=== PATIENT | female | born 1965 | race Caucasian/White ===

== ENCOUNTER → 2016-10-11 | Outpatient (CLI) | payer MEDICARE, BC ==
[~2016-10-11] MED LIST: DENOSUMAB 60 MG/ML 1 ML SYRINGE SQ ONE
[2016-10-11 09:15] VITALS: BP 102/67; PULSE 66; RESP 18; TEMP 98.2
== END | disposition home or self-care (01) ==
LOC: PROCWHC3 08:55
PROVIDERS: ATTEND Family Medicine
DX: M81.0 Age-related osteoporosis without current pathological fracture (principal)
CPT/HCPCS: 96372; J0897

== ENCOUNTER → 2016-10-13 | Outpatient (CLI) | payer MEDICARE, BC ==
--- NOTE | 2016-10-13 13:53 | XR ---
ADDENDUM - Added by Tristian Canales M.D. on 10/13/2016 12:46 PM (-08:00) RIGHT SHOULDER, Views INDICATION: Right shoulder pain COMPARISON: None FINDINGS: 3 views of the right shoulder are obtained. Bony structures are intact. Bone mineralization is within normal limits. No dislocation at the glenohumeral joint. Joint spaces are preserved. Soft tissues are within normal limits. IMPRESSION: No acute fracture or dislocation identified. FILM RIGHT SHOULDER: Bony structures are intact. Bone mineralization is within normal limits. No dislocation at the glenohumeral joint. Joint spaces are preserved. Soft tissues are within normal limits.
== END | disposition home or self-care (01) ==
LOC: RADXRMAIN 12:01
PROVIDERS: ATTEND Family Medicine
DX: M25.511 Pain in right shoulder (principal)

== ENCOUNTER → 2016-11-08 | Outpatient (CLI) | payer MEDICARE, BC ==
--- NOTE | 2016-11-08 12:52 | MR ---
MR brain with and without contrast HISTORY: Malignant brain tumor Multiplanar multisequence and postcontrast images through the brain following 10 cc MultiHance IV cor related to prior brain MRI October There is no restricted diffusion. There is no hemorrhage or hydrocephalus. White matter demyelination , craniotomy changes are again noted as on prior exam. No abnormal enhancement suggest tumor recurren ce. Some focal encephalomalacia present at the left parietal lobe at the level of the convexity as on prior exam. Cerebellopontine angles, corpus callosum, pituitary, cervical medullary junction are sta ble. The orbits show symmetric appearance. IMPRESSION: Stable exam, no significant interval change is evident.
== END ==
LOC: RADMRIMAIN 10:14
PROVIDERS: ATTEND Neurological Surgery
DX: C71.9 Malignant neoplasm of brain, unspecified (principal)
CPT/HCPCS: 70553; A9577

== ENCOUNTER → 2016-12-10 | Outpatient (CLI) | payer MEDICARE, BC ==
--- NOTE | 2016-12-10 13:09 | MR ---
EXAMINATION TYPE: MR shoulder RT wo con DATE OF EXAM: 12/10/2016 9:31 AM COMPARISON: Plain film one October 2016 HISTORY: Right shoulder pain TECHNIQUE: Multiplanar, multisequence imaging of the right shoulder is performed without contrast. FINDINGS: Rotator Cuff: There is no casie tear, some fluid signal present in the subacromial subdeltoid bursa, the tendon shows abnormal increased signal and is somewhat attenuated. Acromioclavicular Joint: Intact, hypertrophic change causes some mass effect on the musculotendinous junction of supraspinatus, there is acromial spur distally which may cause some minimal mass effect o n the musculotendinous junction of supraspinatus. Glenohumeral Joint: Intact, no significant arthropathy Labrum: The labrum appears grossly intact given limitation of non-arthrogram study. Biceps Tendon: Biceps tendon shows a normal position, some fluid signal is present along the tendon. Bone marrow signal: No focal abnormal marrow signal is appreciated. Other: No additional significant abnormality is appreciated. IMPRESSION: Suspect tendinosis of the supraspinatus tendon, difficult to exclude a small partial-thickness tear. Correlate for impingement.
== END | disposition home or self-care (01) ==
LOC: RADMRIMAIN 08:45
PROVIDERS: ATTEND Family Medicine
DX: M25.511 Pain in right shoulder (principal)

== ENCOUNTER → 2017-02-21 | Outpatient (CLI) | payer MEDICARE, BC ==
--- NOTE | 2017-02-22 13:00 | MM ---
Reason for exam: screening (asymptomatic). Last mammogram was performed 1 year ago. History: Patient is postmenopausal and has history of other cancer at age 38. Benign excisional biopsy of the right breast, July 31, 1998. Took hormonal contraceptives for 8 years. Took tamoxifen for 1 year beginning at age 37. Physical Findings: A clinical breast exam by your physician is recommended on an annual basis and results should be correlated with mammographic findings. MG 3D Screening Mammo W/Cad Bilateral CC and MLO view(s) were taken. Prior study comparison: February 17, 2016, bilateral MG 3d screening mammo w/cad. The breast tissue is heterogeneously dense. This may lower the sensitivity of mammography. ASSESSMENT: Incomplete: need additional imaging evaluation, BI-RAD 0 RECOMMENDATION: Ultrasound of both breasts. [facility] will attempt to contact patient to return for ultrasound. Palpable abnormality Manage patient on a clinical basis, palpable regions.
--- NOTE | 2017-02-22 17:15 | BD ---
EXAMINATION TYPE: MG DEXA axial skeleton. DATE OF EXAM: 02/21/2017 COMPARISON: NONE CLINICAL HISTORY: Height: 64.5 IN Weight: 117 LBS FRAX RISK QUESTIONS: Alcohol (3 or more units per day): NO Family History (Parent hip fracture): NO Glucocorticoids (More than 3mos): NO (Ex: prednisone, prednisolone, methylprednisolone, dexamethasone, and hydrocortisone). History of Fracture in Adulthood: NO Secondary Osteoporosis: 1. Type 1 Diabetes: NO 2. Hyperthyroidism: NO 3. Menopause before 45: YES AGE 37 4. Malnutrition: YES WHEN HAD BRAIN TUMOR AT AGE 38 5. Chronic liver disease: NO Rheumatoid Arthritis: NO Current Tobacco Use: NO RISK FACTORS HISTORY OF: Active: YES Diet low in dairy products/other sources of calcium: YES Postmenopausal woman: AGE 37 PARTIAL HYST. 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 Bone mineral density as measured about the Lumbar spine is: ----- L1-L4(G/cm2): 1.173 T Score Values are as follows: ----- L2: -0.1 ----- L3: 0.6 ----- L4: -0.4 ----- L1-L4: -0.1 Bone mineral density has: Increased 2.9% since study of: 01/27/2015 Bone mineral density about the R hip (g/cm2): 0.854 Bone mineral density about the L hip (g/cm2): 0.815 T Score values are as follows: -----R Neck: -1.3 -----L Neck: -1.6 -----R Total: -1.8 -----L Total: -1.3 Bone mineral density has: Increased 6.6% since study of: 01/27/2015 IMPRESSION: Osteopenia (T Score between -2.5 and -1 as noted by T score values There is slightly increased risk of fracture and the patient may be considered for treatment. Re-Screen 2-5 years. Bone density has improved 2.9% from the the comparison of 2014 within the lumbar spine. Bone density is improved 6.6% within the bilateral hips from 2015. NOTE: T-SCORE=SD OF THE YOUNG ADULT MEAN.
== END | disposition home or self-care (01) ==
LOC: RADBDWWP 15:34
PROVIDERS: ATTEND Obstetrics & Gynecology
DX: Z12.31 Encounter for screening mammogram for malignant neoplasm of breast (principal); M85.852 Other specified disorders of bone density and structure, left thigh; M85.851 Other specified disorders of bone density and structure, right thigh
CPT/HCPCS: 77080; 77063; G0202

== ENCOUNTER → 2017-02-24 | Outpatient (CLI) | payer MEDICARE, BC ==
--- NOTE | 2017-02-24 11:27 | USB ---
Reason for exam: additional evaluation requested from abnormal screening. History: Patient is postmenopausal and has history of other cancer at age 38. Benign excisional biopsy of the right breast, July 31, 1998. Took hormonal contraceptives for 8 years. Took tamoxifen for 1 year beginning at age 37. Physical Findings: Nurse did not find any significant physical abnormalities on exam. US Breast Workup ANDREA Right breast ultrasound includes all four quadrants, the retroareolar region and axilla. Finding demonstrates no cystic or solid lesion seen. Left breast ultrasound includes all four quadrants, the retroareolar region and axilla. Finding demonstrates no cystic or solid lesion seen. These results were verbally communicated with the patient and result sheet given to the patient on 02/24/17. ASSESSMENT: Probably benign, BI-RAD 3 RECOMMENDATION: Ultrasound of both breasts in 6 months. Manage patient on a clinical basis.
== END | disposition home or self-care (01) ==
LOC: RADUSWWP 10:07
PROVIDERS: ATTEND Obstetrics & Gynecology
DX: R92.8 Other abnormal and inconclusive findings on diagnostic imaging of breast (principal)

== ENCOUNTER → 2017-04-11 | Outpatient (CLI) | payer MEDICARE, BC ==
[2017-04-11 08:55] VITALS: BP 104/69; PULSE 66; RESP 16; TEMP 98.4
== END | disposition home or self-care (01) ==
LOC: PROCWHC3 08:40
PROVIDERS: ATTEND Family Medicine
DX: M81.0 Age-related osteoporosis without current pathological fracture (principal)
CPT/HCPCS: 96372; J0897

== ENCOUNTER → 2017-10-11 | Outpatient (CLI) | payer MEDICARE, BC ==
[2017-10-11 08:51] VITALS: BP 131/62; PULSE 74; RESP 18; TEMP 98.4
== END | disposition home or self-care (01) ==
LOC: PROCWHC3 08:22
PROVIDERS: ATTEND Family Medicine
DX: M81.0 Age-related osteoporosis without current pathological fracture (principal)
CPT/HCPCS: 96372; J0897

== ENCOUNTER → 2017-11-08 | Outpatient (CLI) | payer MEDICARE, BC ==
--- NOTE | 2017-11-08 10:27 | MR ---
EXAMINATION TYPE: MR brain wo/w con DATE OF EXAM: 11/08/2017 COMPARISON: 11/08/2016 HISTORY: Malignant neoplasm of brain, unspecified CONTRAST: Performed utilizing 6 mL intravenous Gadavist gadolinium contrast. TECHNIQUE: Multiplanar, multiecho imaging on a 3.0 Opal magnet is performed through the brain. Stud y is performed within 24 hours of arrival to the hospital. The craniovertebral junction is normal. The pituitary is normal. Diffusion-weighted imaging is performed. No abnormal hyperintensity is present to suggest an acute i ntracranial infarct or acute ischemic change. There is confluent white matter changes left centrum semiovale. Some mild increased signal is present to the right centrum semiovale. This may be more focal in the left parietal-occipital region. These areas were present previously and appears stable. Ventricles and sulci are appropriate for the patient age. No abnormal enhancement is evident. IMPRESSIONS: 1. Stable deep white matter changes. 2. No suspicious recurrent or enhancing masses are evident.
== END ==
LOC: RADMRIMAIN 08:37
PROVIDERS: ATTEND Neurological Surgery
DX: C71.9 Malignant neoplasm of brain, unspecified (principal); R90.89 Other abnormal findings on diagnostic imaging of central nervous system
CPT/HCPCS: 70553; A9581

== ENCOUNTER → 2018-01-11 | Outpatient (CLI) | payer MEDICARE, BC ==
--- NOTE | 2018-01-11 08:54 | US ---
EXAMINATION TYPE: US kidneys/renal and bladder DATE OF EXAM: 01/11/2018 COMPARISON: NONE CLINICAL HISTORY: 52-year-old female R94.4 Abnormal Renal Function. Abnormal labs, no pain TECHNIQUE: Multiple sonographic images of the kidneys are obtained. FINDINGS: EXAM MEASUREMENTS: Right Kidney: 8.8 x 4.1 x 4.6 cm Left Kidney: 8.1 x 3.6 x 4.7 cm Right Kidney: No hydronephrosis. Left Kidney: No hydronephrosis. Bladder: wnl Bilateral Jets seen IMPRESSION: No hydronephrosis. Both ureteral jets are seen.
== END | disposition home or self-care (01) ==
LOC: RADUSWWP 08:04
PROVIDERS: ATTEND Family Medicine
DX: R94.4 Abnormal results of kidney function studies (principal)
CPT/HCPCS: 76770

== ENCOUNTER → 2018-01-23 | Outpatient (CLI) | payer MEDICARE, BC ==
[2018-01-23 10:16] LABS: Anion Gap 8 mmol/L; Blood Urea Nitrogen 14 mg/dL (7-17); Calcium 8.7 mg/dL (8.4-10.2); Carbon Dioxide 28 mmol/L (22-30); Chloride 105 mmol/L (98-107); Glucose 95 mg/dL (74-99); Potassium 4.6 mmol/L (3.5-5.1); Sodium 141 mmol/L (137-145)
[2018-01-23 11:33] LABS: Collection Time,Urine 24 hrs; Total Volume 24 Hour,Urine 1000 mls (800-1800)
[2018-01-23 11:55] LABS: Total Protein 24 Hour,Urine 110 mg/24hr (42.0-225.0)
[2018-01-23 21:16] LABS: Hemoglobin A1C 5.6 % (4.0-6.0)
== END | disposition home or self-care (01) ==
LOC: LABWHC1 09:02
PROVIDERS: ATTEND Family Medicine
DX: R94.4 Abnormal results of kidney function studies (principal); R73.09 Other abnormal glucose
CPT/HCPCS: 36415; 80048; 81050; 82575; 83036; 84156

== ENCOUNTER → 2018-02-28 | Outpatient (CLI) | payer MEDICARE, BC ==
--- NOTE | 2018-02-28 09:38 | MM ---
Reason for exam: additional evaluation requested from prior study. Last mammogram was performed 1 year ago. History: Patient is postmenopausal and has history of other cancer at age 38. Benign excisional biopsy of the right breast, July 31, 1998. Took hormonal contraceptives for 8 years. Took tamoxifen for 1 year beginning at age 37. Physical Findings: Nurse Summary: 1cm nodule in the right breast at 11 o'clock and a 1cm nodule in the left breast at 12 o'clock (nurse dw). MG 3D Diag Mammo W/Cad ANDREA Bilateral CC and MLO view(s) were taken. Prior study comparison: February 21, 2017, bilateral MG 3d screening mammo w/cad. February 17, 2016, bilateral MG 3d screening mammo w/cad. The breast tissue is heterogeneously dense. This may lower the sensitivity of mammography. There is no discrete abnormality. These results were verbally communicated with the patient and result sheet given to the patient on 02/28/18. ASSESSMENT: Incomplete: need additional imaging evaluation, BI-RAD 0 RECOMMENDATION: Ultrasound of both breasts. (palpable by nurse)
--- NOTE | 2018-02-28 09:39 | USB ---
Reason for exam: additional evaluation requested from abnormal screening. History: Patient is postmenopausal and has history of other cancer at age 38. Benign excisional biopsy of the right breast, July 31, 1998. Took hormonal contraceptives for 8 years. Took tamoxifen for 1 year beginning at age 37. US Breast Limited BILAT Right limited breast ultrasound including focal area of concern, retroareolar and axilla is negative. Left limited breast ultrasound including focal area of concern, retroareolar and axilla is negative. These results were verbally communicated with the patient and result sheet given to the patient on 02/28/18. ASSESSMENT: Negative, BI-RAD 1 RECOMMENDATION: Routine screening mammogram of both breasts in 1 year.
== END | disposition home or self-care (01) ==
LOC: RADMAMWWP 08:11
PROVIDERS: ATTEND Obstetrics & Gynecology
DX: R92.8 Other abnormal and inconclusive findings on diagnostic imaging of breast (principal)
CPT/HCPCS: 77066; 76642; G0279; 77062

== ENCOUNTER → 2018-04-11 | Outpatient (CLI) | payer MEDICARE, BC ==
[2018-04-11 09:31] VITALS: BP 108/74; PULSE 70; RESP 15; TEMP 98.3
== END | disposition home or self-care (01) ==
LOC: PROCWHC3 09:18
PROVIDERS: ATTEND Physician Assistant
DX: M81.0 Age-related osteoporosis without current pathological fracture (principal)
CPT/HCPCS: 96372; J0897

== ENCOUNTER → 2018-06-28 | Day surgery (SDC) | payer MEDICARE, BC ==
[2018-06-27 09:12] VITALS: BMI 19.1
[~2018-06-28] MED LIST changes: -DENOSUMAB 60 MG/ML 1 ML SYRINGE SQ ONE; +LACTATED RINGERS 1,000 ML IV SCH; +LIDOCAINE 1% 20 ML VIAL (10MG/ML) FOR IV START INTRADERMA PRN; +LIDOCAINE 1% INJ 10MG/ML (20 ML MDV) ONE; +PROPOFOL 10 MG/ML 20 ML VIAL IV ONE
[2018-06-28 09:37] VITALS: RESP 16; TEMP 98.3
--- NOTE | 2018-06-28 10:52 | P.PCN ---
Date of Procedure: 06/28/18 Procedure(s) Performed: Brief history: Patient is a pleasant 53-year-old white female, scheduled for an elective upper endoscopy as well as colonoscopy as a part of evaluation of GERD and screening for colorectal neoplasia. Procedure performed: Esophagogastroduodenoscopy with biopsy Colonoscopy Preoperative diagnosis: GERD Screening for colon cancer Anesthesia: MAC Procedure: After informed consent was obtained from the patient was brought into the endoscopy unit and IV sedation was administered by anesthesia under continuous monitoring. Initially upper endoscopy was done. The Olympus GF 160 video endoscope was inserted inserted into the mouth and esophagus intubated without any difficulty and was gradually advanced into the stomach and duodenum and carefully examined. The bulb and second part of the duodenum appeared normal. The scope was then withdrawn into the stomach adequately insufflated with air and upon careful examination the antrum had mild gastritis and biopsies were done from this area. The body, cardia and fundus appeared normal. The scope was then withdrawn into the esophagus. The GE junction was located at 40 cm to the incisors. It appeared regular with no erythema erosions or ulcerations. Rest of the esophagus appeared normal. Patient tolerated the procedure well. At this time the patient continued to remain sedation. Initial digital rectal examination was normal. Olympus CF 160 video colonoscope was then inserted into the rectum and gradually advanced to the cecum without any difficulty. Careful examination was performed as the scope was gradually being withdrawn. The prep was poor in several days of the colon despite irrigation.. The visualized mucosa of the cecum, ascending colon, transverse colon, descending colon, sigmoid colon and rectum appeared normal. Retroflexion was performed in the rectum and no lesions were noted. Patient tolerated the procedure well. Impression: 1. Upper endoscopy revealed mild antral gastritis. 2. Colonoscopy revealed poor prep in several areas of the colon but no evidence of colorectal neoplasia Recommendations: Findings of this examination were discussed with the patient as well as[ her family. She was advised to follow with the biopsy results. She was advised to have a repeat scanning colonoscopy in 5 days from now because of the poor prep.
[2018-06-28 11:53] VITALS: BP 121/78; PULSE 61
== END ==
LOC: ORWHC2ENDO 08:57
PROVIDERS: ATTEND Internal Medicine Gastroenterology
DX: Z12.11 Encounter for screening for malignant neoplasm of colon (principal); K29.50 Unspecified chronic gastritis without bleeding; Z79.899 Other long term (current) drug therapy; Z88.8 Allergy status to other drugs, medicaments and biological substances; Z79.890 Hormone replacement therapy; Z79.891 Long term (current) use of opiate analgesic
CPT/HCPCS: 88305; 43239; J2001; J2704; G0121; 45378

== ENCOUNTER → 2018-10-25 | Outpatient (CLI) | payer MEDICARE, BC ==
[~2018-10-25] MED LIST changes: +DENOSUMAB 60 MG/ML 1 ML SYRINGE SQ ONE; -LACTATED RINGERS 1,000 ML IV SCH; -LIDOCAINE 1% 20 ML VIAL (10MG/ML) FOR IV START INTRADERMA PRN; -LIDOCAINE 1% INJ 10MG/ML (20 ML MDV) ONE; -PROPOFOL 10 MG/ML 20 ML VIAL IV ONE
== END | disposition home or self-care (01) ==
LOC: PROCWHC3 09:24
PROVIDERS: ATTEND Physician Assistant
DX: M81.0 Age-related osteoporosis without current pathological fracture (principal)
CPT/HCPCS: 96372; J0897

== ENCOUNTER 2018-11-16 10:57 | Emergency (ER) | payer MEDICARE, BC ==
[2018-11-16 11:03] VITALS: RESP 18
[2018-11-16] MEDS ORDERED: SODIUM CHLORIDE 0.9% 1,000 ML IV STA (11:38)
[2018-11-16 11:54] LABS: Basophils % (A) 1 %; Eosinophils # (A) 0.2 k/uL (0-0.7); Eosinophils % (A) 6 %; HCT 38.2 % (34.0-46.0); HGB 12.5 gm/dL (11.4-16.0); Lymphocytes # (A) 0.6 k/uL (1.0-4.8); Lymphocytes % (A) 16 %; MCH 30.4 pg (25.0-35.0); MCHC 32.6 g/dL (31.0-37.0); MCV 93.1 fL (80.0-100.0); Mean Platelet Volume 7.2; Monocytes # (A) 0.3 k/uL (0-1.0); Monocytes % (A) 8 %; Neutrophils # (A) 2.2 k/uL (1.3-7.7); Neutrophils % (A) 66 %; Platelet Count 178 k/uL (150-450); RDW 13.1 % (11.5-15.5); WBC 3.4 k/uL (3.8-10.6)
[2018-11-16 12:01] LABS: Albumin 4.2 g/dL (3.5-5.0); Magnesium 2.2 mg/dL (1.6-2.3); Potassium 4.3 mmol/L (3.5-5.1); Total Bilirubin 0.5 mg/dL (0.2-1.3); Total Protein 6.8 g/dL (6.3-8.2)
[2018-11-16 12:04] LABS: INR 0.9 (<1.2); Partial Thromboplastin Time 23.6 sec (22.0-30.0); Prothrombin Time 9.8 sec (9.0-12.0)
--- NOTE | 2018-11-16 12:10 | ED ---
General Adult HPI - General Chief complaint: Syncope Stated complaint: syncope Time Seen by Provider: 11/16/18 11:00 Source: patient, RN notes reviewed Mode of arrival: ambulatory Limitations: no limitations - History of Present Illness Initial comments: This is a 53-year-old female presents emergency Department complaining of having passed out. Patient has a past medical history significant for glioblastoma 16 years ago. Patient has had surgery for that 16 years ago. Patient states today she got up felt very weak and lightheaded and the next thing she remembers is waking up on the floor. Patient states when she initially woke up she had some pain to the right side of her head her arm was a little bit sore as was her leg all of that has resolved. Patient currently denies any headache. Patient denies any shortness of breath. Patient denies any palpitations. Patient states she does have a history of seizures but she hasn't had one in quite a while. Patient states she is unsure she had a seizure today she was not incontinent of urine or stool. Patient did eventually make it to a phone and call her and at that time was able to at least tell her what was going on. states she was very slow but accurate. No one was with the patient when she passed out. Patient states lately she has been fighting an upper respiratory infection and has had a cough and sore throat. - Related Data Home Medications Medication Instructions Recorded Confirmed Citalopram Hydrobromide [CeleXA] 40 mg PO HS 06/12/14 11/16/18 Baclofen [Lioresal] 20 mg PO HS 10/11/16 11/16/18 Denosumab [Prolia] 60 mg SQ ONCE 10/11/16 11/16/18 Zonisamide [Zonegran] 300 mg PO DAILY 10/11/16 11/16/18 clonazePAM [KlonoPIN] 0.5 mg PO HS 10/11/16 11/16/18 Amitriptyline HCl [Elavil] 10 mg PO HS 11/16/18 11/16/18 Amitriptyline HCl [Elavil] 25 mg PO HS 11/16/18 11/16/18 Azithromycin [Zithromax Z-pack] See Taper PO DAILY 11/16/18 11/16/18 Levothyroxine Sodium [Synthroid] 50 mcg PO DAILY 11/16/18 11/16/18 Loratadine [Claritin] 10 mg PO DAILY 11/16/18 11/16/18 Allergies Allergy/AdvReac Type Severity Reaction Status Date / Time lamotrigine [From Lamictal] Allergy Rash/Hives Verified 11/16/18 11:18 phenytoin sodium Allergy Anaphylaxis Verified 11/16/18 11:18 [From Dilantin] phenytoin sodium extended Allergy Anaphylaxis Verified 11/16/18 11:18 [From Dilantin] Review of Systems ROS Statement: Those systems with pertinent positive or pertinent negative responses have been documented in the HPI. ROS Other: All systems not noted in ROS Statement are negative. Past Medical History Past Medical History: Cancer, Seizure Disorder Additional Past Medical History / Comment(s): Brain Tumor - 2002. Chemotherapy and Radiation for brain tumor. Osteoporosis History of Any Multi-Drug Resistant Organisms: None Reported Past Surgical History: Cholecystectomy, Hysterectomy Additional Past Surgical History / Comment(s): Brain surgery for Cancer; Colonoscopy Past Anesthesia/Blood Transfusion Reactions: No Reported Reaction Past Psychological History: Anxiety, Depression Smoking Status: Never smoker Past Alcohol Use History: None Reported Past Drug Use History: None Reported - Past Family History Father Family Medical History: Cancer Additional Family Medical History / Comment(s): Brain tumor General Exam - General Exam Comments Initial Comments: GENERAL: Patient is well-developed and well-nourished. Patient is nontoxic and well- hydrated and is in no acute distress. ENT: Neck is soft and supple. No significant lymphadenopathy is noted. Oropharynx is clear. Moist mucous membranes. Neck has full range of motion without eliciting any pain. EYES: The sclera were anicteric and conjunctiva were pink and moist. Extraocular movements were intact and pupils were equal round and reactive to light. Eyelids were unremarkable. PULMONARY: Unlabored respirations. Good breath sounds bilaterally. No audible rales rhonchi or wheezing was noted. CARDIOVASCULAR: Patient is a regular rate and rhythm. ABDOMINAL: Patient's abdomen is soft nontender. SKIN: Skin is clear with no lesions or rashes and otherwise unremarkable. NEUROLOGIC: Patient is alert and oriented x3. Cranial nerves II through XII are grossly intact. Motor and sensory are also intact. Normal speech, volume and content. Symmetrical smile. MUSCULOSKELETAL: Normal extremities with adequate strength and full range of motion. No lower extremity swelling or edema. No calf tenderness. LYMPHATICS: No significant lymphadenopathy is noted PSYCHIATRIC: Normal psychiatric evaluation. Limitations: no limitations Course Vital Signs 11/16/18 11/16/18 11/16/18 10:58 11:25 11:30 Temperature 97.7 F Pulse Rate 72 71 Respiratory 18 23 18 Rate Blood Pressure 114/73 99/70 O2 Sat by Pulse 100 96 Oximetry 11/16/18 11/16/18 12:30 13:00 Temperature Pulse Rate 72 71 Respiratory 18 18 Rate Blood Pressure 102/73 O2 Sat by Pulse 97 96 Oximetry Medical Decision Making - Medical Decision Making EKG shows normal sinus rhythm at 60 bpm [place] interval 142 QRS is 88 QT interval 434 QTC is 461. Patient's EKG shows no ST segment elevation or depression or T wave abnormalities are noted. CT shows no acute abnormalities. Chest x-ray shows no acute abnormality. It was are unsure if the patient had a seizure or not so we will be transferring the patient [facility]. I spoke with Dr. Rosales at [facility] she accepted the transfer. - Lab Data Result diagrams: 11/16/18 11:35 11/16/18 11:35 Lab Results 11/16/18 11/16/18 11/16/18 Range/Units 11:35 11:35 11:35 WBC 3.4 L (3.8-10.6) k/uL RBC 4.10 (3.80-5.40) m/uL Hgb 12.5 (11.4-16.0) gm/dL Hct 38.2 (34.0-46.0) % MCV 93.1 (80.0-100.0) fL MCH 30.4 (25.0-35.0) pg MCHC 32.6 (31.0-37.0) g/dL RDW 13.1 (11.5-15.5) % Plt Count 178 (150-450) k/uL Neutrophils % 66 % Lymphocytes % 16 % Monocytes % 8 % Eosinophils % 6 % Basophils % 1 % Neutrophils # 2.2 (1.3-7.7) k/uL Lymphocytes # 0.6 L (1.0-4.8) k/uL Monocytes # 0.3 (0-1.0) k/uL Eosinophils # 0.2 (0-0.7) k/uL Basophils # 0.0 (0-0.2) k/uL PT 9.8 (9.0-12.0) sec INR 0.9 (<1.2) APTT 23.6 (22.0-30.0) sec Sodium 138 (137-145) mmol/L Potassium 4.3 (3.5-5.1) mmol/L Chloride 105 (98-107) mmol/L Carbon Dioxide 27 (22-30) mmol/L Anion Gap 6 mmol/L BUN 16 (7-17) mg/dL Creatinine 0.95 (0.52-1.04) mg/dL Est GFR (CKD-EPI)AfAm 78 (>60 ml/min/1.73 sqM) Est GFR (CKD-EPI)NonAf 68 (>60 ml/min/1.73 sqM) Glucose 92 (74-99) mg/dL Calcium 9.0 (8.4-10.2) mg/dL Magnesium 2.2 (1.6-2.3) mg/dL Total Bilirubin 0.5 (0.2-1.3) mg/dL AST 24 (14-36) U/L ALT 35 (9-52) U/L Alkaline Phosphatase 65 (38-126) U/L Troponin I (0.000-0.034) ng/mL Total Protein 6.8 (6.3-8.2) g/dL Albumin 4.2 (3.5-5.0) g/dL Group A Strep Rapid (Negative) 11/16/18 11/16/18 Range/Units 11:35 12:20 WBC (3.8-10.6) k/uL RBC (3.80-5.40) m/uL Hgb (11.4-16.0) gm/dL Hct (34.0-46.0) % MCV (80.0-100.0) fL MCH (25.0-35.0) pg MCHC (31.0-37.0) g/dL RDW (11.5-15.5) % Plt Count (150-450) k/uL Neutrophils % % Lymphocytes % % Monocytes % % Eosinophils % % Basophils % % Neutrophils # (1.3-7.7) k/uL Lymphocytes # (1.0-4.8) k/uL Monocytes # (0-1.0) k/uL Eosinophils # (0-0.7) k/uL Basophils # (0-0.2) k/uL PT (9.0-12.0) sec INR (<1.2) APTT (22.0-30.0) sec Sodium (137-145) mmol/L Potassium (3.5-5.1) mmol/L Chloride (98-107) mmol/L Carbon Dioxide (22-30) mmol/L Anion Gap mmol/L BUN (7-17) mg/dL Creatinine (0.52-1.04) mg/dL Est GFR (CKD-EPI)AfAm (>60 ml/min/1.73 sqM) Est GFR (CKD-EPI)NonAf (>60 ml/min/1.73 sqM) Glucose (74-99) mg/dL Calcium (8.4-10.2) mg/dL Magnesium (1.6-2.3) mg/dL Total Bilirubin (0.2-1.3) mg/dL AST (14-36) U/L ALT (9-52) U/L Alkaline Phosphatase (38-126) U/L Troponin I <0.012 (0.000-0.034) ng/mL Total Protein (6.3-8.2) g/dL Albumin (3.5-5.0) g/dL Group A Strep Rapid Negative (Negative) Disposition Clinical Impression: Syncope and collapse Disposition: OTHER INSTITUTION NOT DEFINED Referrals: Angel Bains MD [Primary Care Provider] - 1-2 days Time of Disposition: 13:28 - Out of Hospital Transfer - Req. Specs Out of Hospital Transfer - Requested Specifics: Other Emergency Center ([facility]
--- NOTE | 2018-11-16 12:17 | CT ---
EXAMINATION TYPE: CT brain wo con DATE OF EXAM: 11/16/2018 COMPARISON: 03/11/2015 HISTORY: 53-year-old female syncopal episode. Pain. History of brain ca with surgery TECHNIQUE: Examination was done in axial plane without intravenous contrast. Coronal and sagittal r econstructions performed. CT DLP: 1079.4 mGycm Automated exposure control for dose reduction was used. FINDINGS: There is no evidence of acute intracranial hemorrhage, acute ischemic changes, mass, mass-effect, or extra-axial fluid collection. There is no effacement of cerebral sulci or basal subarachnoid cister ns. There is no hydrocephalus. There is no midline shift. Evans-white matter distinction is preserv ed. Trace mucosal thickening sphenoid sinuses and ethmoid air cells. Mastoid air cells well pneumatized. The globes appear intact. Stable white matter hypodensities throughout the left cerebral hemisphere with prior left frontal nut cracker niotomy flap. IMPRESSION: Exam is stable from 03/11/2015 with left frontal craniotomy flap and underlying white matter hypodensi ties throughout the left cerebral hemisphere. Possible posttreatment change. Follow-up MRI as clinica lly indicated for surveillance purposes. No acute intracranial abnormality seen.
--- NOTE | 2018-11-16 12:19 | XR ---
EXAMINATION TYPE: XR chest 2V DATE OF EXAM: 11/16/2018 COMPARISON: 08/17/2010 HISTORY: 53-year-old female with chest pain TECHNIQUE: AP and lateral views FINDINGS: The cardiomediastinal silhouette, aorta, and pulmonary vasculature are within normal limits. Lungs an d pleural spaces are clear. IMPRESSION: No acute cardiopulmonary process.
[2018-11-16 14:08] VITALS: BP 110/74; PULSE 73; TEMP 98
== END 2018-11-16 14:27 | disposition short-term general hospital (02) ==
LOC: EC 10:57
DX: R55 Syncope and collapse (principal); R53.1 Weakness; J06.9 Acute upper respiratory infection, unspecified; G40.909 Epilepsy, unspecified, not intractable, without status epilepticus; M81.0 Age-related osteoporosis without current pathological fracture; F32.9 Major depressive disorder, single episode, unspecified; F41.9 Anxiety disorder, unspecified; Z88.8 Allergy status to other drugs, medicaments and biological substances; Z79.890 Hormone replacement therapy; Z79.899 Other long term (current) drug therapy; Z92.21 Personal history of antineoplastic chemotherapy; Z92.3 Personal history of irradiation; Z85.841 Personal history of malignant neoplasm of brain; Z98.890 Other specified postprocedural states; Z80.8 Family history of malignant neoplasm of other organs or systems
CPT/HCPCS: 36415; 70450; 71046; 80053; 83735; 84484; 85025; 85610; 85730; 87081; 87430; 93005; 96360; 99285

== ENCOUNTER → 2018-12-04 | Outpatient (CLI) | payer MEDICARE, BC ==
--- NOTE | 2018-12-04 11:48 | MR ---
PRE AND POSTCONTRAST ENHANCED MRI OF THE BRAIN: CLINICAL HISTORY: Follow-up glioma COMPARISON: 11/08/2017 CONTRAST: 5 mL Gadavist Multiplanar and multispin-echo imaging of the brain was performed both before and after the administr ation of contrast. Left frontal craniotomy changes redemonstrated. There is evidence of postoperative gliosis with incre ased signal involving the centrum semioval bilaterally on the left. No evidence for recurrent or resi dual mass. Mild increased signal within the deep white matter of the right centrum semioval bilateral ly is stable as well. There is no evidence for midline shift or mass effect. Acute intracranial hemorrhage or extra-axial collection is not evident. Following contrast administration, there is no evidence for pathologic enhancement or enhancing mass. The paranasal sinuses and mastoid air cells are well-aerated. IMPRESSION: Stable postoperative change and postoperative gliosis of the left centrum semioval bilate rally. No evidence for recurrent or residual lesion at this time.
== END | disposition home or self-care (01) ==
LOC: RADMRIMAIN 09:47
PROVIDERS: ATTEND Neurological Surgery
DX: Z08 Encounter for follow-up examination after completed treatment for malignant neoplasm (principal); G93.89 Other specified disorders of brain; Z85.841 Personal history of malignant neoplasm of brain; Z98.890 Other specified postprocedural states
CPT/HCPCS: 70553; A9585

== ENCOUNTER → 2019-03-08 | Outpatient (CLI) | payer MEDICARE, BC ==
--- NOTE | 2019-03-12 09:17 | MM ---
Reason for exam: screening (asymptomatic). Last mammogram was performed 1 year ago. History: Patient is postmenopausal and has history of other cancer at age 38. Benign excisional biopsy of the right breast, July 31, 1998. Took hormonal contraceptives for 8 years. Took tamoxifen for 1 year beginning at age 37. Physical Findings: A clinical breast exam by your physician is recommended on an annual basis and results should be correlated with mammographic findings. MG 3D Screening Mammo W/Cad Bilateral CC and MLO view(s) were taken. Prior study comparison: February 28, 2018, bilateral MG 3d diag mammo w/cad ANDREA. February 21, 2017, bilateral MG 3d screening mammo w/cad. The breast tissue is heterogeneously dense. This may lower the sensitivity of mammography. No significant changes when compared with prior studies. ASSESSMENT: Negative, BI-RAD 1 RECOMMENDATION: Routine screening mammogram of both breasts in 1 year.
== END | disposition home or self-care (01) ==
LOC: RADMAMWWP 09:18
PROVIDERS: ATTEND Obstetrics & Gynecology
DX: Z12.31 Encounter for screening mammogram for malignant neoplasm of breast (principal)
CPT/HCPCS: 77063; 77067

== ENCOUNTER → 2019-03-29 | Outpatient (CLI) | payer MEDICARE, BC ==
[2019-03-29 13:15] LABS: HGB 12.6 gm/dL (11.4-16.0); MCH 30.5 pg (25.0-35.0); MCHC 33.1 g/dL (31.0-37.0); MCV 92.1 fL (80.0-100.0); Mean Platelet Volume 6.8; Platelet Count 249 k/uL (150-450); RBC 4.13 m/uL (3.80-5.40); RDW 14.2 % (11.5-15.5); WBC 3.8 k/uL (3.8-10.6)
[2019-03-29 18:56] LABS: African American GFR (CKD) 72.9 (60.0-200.0); Albumin 4.7 g/dL (3.80-4.90); Albumin/Globulin Ratio 2.35 (1.60-3.17); Anion Gap 4.9 mmol/L (4.00-12.00); Calcium 9.8 mg/dL (8.7-10.3); Carbon Dioxide 27.1 mmol/L (21.6-31.8); Potassium 5.8 mmol/L (3.5-5.5); Total Bilirubin 0.5 mg/dL (0.3-1.2); Total Protein 6.7 g/dL (6.2-8.2)
== END | disposition home or self-care (01) ==
LOC: LABWHC1 12:14
PROVIDERS: ATTEND Psychiatry & Neurology Neurology
DX: T50.995A Adverse effect of other drugs, medicaments and biological substances, initial encounter (principal); R42 Dizziness and giddiness
CPT/HCPCS: 36415; 80053; 85027

== ENCOUNTER → 2019-04-05 | Outpatient (CLI) | payer MEDICARE, BC ==
[2019-04-06 00:33] LABS: African American GFR (CKD) 58.5 (60.0-200.0); Anion Gap 6.3 mmol/L (4.00-12.00); BUN/Creat Ratio 17.5 Ratio (12.00-20.00); Calcium 9.2 mg/dL (8.7-10.3); Carbon Dioxide 28.7 mmol/L (21.6-31.8); Potassium 4.2 mmol/L (3.5-5.5)
== END | disposition home or self-care (01) ==
LOC: LABWHC1 15:51
PROVIDERS: ATTEND Psychiatry & Neurology Neurology
DX: E78.5 Hyperlipidemia, unspecified (principal)
CPT/HCPCS: 36415; 80048

== ENCOUNTER → 2019-04-10 | Outpatient (CLI) | payer MEDICARE, BC ==
--- NOTE | 2019-04-10 10:06 | MR ---
EXAMINATION TYPE: MR cervical spine wo con DATE OF EXAM: 04/10/2019 COMPARISON: 07/10/2015 HISTORY: Cervicalgia / Myelopathy TECHNIQUE: Multiplanar, multisequence images of the cervical spine were acquired. C2-C3: No evidence for degenerative disc disease. No disc bulge/herniation or protrusion. No Canal stenosis. Foramina are patent bilaterally. C3-C4: There is disc desiccation and uncovertebral joint hypertrophy. No foraminal encroachment or ca nal stenosis. Minimal central disc bulging. Findings stable. C4-C5: There is no significant central stenosis or evident disc herniation. Mild right-sided foramina l encroachment due to lateral extension of endplate disc complex. Broad-based disc bulging and disc o steophyte complex has a stable appearance. Degenerative disc disease noted. Mild effacement of thecal sac is stable. C5-C6: Minimal retrolisthesis is noted, lateral extension of endplate disc complex bilaterally, bilat eral foraminal encroachment right greater than left is noted. Broad-based disc bulging abuts the ante rior margin of the spinal cord. There is moderate degenerative disc disease. C6-C7: Broad-based central disc bulging with no canal stenosis. Uncovertebral joint hypertrophy great er on the right results in mild right-sided foraminal encroachment. C7-T1: No evidence for degenerative disc disease. No disc bulge/herniation or protrusion. No Canal stenosis. Foramina are patent bilaterally. Cervical segments are intact. There is normal alignment. Cervical spinal cord is of normal signal. Craniovertebral junction relationships are within normal limits. IMPRESSION: 1. Stable degenerative disc disease and foraminal encroachment C4-5, C5-6 and C6-C7. 2. Multilevel disc bulging centrally with disc osteophyte complex most pronounced at C5-C6 with findi ngs suggestive of mild canal stenosis. Findings appear similar to the prior exam.
== END | disposition home or self-care (01) ==
LOC: RADMRIMAIN 09:19
PROVIDERS: ATTEND Psychiatry & Neurology Neurology
DX: M50.021 Cervical disc disorder at C4-C5 level with myelopathy (principal); M25.78 Osteophyte, vertebrae
CPT/HCPCS: 72141

== ENCOUNTER → 2019-04-12 | Outpatient (CLI) | payer MEDICARE, BC | END | disposition home or self-care (01) | LOC: LABWHC1 10:08 | PROVIDERS: ATTEND Psychiatry & Neurology Neurology | DX: G40.909 Epilepsy, unspecified, not intractable, without status epilepticus (principal) | CPT/HCPCS: 36415; 80203 ==

== ENCOUNTER → 2019-04-20 | Outpatient (CLI) | payer MEDICARE, BC ==
[2019-04-20 17:12] LABS: African American GFR (CKD) 72.9 (60.0-200.0); Anion Gap 7.4 mmol/L (4.00-12.00); Calcium 9.1 mg/dL (8.7-10.3); Carbon Dioxide 24.6 mmol/L (21.6-31.8); Potassium 4.8 mmol/L (3.5-5.5)
== END | disposition home or self-care (01) ==
LOC: LABWHC1 10:20
PROVIDERS: ATTEND Psychiatry & Neurology Neurology
DX: E87.5 Hyperkalemia (principal); R26.89 Other abnormalities of gait and mobility; G62.9 Polyneuropathy, unspecified; N28.9 Disorder of kidney and ureter, unspecified; T42.6X5A Adverse effect of other antiepileptic and sedative-hypnotic drugs, initial encounter
CPT/HCPCS: 36415; 80048; 82607; 84207

== ENCOUNTER → 2019-04-30 | Outpatient (CLI) | payer MEDICARE, BC ==
[~2019-04-30] MED LIST changes: +DENOSUMAB 60 MG/ML 1 ML SYRINGE SQ NR; -DENOSUMAB 60 MG/ML 1 ML SYRINGE SQ ONE
[2019-04-30 13:06] VITALS: BP 118/61; PULSE 75; RESP 16; TEMP 97.9
== END ==
LOC: PROCWHC3 12:56
PROVIDERS: ATTEND Family Medicine
DX: M81.0 Age-related osteoporosis without current pathological fracture (principal)

== ENCOUNTER → 2019-06-06 | Outpatient (CLI) | payer MEDICARE, BC | END | disposition home or self-care (01) | LOC: NEUROMAIN 08:25 | PROVIDERS: ATTEND Psychiatry & Neurology Neurology | DX: H81.49 Vertigo of central origin, unspecified ear (principal) | CPT/HCPCS: 92537; 92540 ==

== ENCOUNTER 2019-07-02 16:50 | Emergency (ER) | payer MEDICARE, BC ==
[2019-07-02 17:36] VITALS: RESP 18; TEMP 98.5
[2019-07-02] MEDS ORDERED: IBUPROFEN 600 MG TAB PO STA (17:53)
--- NOTE | 2019-07-02 18:41 | ED ---
Fall HPI - General Chief Complaint: Fall Stated Complaint: Trauma fall rt ft injury 13 stairs h/o Brain Tumor Time Seen by Provider: 07/02/19 17:43 Source: patient, family Mode of arrival: ambulatory - History of Present Illness Initial Comments: This 54-year-old white female presents with a complaint of a fall. She apparently was at the top of 13 steps when she lost her balance and fell down the steps. She is primarily complaining of some pain to her right foot. She also apparently hit her head and states that she is unsure if she lost consciousness. She denies any other neurologic complaints. There is no nausea or vomiting. She also complains of some pain and bruising to her left forearm. She relates a history of previous brain cancer diagnosed in 2002 she's been following at [facility]. This is apparently in remission but she does have some subsequent balance and memory problems. History is obtained per patient and also from who is present. - Related Data Home Medications Medication Instructions Recorded Confirmed Citalopram Hydrobromide [CeleXA] 40 mg PO HS 06/12/14 07/02/19 Baclofen [Lioresal] 20 mg PO HS 10/11/16 07/02/19 Denosumab [Prolia] 60 mg SQ Q168D 10/11/16 07/02/19 clonazePAM [KlonoPIN] 0.5 mg PO HS 10/11/16 07/02/19 Levothyroxine Sodium [Synthroid] 50 mcg PO DAILY 11/16/18 07/02/19 Amoxicillin 500 mg PO Q8H 07/02/19 07/02/19 Cyclobenzaprine [Flexeril] 10 mg PO HS 07/02/19 07/02/19 Temazepam [Restoril] 15 mg PO HS PRN 07/02/19 07/02/19 cycloSPORINE 0.05% OPHTH SOLN 1 applicator BOTH EYES BID 07/02/19 07/02/19 [Restasis] Allergies Allergy/AdvReac Type Severity Reaction Status Date / Time lamotrigine [From Lamictal] Allergy Rash/Hives Verified 07/02/19 18:27 phenytoin sodium Allergy Anaphylaxis Verified 07/02/19 18:27 [From Dilantin] phenytoin sodium extended Allergy Anaphylaxis Verified 07/02/19 18:27 [From Dilantin] Review of Systems ROS Statement: Those systems with pertinent positive or pertinent negative responses have been documented in the HPI. ROS Other: All systems not noted in ROS Statement are negative. Past Medical History Past Medical History: Cancer, Seizure Disorder Additional Past Medical History / Comment(s): Brain Tumor - 2002. Chemotherapy and Radiation for brain tumor. Osteoporosis History of Any Multi-Drug Resistant Organisms: None Reported Past Surgical History: Cholecystectomy, Hysterectomy Additional Past Surgical History / Comment(s): Brain surgery for Cancer; Colonoscopy Past Anesthesia/Blood Transfusion Reactions: No Reported Reaction Past Psychological History: Anxiety, Depression Smoking Status: Never smoker - Past Family History Father Family Medical History: Cancer Additional Family Medical History / Comment(s): Brain tumor General Exam - General Exam Comments Initial Comments: GENERAL: The patient is well nourished and well hydrated. VITAL SIGNS: Heart rate, blood pressure, respiratory rate reviewed as recorded in nurse's notes. EYES: Pupils are round and reactive. Extraocular movements are intact. No conjunctival / lid redness or swelling. ENT: No external evidence of injury, swelling, or ecchymosis. Airway is patent. Throat is clear. NECK: Nontender. No swelling or evidence of injury. No subcutaneous emphysema. Trachea is midline. No thyroid mass. HEART: Regular rate and rhythm. Good peripheral pulses. LUNGS/CHEST: Breath sounds clear and equal bilaterally. No rales, rhonchi, or wheezes. No ecchymosis, subcutaneous emphysema, or tenderness. ABDOMEN: Abdomen soft without tenderness. No palpable masses or organomegaly. No peritoneal signs. No abdominal wall swelling or ecchymosis. EXTREMITIES: There is some tenderness swelling and ecchymosis noted to the anterior aspect of the right foot. There is mild tenderness noted into the left forearm with occasional bruising but excellent range of motion of the wrist and elbow. Normal muscle tone and function. No thoracolumbar tenderness. NEUROLOGIC: Sensation is grossly intact. Cranial nerve exam reveals face is symmetrical, tongue is midline, speech is clear. SKIN: No abrasions or ecchymosis is noted. No induration or masses noted. PSYCHIATRIC: Alert and oriented. Appropriate behavior and judgment. Limitations: no limitations Course Vital Signs 07/02/19 07/02/19 17:32 19:31 Temperature 98.5 F Pulse Rate 71 88 Respiratory 18 18 Rate Blood Pressure 109/72 118/73 O2 Sat by Pulse 100 97 Oximetry Medical Decision Making - Medical Decision Making The patient was seen and examined. All diagnostics are reviewed. The computed tomography scan of the brain does not show any acute processes. She only requests Motrin 600 for pain and this is given. This is what she normally takes at home. She states that she cannot take any narcotics as they do not agree with her. An x-ray is taken of the left forearm and does not show any evidence of fracture. An x-ray was taken of the right foot. This shows some soft tissue swelling but no evidence of fracture. The computed tomography scan of the brain does show some old changes likely related to her old brain tumor but no acute rheumatic processes identified. She is placed in Mario wrap in remission. Return parameters are discussed. Safety precautions at home are discussed. Disposition Clinical Impression: Fall, Head injury, Contusion of forearm, left, Right foot sprain, Contusion of right foot Disposition: HOME SELF-CARE Condition: Good Instructions (If sedation given, give patient instructions): Fall Prevention (ED), Head Injury (ED), Foot Sprain (ED) Additional Instructions: Please use her Motrin if needed for pain. Is patient prescribed a controlled substance at d/c from ED?: No Referrals: Angel Bains MD [Primary Care Provider] - 1-2 days Time of Disposition: 19:45
--- NOTE | 2019-07-02 19:16 | CT ---
EXAMINATION TYPE: CT brain wo con DATE OF EXAM: 07/02/2019 COMPARISON: 11/16/2018 INDICATION: Fall, head injury. History of brain tumor. DLP: 1190.4 mGycm, Automated exposure control for dose reduction was used. CONTRAST: None CT of the brain is performed utilizing 3 mm thick sections through the posterior fossa and 3 mm thick sections through the remaining calvarium. Study is performed within 24 hours of arrival to the hosp ital. No abnormal hyperdensity is present to suggest an acute intracranial hemorrhage. No mass lesion is evident. No acute infarcts are evident. Periventricular white matter hypodensity is present to a mild degree. A subcortical infarct may be present within the left centrum semiovale. Other etiologies including me tastases are not excluded. This area appears unchanged from 11/16/2018 Ventricles and sulci are appropriate for the patient age. Paranasal sinuses and mastoid air cells within the [id number] are clear. IMPRESSIONS: 1. There may be a subcortical infarct within the left centrum semiovale. Other etiologies including metastatic lesion should be considered. There is a history of prior tumor and vasogenic edema should be considered. Recommend follow-up MRI with contrast for reevaluation of this region.
--- NOTE | 2019-07-02 19:20 | XR ---
EXAMINATION TYPE: XR foot complete RT DATE OF EXAM: 07/02/2019 COMPARISON: None HISTORY: Trauma right foot pain and bruising dorsal side of foot TECHNIQUE: Three-view right foot FINDINGS: No acute fractures are evident. Soft tissue swelling is present over the dorsum of the foot . Cuneiform metatarsal alignment appears normal. Small Achilles tendon calcaneal heel spur is present . IMPRESSION: 1. Soft tissue swelling distal dorsal foot.
--- NOTE | 2019-07-02 19:21 | XR ---
EXAMINATION TYPE: XR forearm LT DATE OF EXAM: 07/02/2019 COMPARISON: None HISTORY: Left arm pain, fall TECHNIQUE: 2 view left forearm FINDINGS: Radius aligns normally with the humerus. No acute fractures are evident. Soft tissues are n ormal. IMPRESSION: 1. Normal 2 view left forearm. 2. Follow-up exam can be performed 7-10 days from acute trauma for continued pain.
[2019-07-02 19:32] VITALS: BP 118/73; PULSE 88
== END 2019-07-02 19:53 | disposition home or self-care (01) ==
LOC: EC 16:50
DX: S93.601A Unspecified sprain of right foot, initial encounter (principal); S50.12XA Contusion of left forearm, initial encounter; S09.90XA Unspecified injury of head, initial encounter; F41.9 Anxiety disorder, unspecified; F32.9 Major depressive disorder, single episode, unspecified; G40.909 Epilepsy, unspecified, not intractable, without status epilepticus; M81.0 Age-related osteoporosis without current pathological fracture; Z79.890 Hormone replacement therapy; Z79.899 Other long term (current) drug therapy; Z88.8 Allergy status to other drugs, medicaments and biological substances; Z92.3 Personal history of irradiation; Z92.21 Personal history of antineoplastic chemotherapy; Z98.890 Other specified postprocedural states; Z85.841 Personal history of malignant neoplasm of brain; W10.9XXA Fall (on) (from) unspecified stairs and steps, initial encounter; Y93.89 Activity, other specified; Y92.009 Unspecified place in unspecified non-institutional (private) residence as the place of occurrence of the external cause
CPT/HCPCS: 70450; 99284

== ENCOUNTER → 2019-07-18 | Outpatient (CLI) | payer MEDICARE, BC ==
--- NOTE | 2019-07-18 10:47 | MR ---
EXAMINATION TYPE: MR brain wo/w con DATE OF EXAM: 07/18/2019 COMPARISON: Prior MR brain 12/04/2018 HISTORY: Secondary malignant neoplasm brain TECHNIQUE: Multiplanar, multisequence images of the brain and brainstem is performed without and with IV contras t, utilizing 5.5 mL intravenous Gadavist . FINDINGS: Diffusion weighted images demonstrate no evidence of a recent infarct or other diffusion ab normality. There is no extra-axial fluid collection or significant white matter signal abnormality. The ventricular system and cisternal spaces are normal in size and appearance. The brain volume is age appropriate, brain signal shows a stable appearance. Scoliosis is present towards the convexity, left centrum semiovale ovale as on prior exam, periventricular hyperintensity and inversion recovery T2-weighted sequences is again noted, hyperintensity at the level of the periventricular white matter the level of the posterior horn of the left lateral ventricle has improved in the interval. Cranioto my defect again noted. There is some artifact noted at the level of the external auditory canal on th e left. Midline structures demonstrate normal morphology. The craniocervical junction appears within normal limits. Post contrast images demonstrate no abnormal enhancement. The dural venous sinuses appear pa tent. The visualized sinuses are clear and the globes are intact. IMPRESSION: No evident recurrence. Postop changes. There is some improvement in gliosis as described.
== END | disposition home or self-care (01) ==
LOC: RADMRIMAIN 09:15
PROVIDERS: ATTEND Physician Assistant
DX: G93.89 Other specified disorders of brain (principal); C79.31 Secondary malignant neoplasm of brain; Z98.890 Other specified postprocedural states
CPT/HCPCS: 70553; A9585

== ENCOUNTER → 2019-08-16 | Outpatient (CLI) | payer MEDICARE, BC ==
--- NOTE | 2019-08-16 10:18 | FL ---
EXAMINATION TYPE: FL UGI w esophagus DATE OF EXAM: 08/16/2019 COMPARISON: NONE HISTORY: Acute on chronic gastritis. Worsening in severity for one month. TECHNIQUE: A double contrast UGI study is performed. 2.26 minutes of fluoroscopy time was utilized w ith 16 images saved. FINDINGS: Speech Language Pathologist Prn image of the abdomen shows no gross abnormality. The esophagus shows normal motility and emptying into the stomach. No evidence of hiatal hernia or s tricture noted. The stomach shows a filling defect appearing as edema in the posterior gastric antrum this is seen on image 47, 48, and 49 eventually filling are becoming obscured with contrast.. In gastric rugal folds are seen throughout the most prominent in the gastric antrum such as on image 56. No significant gastroesophageal reflux was seen during real time performance of this study. The duodenal bulb, sweep, and proximal small bowel loops are unremarkable. IMPRESSION: 1. Gastric antrum filling defect likely representing an ulcer although small mass is possible. Direct visualization with endoscopy is recommended. 2. Gastric rugal fold thickening, most commonly related to gastritis, is most pronounced in the gastr ic antrum.
== END | disposition home or self-care (01) ==
LOC: RADUSWWP 08-03 10:59
PROVIDERS: ATTEND Family Medicine
DX: K92.89 Other specified diseases of the digestive system (principal)
CPT/HCPCS: 74240

== ENCOUNTER 2019-10-20 23:15 | Observation (INO) | payer MEDICARE, BC ==
--- NOTE | 2019-10-21 00:32 | ED ---
General Adult HPI - General Chief complaint: Dizziness Stated complaint: Anxiety Time Seen by Provider: 10/20/19 23:18 Source: patient, EMS Mode of arrival: EMS Limitations: no limitations - History of Present Illness Initial comments: Dictation was produced using [employer] dictation software. please excuse any grammatical, word or spelling errors. Chief Complaint: 54-year-old female with history of glioblastoma multiformity, seizure disorder presents with episode of acute dyspnea, History of Present Illness: She is 54-year-old female she was getting ready for bed with her when she all of a sudden felt to the ground. She was having episode of spasm that she states occurred in her abdomen. Episode was witnessed by . states that he saw her she looked like she was having tonic-clonic activity. She that lasted for about 5 minutes when she all of a sudden stopped. She was confused for approximately 5-10 minutes after. His history of glioblastoma multiforme diagnosed in 2002. She apparently sees specialist at [facility]. She has not had any issues with brain tumor since then. Patient reports that she has not had a seizure in over a year. Patient reports that she does have some mild cramping in her upper abdominal area. She otherwise feels well. The ROS documented in this emergency department record has been reviewed and confirmed by me. Those systems with pertinent positive or negative responses have been documented in the HPI. All other systems are other negative and/or noncontributory. PHYSICAL EXAM: General Impression: Alert and oriented x3, not in acute distress HEENT: Normocephalic atraumatic, extra-ocular movements intact, pupils equal and reactive to light bilaterally, mucous membranes moist. Cardiovascular: Heart regular rate and rhythm, S1&S2 audible, no murmurs, rubs or gallops Chest: Lungs clear to auscultation bilaterally, no rhonchi, no wheeze, no rales Abdomen: Bowel sounds present, abdomen soft, non-tender, non-distended, no organomegaly Musculoskeletal: Pulses present and equal in all extremities, no peripheral edema Motor: no focal deficits noted Neurological: CN II-XII grossly intact, no focal motor or sensory deficits noted Skin: Intact with no visualized rashes Psych: Normal affect and mood ED course: 54-year-old female presents with EMS for episode of spasms and tonic- clonic activity. Vital signs upon arrival are within acceptable limits. Given that there was witnessed post ictal state is concerned that patient suffered from a seizure. Patient is generally well-appearing. Physical examination is benign. Patient does not appear to be in any significant distress. She does still complain of some mild cramping to her epigastric area however is tender to palpation. Laboratory evaluation obtained. Leukopenia 3.2. Coag panel unremarkable. Metabolic panel shows potassium 2.9, rest of metabolic panel is unremarkable. Chest x-ray and computed tomography scan of the head and C-spine was reviewed by myself showing no significant acute processes. Pending radiology read. Disposition options were discussed with patient and patient's . This point is unclear exactly what happened. At the time of differential there is concern that perhaps patient suffered a seizure. Patient's hypokalemic. She is ordered for IV and by mouth potassium replacement. We will have patient admitted observation for neurology consultation for syncope versus seizure and potassium replacement. EKG interpretation: Ventricular rate 72, normal sinus rhythm,. Interval 160, QS 92, QTC 479. No NM prolongation, no QTC prolongation, no ST or T-wave changes noted. Overall, this EKG is unremarkable - Related Data Home Medications Medication Instructions Recorded Confirmed Citalopram Hydrobromide [CeleXA] 40 mg PO HS 06/12/14 07/02/19 Baclofen [Lioresal] 20 mg PO HS 10/11/16 07/02/19 Denosumab [Prolia] 60 mg SQ Q168D 10/11/16 07/02/19 clonazePAM [KlonoPIN] 0.5 mg PO HS 10/11/16 07/02/19 Levothyroxine Sodium [Synthroid] 50 mcg PO DAILY 11/16/18 07/02/19 Amoxicillin 500 mg PO Q8H 07/02/19 07/02/19 Cyclobenzaprine [Flexeril] 10 mg PO HS 07/02/19 07/02/19 Temazepam [Restoril] 15 mg PO HS PRN 07/02/19 07/02/19 cycloSPORINE 0.05% OPHTH SOLN 1 applicator BOTH EYES BID 07/02/19 07/02/19 [Restasis] Allergies Allergy/AdvReac Type Severity Reaction Status Date / Time lamotrigine [From Lamictal] Allergy Rash/Hives Verified 02/08/20 23:43 phenytoin sodium Allergy Anaphylaxis Verified 10/20/19 23:43 [From Dilantin] phenytoin sodium extended Allergy Anaphylaxis Verified 10/20/19 23:43 [From Dilantin] Review of Systems ROS Statement: Those systems with pertinent positive or pertinent negative responses have been documented in the HPI. ROS Other: All systems not noted in ROS Statement are negative. Past Medical History Past Medical History: Cancer, Seizure Disorder Additional Past Medical History / Comment(s): Brain Tumor - 2002. Chemotherapy and Radiation for brain tumor. Osteoporosis History of Any Multi-Drug Resistant Organisms: None Reported Past Surgical History: Cholecystectomy, Hysterectomy Additional Past Surgical History / Comment(s): Brain surgery for Cancer; Colonoscopy Past Anesthesia/Blood Transfusion Reactions: No Reported Reaction Past Psychological History: Anxiety, Depression Smoking Status: Never smoker Past Alcohol Use History: None Reported Past Drug Use History: None Reported - Past Family History Father Family Medical History: Cancer Additional Family Medical History / Comment(s): Brain tumor General Exam Limitations: no limitations Course Vital Signs 10/20/19 23:40 Temperature 98.1 F Pulse Rate 74 Respiratory 18 Rate Blood Pressure 101/72 O2 Sat by Pulse 100 Oximetry Medical Decision Making - Lab Data Result diagrams: 10/21/19 00:25 10/21/19 00:25 Lab Results 10/21/19 10/21/19 10/21/19 Range/Units 00:25 00:25 00:25 WBC 3.2 L (3.8-10.6) k/uL RBC 3.73 L (3.80-5.40) m/uL Hgb 11.1 L (11.4-16.0) gm/dL Hct 34.4 (34.0-46.0) % MCV 92.2 (80.0-100.0) fL MCH 29.9 (25.0-35.0) pg MCHC 32.4 (31.0-37.0) g/dL RDW 12.9 (11.5-15.5) % Plt Count 195 (150-450) k/uL Neutrophils % 62 % Lymphocytes % 20 % Monocytes % 9 % Eosinophils % 6 % Basophils % 1 % Neutrophils # 2.0 (1.3-7.7) k/uL Lymphocytes # 0.6 L (1.0-4.8) k/uL Monocytes # 0.3 (0-1.0) k/uL Eosinophils # 0.2 (0-0.7) k/uL Basophils # 0.0 (0-0.2) k/uL PT (9.0-12.0) sec INR (<1.2) APTT (22.0-30.0) sec Sodium 137 (137-145) mmol/L Potassium 2.9 L (3.5-5.1) mmol/L Chloride 105 (98-107) mmol/L Carbon Dioxide 25 (22-30) mmol/L Anion Gap 7 mmol/L BUN 22 H (7-17) mg/dL Creatinine 0.90 (0.52-1.04) mg/dL Est GFR (CKD-EPI)AfAm 83 (>60 ml/min/1.73 sqM) Est GFR (CKD-EPI)NonAf 72 (>60 ml/min/1.73 sqM) Glucose 125 H (74-99) mg/dL Plasma Lactic Acid Bogdan 1.6 (0.7-2.0) mmol/L Calcium 8.3 L (8.4-10.2) mg/dL Magnesium 2.2 (1.6-2.3) mg/dL 10/21/19 Range/Units 00:25 WBC (3.8-10.6) k/uL RBC (3.80-5.40) m/uL Hgb (11.4-16.0) gm/dL Hct (34.0-46.0) % MCV (80.0-100.0) fL MCH (25.0-35.0) pg MCHC (31.0-37.0) g/dL RDW (11.5-15.5) % Plt Count (150-450) k/uL Neutrophils % % Lymphocytes % % Monocytes % % Eosinophils % % Basophils % % Neutrophils # (1.3-7.7) k/uL Lymphocytes # (1.0-4.8) k/uL Monocytes # (0-1.0) k/uL Eosinophils # (0-0.7) k/uL Basophils # (0-0.2) k/uL PT 9.8 (9.0-12.0) sec INR 0.9 (<1.2) APTT 19.7 L (22.0-30.0) sec Sodium (137-145) mmol/L Potassium (3.5-5.1) mmol/L Chloride (98-107) mmol/L Carbon Dioxide (22-30) mmol/L Anion Gap mmol/L BUN (7-17) mg/dL Creatinine (0.52-1.04) mg/dL Est GFR (CKD-EPI)AfAm (>60 ml/min/1.73 sqM) Est GFR (CKD-EPI)NonAf (>60 ml/min/1.73 sqM) Glucose (74-99) mg/dL Plasma Lactic Acid Bogdan (0.7-2.0) mmol/L Calcium (8.4-10.2) mg/dL Magnesium (1.6-2.3) mg/dL Disposition Clinical Impression: Hypokalemia, Syncope Disposition: ADMITTED IP TO THIS HOSP Condition: Fair Referrals: Angel Bains MD [Primary Care Provider] - 1-2 days Decision Time: 01:37
[2019-10-21 00:41] LABS: Basophils % (A) 1 %; Eosinophils # (A) 0.2 k/uL (0-0.7); Eosinophils % (A) 6 %; HCT 34.4 % (34.0-46.0); HGB 11.1 gm/dL (11.4-16.0); Lymphocytes # (A) 0.6 k/uL (1.0-4.8); Lymphocytes % (A) 20 %; MCH 29.9 pg (25.0-35.0); MCHC 32.4 g/dL (31.0-37.0); MCV 92.2 fL (80.0-100.0); Mean Platelet Volume 6.8; Monocytes # (A) 0.3 k/uL (0-1.0); Monocytes % (A) 9 %; Neutrophils % (A) 62 %; Platelet Count 195 k/uL (150-450); RBC 3.73 m/uL (3.80-5.40); RDW 12.9 % (11.5-15.5); WBC 3.2 k/uL (3.8-10.6)
[2019-10-21 00:54] LABS: INR 0.9 (<1.2); Prothrombin Time 9.8 sec (9.0-12.0)
[2019-10-21 00:55] LABS: Calcium 8.3 mg/dL (8.4-10.2); Magnesium 2.2 mg/dL (1.6-2.3); Potassium 2.9 mmol/L (3.5-5.1)
[2019-10-21] MEDS ORDERED: POTASSIUM CHLORIDE ER 20 MEQ TAB.ER PO STA (01:07)
[2019-10-21 01:11] LABS: Partial Thromboplastin Time 19.7 sec (22.0-30.0)
[2019-10-21] MEDS ORDERED: ONDANSETRON 4 MG/2 ML VIAL IVP PRN (01:38)
[2019-10-21] MEDS ORDERED: NALOXONE 0.4 MG/ML 1 ML VIAL IV PRN (01:38)
[2019-10-21] MEDS ORDERED: LORazepam 2 MG/ML INJ IV PRN (01:38)
--- NOTE | 2019-10-21 01:50 | CT ---
EXAMINATION TYPE: CT brain allieine wo con DATE OF EXAM: 10/21/2019 COMPARISON: CT brain 07/02/2019 HISTORY: Patient presents with syncope. H/x of brain tumor 17 years ago. Patient refused to remove ea ring. CT DLP: 1240.3 mGycm Automated exposure control for dose reduction was used. Multiple axial sections were obtained of the brain without contrast. Multiple axial sections were obt ained from the skull base to T1 vertebra without contrast. FINDINGS: Cervical vertebra show some straightening. There is mild disc space narrowing at C5-6 and C6-7. There is spurring of the endplates. Posterior elements are intact. Facet joints are intact. There is mild hypertrophic facet arthropathy. The skull base is intact. Ventricles have normal size. There is no mass effect nor midline shift. There is no sign of intracran ial hemorrhage. There is old left frontal craniotomy defect. There is some encephalomalacia in the le ft parietal lobe murphy and white matter. IMPRESSION: There is some encephalomalacia left parietal lobe consistent with surgery. This is unchanged compared to old exam. No acute intracranial abnormality. Minor degenerative disc changes in the lower cervical spine. No fracture.
--- NOTE | 2019-10-21 01:51 | XR ---
EXAMINATION TYPE: XR chest 2V DATE OF EXAM: 10/21/2019 COMPARISON: 11/16/2018 HISTORY: Short of breath TECHNIQUE: FINDINGS: Heart and mediastinum are normal. Lungs are clear. Diaphragm is normal. There are chest eva ds. Bony thorax appears normal. IMPRESSION: Normal chest. No change.
[2019-10-21] MEDS: POTASSIUM CHLORIDE 10 MEQ in WATER FOR INJECTION 1 100ML.BAG IVPB SCH ×4 (02:45→10:09)
[2019-10-21] MEDS: SODIUM CHLORIDE 0.9% 1,000 ML IV SCH ×2 (02:45→20:58)
[2019-10-21 11:39] LABS: Calcium 8.7 mg/dL (8.4-10.2); Potassium 4.6 mmol/L (3.5-5.1)
--- NOTE | 2019-10-21 14:02 | P.HPIM ---
History of Present Illness H&P Date: 10/21/19 Chief Complaint: Syncope versus seizure 54-year-old female she was getting ready for bed with her when she all of a sudden felt to the ground. She was having episode of spasm that she states occurred in her abdomen. Episode was witnessed by . states that he saw her she looked like she was having tonic-clonic activity. She that lasted for about 5 minutes when she all of a sudden stopped. She was confused for approximately 5-10 minutes after. His history of glioblastoma multiforme diagnosed in 2002. She apparently sees specialist at [facility]. She has not had any issues with brain tumor since then. Patient reports that she has not had a seizure in over a year. Patient reports that she does have some mild cramping in her upper abdominal area. She otherwise feels well. Workup in ED with blood work shows leukopenia with WBC of 3.2, potassium of 2.9, patient had chest x-ray and CT of head and cervical spine done in ED which did not show any acute process; patient is admitted to the hospital for further neurological evaluation for syncope versus seizures Review of Systems REVIEW OF SYSTEMS: CONSTITUTIONAL: No fever, no malaise, no fatigue. HEENT: No recent visual problems or hearing problems. Denied any sore throat. CARDIOVASCULAR: No chest pain, orthopnea, PND, no palpitations, no syncope. PULMONARY: No shortness of breath, no cough, no hemoptysis. GASTROINTESTINAL: No diarrhea, no nausea, no vomiting, no abdominal pain. NEUROLOGICAL: No headaches, no weakness, no numbness. HEMATOLOGICAL: Denies any bleeding or petechiae. GENITOURINARY: Denies any burning micturition, frequency, or urgency. MUSCULOSKELETAL/RHEUMATOLOGICAL: Denies any joint pain, swelling, or any muscle pain. ENDOCRINE: Denies any polyuria or polydipsia. The rest of the 14-point review of systems is negative. Past Medical History Past Medical History: Cancer, Seizure Disorder Additional Past Medical History / Comment(s): Brain Tumor - 2002. Chemotherapy and Radiation for brain tumor. Osteoporosis History of Any Multi-Drug Resistant Organisms: None Reported Past Surgical History: Cholecystectomy, Hysterectomy Additional Past Surgical History / Comment(s): Brain surgery for Cancer; Colonoscopy Past Anesthesia/Blood Transfusion Reactions: No Reported Reaction Past Psychological History: No Psychological Hx Reported Smoking Status: Never smoker Past Alcohol Use History: None Reported Past Drug Use History: None Reported - Past Family History Father Family Medical History: Cancer Additional Family Medical History / Comment(s): Brain tumor Medications and Allergies Home Medications Medication Instructions Recorded Confirmed Type Citalopram Hydrobromide [CeleXA] 40 mg PO HS 06/12/14 10/21/19 History clonazePAM [KlonoPIN] 0.5 mg PO HS 10/11/16 10/21/19 History Levothyroxine Sodium [Synthroid] 50 mcg PO DAILY 11/16/18 10/21/19 History Cyclobenzaprine [Flexeril] 10 mg PO HS 07/02/19 10/21/19 History cycloSPORINE 0.05% OPHTH SOLN 1 applicator BOTH EYES BID 07/02/19 10/21/19 History [Restasis] Amitriptyline HCl 30 mg PO HS 10/21/19 10/21/19 History Amoxicillin 875 mg PO Q12HR 10/21/19 10/21/19 History Lidocaine Viscous 2% [Xylocaine 10 ml MUCOUS MEM Q4H PRN 10/21/19 10/21/19 History Viscous] Pantoprazole [Protonix] 40 mg PO BID 10/21/19 10/21/19 History Allergies Allergy/AdvReac Type Severity Reaction Status Date / Time lamotrigine [From Lamictal] Allergy Rash/Hives Verified 10/21/19 07:50 phenytoin sodium Allergy Anaphylaxis Verified 10/21/19 07:50 [From Dilantin] phenytoin sodium extended Allergy Anaphylaxis Verified 10/21/19 07:50 [From Dilantin] Physical Exam Vitals: Vital Signs Temp Pulse Pulse Resp BP BP Pulse Ox 10/21/19 08:00 68 14 10/21/19 07:45 97.6 F 68 14 121/77 98 10/21/19 06:00 66 18 93/73 96 10/21/19 05:00 69 16 104/72 96 10/21/19 02:00 71 15 101/73 96 10/21/19 01:30 77 18 98/64 96 10/21/19 00:30 70 16 103/65 97 10/20/19 23:40 98.1 F 74 18 101/72 100 Intake and Output 10/20/19 10/21/19 10/21/19 22:59 06:59 14:59 Other: Voiding Method Toilet Weight 54.431 kg 54.431 kg - Constitutional General appearance: Present: average body habitus, cooperative, no acute distress - EENT Eyes: Present: anicteric sclerae, EOMI, PERRLA, normal appearance ENT: Present: hearing grossly normal, normal oropharynx Ears: bilateral: normal - Neck Neck: Present: normal ROM. Absent: lymphadenopathy, rigidity, thyromegaly Carotids: negative: bruit present Thyroid: bilateral: normal size, negative: enlarged, nodule - Respiratory Respiratory: bilateral: CTA, negative: rales, rhonchi, wheezing - Cardiovascular Rhythm: regular Heart sounds: normal: S1, S2 Abnormal Heart Sounds: Absent: systolic murmur, diastolic murmur - Gastrointestinal General gastrointestinal: Present: normal bowel sounds, soft. Absent: distended, organomegaly, tenderness - Genitourinary Genitourinary Comment(s): deferred - Integumentary Integumentary: Present: normal turgor. Absent: jaundiced, rash, ulcer - Neurologic Neurologic: Present: CNII-XII intact. Absent: focal deficits - Musculoskeletal Musculoskeletal: Present: gait normal, strength equal bilaterally - Psychiatric Psychiatric: Present: A&O x's 3, appropriate affect, intact judgment & insight Results CBC & Chem 7: 10/21/19 00:25 10/21/19 11:09 Labs: Abnormal Lab Results - Last 24 Hours (Table) 10/21/19 10/21/19 10/21/19 Range/Units 00:25 00:25 00:25 WBC 3.2 L (3.8-10.6) k/uL RBC 3.73 L (3.80-5.40) m/uL Hgb 11.1 L (11.4-16.0) gm/dL Lymphocytes # 0.6 L (1.0-4.8) k/uL APTT 19.7 L (22.0-30.0) sec Potassium 2.9 L (3.5-5.1) mmol/L BUN 22 H (7-17) mg/dL Glucose 125 H (74-99) mg/dL Calcium 8.3 L (8.4-10.2) mg/dL Thrombosis Risk Factor Assmnt - Choose All That Apply Any of the Below Risk Factors Present?: Yes Each Factor Represents 1 point: Age 41-60 years Other Risk Factors: No Other congenital or acquired thrombophilia - If yes, enter type in comment: No Thrombosis Risk Factor Assessment Total Risk Factor Score: 1 Thrombosis Risk Factor Assessment Level: Low Risk Assessment and Plan Assessment: 1. Acute syncope; possible seizures - Patient does have history of seizure disorder but does not seem to be on any antiseizure medications at this time; we will admit to telemetry; seizure precautions; consult neurology for further recommendations 2. Marked hypokalemia; potassium levels were supplemented in ED; repeat potassium level is at 4.6; we'll continue to monitor electrolytes 3. Hypothyroidism; continue with levothyroxine 50 MCG daily 4. Anxiety/depression; patient takes Celexa, clonazepam and amitriptyline 5. DVT prophylaxis; SCDs CODE STATUS; full code
[2019-10-21] MEDS ORDERED: BENZOCAINE/MENTHOL LOZENG 1 EACH LOZENGE MUCOUS MEM PRN (14:08)
--- NOTE | 2019-10-21 14:29 | P.CNNES ---
History of Present Illness Consult date: 10/21/19 Reason for Consult: seizure versus syncope History of Present Illness: The patient is a 54-year-old female who was seen in neurologic c onsultation on October 21, 2019, via teleneurology. The patient reports that she and her were on their way to bed yesterday evening. She got up to take her pills and the 2 of them were joking around. She had sudden onset of feeling hot and sweaty and lightheaded. She began to fall to the floor however her caught her. She says she had sudden onset of pain. It was not pain in her chest but in her upper abdomen. She said she was unable to breathe. She was repositioning herself and rolling on the floor on attempting to breathe. She said she had her arms flexed at the elbows and her fists clenched. According to her , the patient was very diaphoretic and pale. At one point he says that she was laying on her back with her eyes open however was not responding. The patient describes the pain as a severe pressure sensation. The patient has a history of seizures however, per the patient and her , his episode was not like her seizures. Patient reports that this episode lasted for approximately 10-15 minutes. EMS was called. Patient reports that the fire department arrived first and felt that perhaps the patient was having a panic attack. When the paramedics arrived, they were able to get the patient to slow her breathing down. She continued to have severe upper abdominal pain. Today, the patient reports continued lower chest and upper abdominal pain. She says it hurts to take a deep breath. She also feels very tired. In addition, patient reports headache. She denies paresthesias. She feels as if she has slightly less strength in her extremities. She denies visual changes. The patient has a history of glioblastoma multiform, diagnosed approximately 17 years ago. Patient underwent surgery, radiation and chemotherapy. She was also involved in a clinical trial in which she took tamoxifen 180 mg daily for one year. She follows with a doctor out of [facility] for her tumor. Her disease reportedly stable. In regards to her seizures, the patient follows with a local neurologist. Review of Systems See history of chief complaint Past Medical History Past Medical History: Cancer, Seizure Disorder Additional Past Medical History / Comment(s): Brain Tumor - 2002. Chemotherapy and Radiation for brain tumor. Osteoporosis History of Any Multi-Drug Resistant Organisms: None Reported Past Surgical History: Cholecystectomy, Hysterectomy Additional Past Surgical History / Comment(s): Brain surgery for Cancer; Colonoscopy Past Anesthesia/Blood Transfusion Reactions: No Reported Reaction Past Psychological History: No Psychological Hx Reported Smoking Status: Never smoker Past Alcohol Use History: None Reported Past Drug Use History: None Reported - Past Family History Father Family Medical History: Cancer Additional Family Medical History / Comment(s): Brain tumor Medications and Allergies Home Medications Medication Instructions Recorded Confirmed Type Citalopram Hydrobromide [CeleXA] 40 mg PO HS 06/12/14 10/21/19 History clonazePAM [KlonoPIN] 0.5 mg PO HS 10/11/16 10/21/19 History Levothyroxine Sodium [Synthroid] 50 mcg PO DAILY 11/16/18 10/21/19 History Cyclobenzaprine [Flexeril] 10 mg PO HS 07/02/19 10/21/19 History cycloSPORINE 0.05% OPHTH SOLN 1 applicator BOTH EYES BID 07/02/19 10/21/19 History [Restasis] Amitriptyline HCl 30 mg PO HS 10/21/19 10/21/19 History Amoxicillin 875 mg PO Q12HR 10/21/19 10/21/19 History Lidocaine Viscous 2% [Xylocaine 10 ml MUCOUS MEM Q4H PRN 10/21/19 10/21/19 History Viscous] Pantoprazole [Protonix] 40 mg PO BID 10/21/19 10/21/19 History Allergies Allergy/AdvReac Type Severity Reaction Status Date / Time lamotrigine [From Lamictal] Allergy Rash/Hives Verified 10/21/19 07:50 phenytoin sodium Allergy Anaphylaxis Verified 10/21/19 07:50 [From Dilantin] phenytoin sodium extended Allergy Anaphylaxis Verified 10/21/19 07:50 [From Dilantin] Physical Examination - Vital Signs Vital Signs: Vital Signs Temp Pulse Pulse Resp BP BP Pulse Ox 10/21/19 12:00 76 14 10/21/19 11:46 97.7 F 76 14 100/62 98 10/21/19 08:00 68 14 10/21/19 07:45 97.6 F 68 14 121/77 98 10/21/19 06:00 66 18 93/73 96 10/21/19 05:00 69 16 104/72 96 10/21/19 02:00 71 15 101/73 96 10/21/19 01:30 77 18 98/64 96 10/21/19 00:30 70 16 103/65 97 10/20/19 23:40 98.1 F 74 18 101/72 100 Intake and Output 10/20/19 10/21/19 10/21/19 22:59 06:59 14:59 Other: Voiding Method Toilet # Voids 2 Weight 54.431 kg 54.431 kg Gen.: Patient is well-nourished, well-developed and in no acute distress. She does complain of a dry mouth. HEENT: Head is atraumatic, normocephalic. Fundus not visualized. There is no scleral icterus. Mucous membranes are slightly dry. Heart: Regular rate and rhythm Lungs: Clear to auscultation Extremities: Without edema Neurological examination Mental status: Patient is awake, alert and oriented 3. She has mild occasional word finding difficulties. Cranial nerves: Pupils are equal, round and reactive to light. Visual aldridge are full to confrontation. Extraocular muscles are intact. Facial sensations intact. There is no facial asymmetry. Hearing is grossly intact. Uvula and palate are midline. Shoulder shrug is symmetric. Tongue protrudes midline. There is no laceration. Motor: Strength is 5/5 throughout Sensation: Grossly intact to light touch Coordination: Finger to nose testing is intact. There is no tremor or ataxia Deep tendon reflexes: 2+/4+ in the upper extremities. 3+/4+ at the knees. Gait: Not assessed Results - Laboratory Findings CBC and BMP: 10/21/19 00:25 10/21/19 11:09 Abnormal Lab Findings: Abnormal Labs 10/21/19 10/21/19 10/21/19 00:25 00:25 00:25 WBC 3.2 L RBC 3.73 L Hgb 11.1 L Lymphocytes # 0.6 L APTT 19.7 L Sodium Potassium 2.9 L BUN 22 H Glucose 125 H Calcium 8.3 L 10/21/19 11:09 WBC RBC Hgb Lymphocytes # APTT Sodium 136 L Potassium BUN 18 H Glucose 63 L Calcium Assessment and Plan Assessment: Impressions: 1. Reported lower chest pressure, diaphoresis, dizziness, paleness, shortness of breath and loss of consciousness-must consider cardiac origin. Doubt seizure 2. Hypokalemia 3. History of seizure disorder 4. 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 Will check cardiac enzymes 2. Continue current medications 3. No need for EEG at this point 4. Advise the patient and her that she should make a follow-up appointment with Dr. Liu, her neurologist. Time with Patient: Greater than 30 (spent 45 minutes with patient)
[2019-10-21 15:09] LABS: Creatine Kinase MB 0.7 ng/mL (0.0-2.4); Troponin I <0.012 ng/mL (0.000-0.034)
[2019-10-21] MEDS: PANTOPRAZOLE 40 MG TABLET PO SCH (16:12)
[2019-10-21] MEDS: cycloSPORINE 0.05% OPHTH 0.4 ML DROPERETTE BOTH EYES SCH (20:56)
[2019-10-21] MEDS ORDERED: clonazePAM 0.5 MG TAB PO SCH (21:00)
[2019-10-21] MEDS ORDERED: AMITRIPTYLINE HCL 10 MG TAB PO SCH (21:00)
[2019-10-21] MEDS ORDERED: CITALOPRAM HYDROBROMIDE 20 MG TAB PO SCH (21:00)
[2019-10-21] MEDS ORDERED: CYCLOBENZAPRINE 10 MG TAB PO SCH (21:00)
[2019-10-22 04:23] VITALS: RESP 18
[2019-10-22] MEDS ORDERED: LEVOTHYROXINE 50 MCG TAB PO SCH (06:30)
[2019-10-22 07:51] LABS: Calcium 9.1 mg/dL (8.4-10.2); Potassium 4.9 mmol/L (3.5-5.1)
[2019-10-22 08:20] LABS: Basophils # (A) 0.1 k/uL (0-0.2); Basophils % (A) 2 %; Eosinophils # (A) 0.3 k/uL (0-0.7); Eosinophils % (A) 7 %; HCT 37.2 % (34.0-46.0); HGB 11.6 gm/dL (11.4-16.0); Lymphocytes # (A) 1.3 k/uL (1.0-4.8); Lymphocytes % (A) 35 %; MCHC 31.1 g/dL (31.0-37.0); MCV 93.3 fL (80.0-100.0); Mean Platelet Volume 7.3; Monocytes # (A) 0.3 k/uL (0-1.0); Monocytes % (A) 8 %; Neutrophils # (A) 1.6 k/uL (1.3-7.7); Neutrophils % (A) 44 %; Platelet Count 214 k/uL (150-450); RBC 3.98 m/uL (3.80-5.40); RDW 12.8 % (11.5-15.5); WBC 3.7 k/uL (3.8-10.6)
[2019-10-22] MEDS: PANTOPRAZOLE 40 MG TABLET PO SCH ×2 (08:23→17:54)
[2019-10-22] MEDS: cycloSPORINE 0.05% OPHTH 0.4 ML DROPERETTE BOTH EYES SCH (08:23)
--- NOTE | 2019-10-22 11:54 | P.PN ---
Subjective Patient resting in bed without complaint denies headache or chest pain at this time. Patient had teleconference with neurology they had of low suspicion for seizure. Patient on Zonegran 100 mg daily. Awaiting consultation with cardiology echo done but not reported. 2 week event monitor ordered Objective - Vital Signs Vital signs: Vital Signs Temp 98.1 F 10/22/19 11:32 Pulse 75 10/22/19 11:32 Resp 18 10/22/19 11:32 BP 107/66 10/22/19 11:32 Pulse Ox 98 10/22/19 11:32 Intake & Output 10/21/19 10/22/19 10/22/19 18:59 06:59 18:59 Intake Total 480 Balance 480 Weight 54.431 kg Intake: Oral 480 Other: Voiding Method Toilet Toilet Toilet # Voids 2 1 - Constitutional General appearance: Present: mild distress - EENT Eyes: Present: PERRLA Ears: bilateral: normal - Neck Neck: Present: normal ROM - Respiratory Respiratory: bilateral: CTA - Cardiovascular Rhythm: regular - Gastrointestinal General gastrointestinal: Present: soft - Neurologic Neurologic: Present: CNII-XII intact - Psychiatric Psychiatric: Present: A&O x's 3, appropriate affect, intact judgment & insight - Labs CBC & Chem 7: 10/22/19 07:08 10/22/19 07:08 Labs: Abnormal Lab Results - Last 24 Hours (Table) 10/22/19 Range/Units 07:08 WBC 3.7 L (3.8-10.6) k/uL - Imaging and Cardiology Chest x-ray: report reviewed CT Scan - head: report reviewed Assessment and Plan Plan: Assessment Syncope with chest pain The history of seizure disorder on Zonegran 100 mg Hypokalemia corrected Hypothyroidism Anxiety/depression History of a glioblastoma treated at [facility] Plan Cleared by neurology awaiting consultation with cardiology Hopeful discharge
[2019-10-22 16:32] VITALS: BP 133/72; PULSE 70; TEMP 98.2
--- NOTE | 2019-10-22 16:52 | P.DS ---
Providers Date of admission: 10/21/19 01:39 Expected date of discharge: 10/22/19 Attending physician: Angel Bains Consults: 10/21/19 01:38 Consult Physician Routine Consulting Provider: Kristin Irvin Consult Reason/Comments: syncope vs. seizure Do you want consulting provider notified?: Yes 10/21/19 14:26 Consult Physician Routine Consulting Provider: Mike Loera Consult Reason/Comments: Syncope/chest pressure Do you want consulting provider notified?: Yes Primary care physician: Angel Bains Hospital Course: 54-year-old patient is brought to the emergency room after a syncopal episode. Patient is a history of seizures. Patient stated it wasn't your typical seizure. Patient had a cyber evaluation with neurology and cleared. Patient does have a history of the glioblastoma treated at [facility]. Patient was evaluated by cardiology and cleared for discharge. Patient is to have a 14 day event monitor. Assessment syncope seizure history history of the glioblastoma treated at [facility] hypokalemia corrected hypothyroidism anxiety/depression Plan continue home meds including Zonegran hundred milligrams follow up with Dr. Liu follow up with cardiology and family physician Angel Bains Patient Condition at Discharge: Fair Plan - Discharge Summary Discharge Rx Participant: No New Discharge Prescriptions: New Benzocaine/Menthol Lozeng [Cepacol lozenge] 1 each MUCOUS MEM Q4HR PRN lozenge PRN Reason: Sore Throat Continue Citalopram Hydrobromide [CeleXA] 40 mg PO HS clonazePAM [KlonoPIN] 0.5 mg PO HS Levothyroxine Sodium [Synthroid] 50 mcg PO DAILY cycloSPORINE 0.05% OPHTH SOLN [Restasis] 1 applicator BOTH EYES BID Cyclobenzaprine [Flexeril] 10 mg PO HS Pantoprazole [Protonix] 40 mg PO BID Amoxicillin 875 mg PO Q12HR Amitriptyline HCl 30 mg PO HS Lidocaine Viscous 2% [Xylocaine Viscous] 10 ml MUCOUS MEM Q4H PRN PRN Reason: Pain Discharge Medication List Citalopram Hydrobromide [CeleXA] 40 mg PO HS 06/12/14 [History] clonazePAM [KlonoPIN] 0.5 mg PO HS 10/11/16 [History] Levothyroxine Sodium [Synthroid] 50 mcg PO DAILY 11/16/18 [History] Cyclobenzaprine [Flexeril] 10 mg PO HS 07/02/19 [History] cycloSPORINE 0.05% OPHTH SOLN [Restasis] 1 applicator BOTH EYES BID 07/02/19 [History] Amitriptyline HCl 30 mg PO HS 10/21/19 [History] Amoxicillin 875 mg PO Q12HR 10/21/19 [History] Lidocaine Viscous 2% [Xylocaine Viscous] 10 ml MUCOUS MEM Q4H PRN 10/21/19 [History] Pantoprazole [Protonix] 40 mg PO BID 10/21/19 [History] Benzocaine/Menthol Lozeng [Cepacol lozenge] 1 each MUCOUS MEM Q4HR PRN lozenge 10/22/19 [Rx] Follow up Appointment(s)/Referral(s): Angel Bains MD [Primary Care Provider] - 1-2 days Alli Liu DO [STAFF PHYSICIAN] - 1 Week Mike Loera MD [STAFF PHYSICIAN] - 11/01/19 9:45 am
--- NOTE | 2019-10-22 18:52 | ECHOF ---
Referral Reason:syncope MEASUREMENTS -------- HEIGHT: 165.1 cm WEIGHT: 54.4 kg BP: 138/76 RVIDd: 2.5 cm (< 3.3) IVSd: 1.1 cm (0.6 - 1.1) LVIDd: 3.2 cm (3.9 - 5.3) LVPWd: 1.1 cm (0.6 - 1.1) IVSs: 1.5 cm LVIDs: 2.4 cm LVPWs: 1.4 cm LA Diam: 2.6 cm (2.7 - 3.8) LAESV Index (A-L): 15.35 ml/m Ao Diam: 3.0 cm (2.0 - 3.7) AV Cusp: 2.1 cm (1.5 - 2.6) MV EXCURSION: 17.658 mm (> 18.000) MV EF SLOPE: 113 mm/s (70 - 150) EPSS: 1.1 cm MV E Juan: 0.82 m/s MV DecT: 294 ms MV A Juan: 0.63 m/s MV E/A Ratio: 1.31 RAP: 5.00 mmHg RVSP: 19.92 mmHg FINDINGS -------- Sinus rhythm. This was a technically adequate study. The left ventricular size is normal. Left ventricular wall thickness is normal. Overall left vent ricular systolic function is normal with, an EF between 60 - 65 %. The right ventricle is normal in size. Normal LA size by volume 22+/-6 ml/m2. The right atrium is normal in size. Interatrial and interventricular septum intact. The aortic valve is trileaflet and appears structurally normal. The mitral valve is normal. There is trace mitral regurgitation. Mild tricuspid regurgitation present. Right ventricular systolic pressure is normal at < 35 mmHg. The pulmonic valve was not well visualized. The aortic root size is normal. Normal inferior vena cava with normal inspiratory collapse consistent with estimated right atrial pre ssure of 5 mmHg. Echo free space may represent effusion or a pericardial fat pad. CONCLUSIONS -------- 1. Sinus rhythm. 2. This was a technically adequate study. 3. The left ventricular size is normal. 4. Left ventricular wall thickness is normal. 5. Overall left ventricular systolic function is normal with, an EF between 60 - 65 %. 6. The right ventricle is normal in size. 7. Normal LA size by volume 22+/-6 ml/m2. 8. The right atrium is normal in size. 9. Interatrial and interventricular septum intact. 10. The aortic valve is trileaflet and appears structurally normal. 11. The mitral valve is normal. 12. There is trace mitral regurgitation. 13. Mild tricuspid regurgitation present. 14. Right ventricular systolic pressure is normal at < 35 mmHg. 15. The pulmonic valve was not well visualized. 16. The aortic root size is normal. 17. Normal inferior vena cava with normal inspiratory collapse consistent with estimated right atrial pressure of 5 mmHg. 18. Echo free space may represent effusion or a pericardial fat pad. ELIGIBILITY AND OCCUPANCY INTERVIEWER: SHEMAR Kurtz
--- NOTE | 2019-10-22 23:13 | CONS ---
CONSULTATION This is a 54-year-old lady with a known history of intracranial tumor, for which she had surgery, chemotherapy and radiation. This lady has been under the care of Dr. Liu and is known to have seizure disorder, seizure episodes, but these have been fairly stable. She came into the hospital on Tuesday night when she had a situation which seemed to be more or less like an atypical seizure. She has history of glioblastoma multiforme and seizure disorder. When she came to the hospital, the circumstances were such that as she was getting ready for bed, she suddenly had a feeling of an uncomfortable sensation in the upper abdomen area; it felt like a cramp; and she felt very warm, woozy, lightheaded, and she apparently was going to pass out when her caught her. Her stated, according to the note, that she had some tonic-clonic activity that lasted a few minutes and then stopped, and she was confused for about 5 to 10 minutes after that. She also lost control of her bladder but not bowel. Since she came here, she was seen by Neurology and they felt seizure was less likely and wanted to rule out syncope, and I was involved. On reviewing the chart, it appears that she was hypokalemic when she came. This has been corrected and I reviewed the entire rhythm strips. There is no evidence of any tachy or bradyarrhythmias. The patient was monitored closely. She has not had any recurrence. She feels well, has a decent recollection of what happened, but not completely. She is asymptomatic at the time of my evaluation. PAST MEDICAL HISTORY: 1. History of glioblastoma multiforme. 2. Seizure disorder. 3. Status post surgery, chemo and radiation therapy at [facility]. She has no history of hypertension, diabetes or hyperlipidemia. She has some anxiety and depression. Patient is not a smoker. ALLERGIES: She is ALLERGIC to DILANTIN AND LAMICTAL. MEDICATIONS: Medications at home include Celexa 40 mg daily, baclofen 20 mg daily, Synthroid 50 mcg daily, amoxicillin, temazepam and Flexeril. PHYSICAL EXAMINATION: Blood pressure is 118/70. Pulse rate is 70. HEENT unremarkable. Fundus was not examined by me. Neck is supple. There is no JVD. I do not hear a carotid bruit. Heart exam reveals S1, S2 heard normally. There are no significant murmurs. Lungs are clear. Abdomen is soft, nontender. Lower extremities reveal normal pulses. No edema. Central nervous system grossly no focal deficit. EKG revealed sinus mechanism, nondiagnostic inferior Q-waves. LAB DATA: Lab data revealed hypokalemia that has resolved. Troponin was normal. Electrolytes this morning are unremarkable. IMPRESSION: 1. Episode of what seems to be a transient loss of consciousness with tonic- clonic activity. Cannot exclude syncope, but given the fact patient has previous intracranial tumor, a seizure remains on the top of the diagnosis. 2. Cannot exclude vasovagal syncope; seems less likely. 3. History of intracranial glioblastoma multiforme, status post surgery, chemo and radiation therapy. RECOMMENDATIONS: I am recommending that she should stay well hydrated. I am also suggesting that she should have a full neurology evaluation as an outpatient, including EEG as well in light of what happened today. I tend to believe this is more likely to be a seizure and less likely to be cardiogenic syncope. However, so far we have not seen any arrhythmia. I will obtain echocardiogram today and also place a 2-week event monitor and then see her in the office following that. I discussed my thoughts in detail with the patient, spoke to her son, who is a physician and hospitalist in the [place] area. Thank you very much for the consult. MIGUELITOL / IJN: [id number] / RAYMOND
== END 2019-10-22 17:46 | disposition home or self-care (01) ==
LOC: EC 23:15 → 1SOBS 10-21 01:39
PROVIDERS: ADMIT Family Medicine; ATTEND Family Medicine
DX: R55 Syncope and collapse (principal); R07.9 Chest pain, unspecified; R10.9 Unspecified abdominal pain; R06.02 Shortness of breath; E87.6 Hypokalemia; G40.909 Epilepsy, unspecified, not intractable, without status epilepticus; Z85.841 Personal history of malignant neoplasm of brain; Z92.3 Personal history of irradiation; Z92.21 Personal history of antineoplastic chemotherapy; E03.9 Hypothyroidism, unspecified; M81.0 Age-related osteoporosis without current pathological fracture; F41.9 Anxiety disorder, unspecified; F32.9 Major depressive disorder, single episode, unspecified; Z88.8 Allergy status to other drugs, medicaments and biological substances; Z79.890 Hormone replacement therapy; Z79.899 Other long term (current) drug therapy; Z90.49 Acquired absence of other specified parts of digestive tract; Z90.710 Acquired absence of both cervix and uterus; Z80.9 Family history of malignant neoplasm, unspecified; W19.XXXA Unspecified fall, initial encounter; Y92.009 Unspecified place in unspecified non-institutional (private) residence as the place of occurrence of the external cause
CPT/HCPCS: 96365; 96366; 96375; 99285; 36415; 93005; 93306; 93270; 80048 ×2; 82553; 83605; 83735; 84484; 85025 ×2; 85610; 85730; 71046; 72125; 70450; G0378 ×2; J2060; J3480

== ENCOUNTER → 2019-10-27 | Outpatient (CLI) | payer MEDICARE, BC ==
[2019-10-27 11:50] LABS: African American GFR (CKD) 66 (>60 ml/min/1.73 sqM); Anion Gap 8 mmol/L; Blood Urea Nitrogen 15 mg/dL (7-17); Calcium 9.4 mg/dL (8.4-10.2); Carbon Dioxide 28 mmol/L (22-30); Chloride 102 mmol/L (98-107); Glucose 99 mg/dL (74-99); Non-African American GFR(CKD) 58 (>60 ml/min/1.73 sqM); Potassium 4.6 mmol/L (3.5-5.1); Sodium 138 mmol/L (137-145)
== END | disposition home or self-care (01) ==
LOC: LABWHC1 11:04
PROVIDERS: ATTEND Family Medicine
DX: E87.6 Hypokalemia (principal)
CPT/HCPCS: 36415; 80048

== ENCOUNTER → 2020-02-29 | Outpatient (CLI) | payer MEDICARE, BC ==
--- NOTE | 2020-02-29 13:05 | MR ---
EXAMINATION TYPE: MR brain wo/w con DATE OF EXAM: 02/29/2020 COMPARISON: Prior MR brain 07/18/2019 HISTORY: Malignant neoplasm of parietal lobe TECHNIQUE: Multiplanar, multisequence images of the brain and brainstem is performed without and with IV contras t, utilizing 5.5 mL intravenous Gadavist . FINDINGS: Diffusion weighted images demonstrate no evidence of a recent infarct or other diffusion ab normality. There is no extra-axial fluid collection. Some progression in white matter signal change in the periventricular regions, frontal lobes on inversion recovery T2-weighted sequences as compared to prior. Craniotomy change is again noted, focal area of low signal at the convexity on the left, encephalomalacia shows a similar appearance. No abnormal enhancement. The ventricular system and cist ernal spaces are normal in size and appearance. The brain volume is age appropriate. Midline structures demonstrate normal morphology. The craniocervical junction appears within normal limits. Post contrast images demonstrate no abnormal enhancement. The dural venous sinuses appear pa tent. The visualized sinuses are clear and the globes are intact. IMPRESSION: There may be a combination of mild increase in nonlocalized white matter signal possibly related to treatment and increased conspicuity of abnormal white matter signal. There is no abnormal enhancement to suggest tumor recurrence. Postop changes.
== END | disposition home or self-care (01) ==
LOC: RADMRIMAIN 08:11
PROVIDERS: ATTEND Neurological Surgery
DX: R90.82 White matter disease, unspecified (principal); C71.3 Malignant neoplasm of parietal lobe; Z79.899 Other long term (current) drug therapy
CPT/HCPCS: 70553; A9585

== ENCOUNTER → 2020-03-24 | Outpatient (CLI) | payer MEDICARE, BC ==
--- NOTE | 2020-03-26 10:29 | MM ---
Reason for exam: screening (asymptomatic). Last mammogram was performed 1 year and 1 month ago. History: Patient is postmenopausal and has history of other cancer at age 38. Benign excisional biopsy of the right breast, July 31, 1998. Took hormonal contraceptives for 8 years. Took tamoxifen for 1 year beginning at age 37. Physical Findings: A clinical breast exam by your physician is recommended on an annual basis and results should be correlated with mammographic findings. MG 3D Screening Mammo W/Cad Bilateral CC and MLO view(s) were taken. Prior study comparison: March 08, 2019, bilateral MG 3d screening mammo w/cad. February 28, 2018, bilateral MG 3d diag mammo w/cad ANDREA. The breast tissue is heterogeneously dense. This may lower the sensitivity of mammography. No significant changes when compared with prior studies. ASSESSMENT: Benign, BI-RAD 2 RECOMMENDATION: Routine screening mammogram of both breasts in 1 year.
== END | disposition home or self-care (01) ==
LOC: RADMAMWWP 10:29
PROVIDERS: ATTEND Obstetrics & Gynecology
DX: Z12.31 Encounter for screening mammogram for malignant neoplasm of breast (principal)
CPT/HCPCS: 77063; 77067

== ENCOUNTER 2020-04-09 15:32 | Emergency (ER) | payer BC, MEDICARE ==
[2020-04-09 15:42] VITALS: BP 106/69; PULSE 83; RESP 18; TEMP 99.2
--- NOTE | 2020-04-09 15:48 | ED ---
General Adult HPI - General Chief complaint: Wound/Laceration Stated complaint: Cut left index finger and fell in our parking lot Time Seen by Provider: 04/09/20 15:44 Source: patient Mode of arrival: wheelchair Limitations: no limitations - History of Present Illness Initial comments: Patient presents the ED stating that she sustained a left index finger laceration while quilting just prior to arrival to the ED today. Patient states that she accidentally cut her finger with a (nonelectrical) rotary blade. Patient has applied Band-Aids to her laceration. Patient states that she accidentally tripped over the curb on her way into the ED today, causing her to fall down. Patient has sustained superficial abrasions over her bilateral knees and right elbow from her fall. Patient denies sustaining any other injuries from her fall today, and she denies having any significant pain at this time. Patient denies head injury, headache, focal numbness/weakness/neuro deficit, neck/back/elbow/lower extremity pain, chest pain, dyspnea, dizziness, abdominal pain, nausea/vomiting, or any other symptoms or complaints. Patient states that she is unsure of her last tetanus shot. Patient denies anticoagulant medication use. - Related Data Home Medications Medication Instructions Recorded Confirmed Citalopram Hydrobromide [CeleXA] 40 mg PO HS 06/12/14 10/21/19 clonazePAM [KlonoPIN] 0.5 mg PO HS 10/11/16 10/21/19 Levothyroxine Sodium [Synthroid] 50 mcg PO DAILY 11/16/18 10/21/19 Cyclobenzaprine [Flexeril] 10 mg PO HS 07/02/19 10/21/19 cycloSPORINE 0.05% OPHTH SOLN 1 applicator BOTH EYES BID 07/02/19 10/21/19 [Restasis] Amitriptyline HCl 30 mg PO HS 10/21/19 10/21/19 Amoxicillin 875 mg PO Q12HR 10/21/19 10/21/19 Lidocaine Viscous 2% [Xylocaine 10 ml MUCOUS MEM Q4H PRN 10/21/19 10/21/19 Viscous] Pantoprazole [Protonix] 40 mg PO BID 10/21/19 10/21/19 Previous Rx's Medication Instructions Recorded Benzocaine/Menthol Lozeng [Cepacol 1 each MUCOUS MEM Q4HR PRN lozenge 10/22/19 lozenge] Allergies Allergy/AdvReac Type Severity Reaction Status Date / Time lamotrigine [From Lamictal] Allergy Rash/Hives Verified 04/09/20 16:43 phenytoin sodium Allergy Anaphylaxis Verified 04/09/20 16:43 [From Dilantin] phenytoin sodium extended Allergy Anaphylaxis Verified 04/09/20 16:43 [From Dilantin] Review of Systems ROS Statement: Those systems with pertinent positive or pertinent negative responses have been documented in the HPI. ROS Other: All systems not noted in ROS Statement are negative. Past Medical History Past Medical History: Cancer, Seizure Disorder Additional Past Medical History / Comment(s): Brain Tumor - 2002. Chemotherapy and Radiation for brain tumor. Osteoporosis History of Any Multi-Drug Resistant Organisms: None Reported Past Surgical History: Cholecystectomy, Hysterectomy Additional Past Surgical History / Comment(s): Brain surgery for Cancer; Colonoscopy Past Anesthesia/Blood Transfusion Reactions: No Reported Reaction Past Psychological History: No Psychological Hx Reported Smoking Status: Never smoker Past Alcohol Use History: None Reported Past Drug Use History: None Reported - Past Family History Father Family Medical History: Cancer Additional Family Medical History / Comment(s): Brain tumor General Exam Limitations: no limitations General appearance: alert, in no apparent distress Head exam: Present: atraumatic, normocephalic Eye exam: Present: normal appearance, EOMI ENT exam: Present: mucous membranes moist Neck exam: Present: other (Trachea is in midline). Absent: tenderness Respiratory exam: Present: normal lung sounds bilaterally. Absent: respiratory distress, wheezes, rales, rhonchi Cardiovascular Exam: Present: regular rate, normal rhythm, normal heart sounds, other (Normal radial pulses bilaterally) GI/Abdominal exam: Present: soft. Absent: distended, tenderness, guarding Extremities exam: Present: full ROM, other (Superficial abrasions are noted over bilateral knees and right elbow without any swelling or tenderness noted to these joints; patient has full range of motion at these joints; pelvis is stable and nontender; a curvilinear, 1 cm, subcutaneous laceration is noted to the patient's dorsal lateral left index finger distal to her DIP joint) Back exam: Present: normal inspection. Absent: tenderness Neurological exam: Present: alert, oriented X3. Absent: motor sensory deficit Psychiatric exam: Present: normal affect, normal mood Skin exam: Present: warm, dry, normal color Course Vital Signs 04/09/20 15:39 Temperature 99.2 F Pulse Rate 83 Respiratory 18 Rate Blood Pressure 106/69 O2 Sat by Pulse 98 Oximetry Procedures - Laceration Laceration #1 Consent Obtained: verbal consent Indication: laceration Site: hand Size (cm): 1 (Left index finger) Description: flap, clean Depth: simple, single layer Sedation/Analgesia: none Pre-repair: irrigated extensively, deep structures intact Type of Sutures: other (Tissue adhesive) Complications: other (None) Patient Tolerated Procedure: well, no complications Medical Decision Making - Medical Decision Making Patient's wound was cleaned and repaired myself with tissue adhesive. Patient's tetanus was updated. Patient was counseled about laceration/abrasion/wound care. She was clearly explained return and follow-up instructions, and she feels comfortable going home at this time. She feels comfortable with this plan. Disposition Clinical Impression: Laceration of finger of left hand, Fall, Abrasions of multiple sites Disposition: HOME SELF-CARE Condition: Stable Instructions (If sedation given, give patient instructions): Laceration (ED), Fall Prevention (ED) Additional Instructions: Return to the ER immediately should you develop new or worsening pain, significant bleeding, redness around your wound, drainage of pus from your wound, shortness of breath, feeling dizzy or faint, or new or worsening symptoms. Follow up closely with your primary care provider. Is patient prescribed a controlled substance at d/c from ED?: No Referrals: Angel Bains MD [Primary Care Provider] - 1-2 days Time of Disposition: 16:59
[2020-04-09] MEDS ORDERED: DIPH,PERTUS(ACELL)TETVAC-LF 0.5 ML VIAL IM ONE (15:58)
[2020-04-09] MEDS ORDERED: GELATIN SPONGE,ABSORB (SMALL) 1 EACH SPONGE TOPICAL STA (16:13)
[2020-04-09] MEDS ORDERED: TOPICAL SKIN ADHESIVE 1 EACH AMP TOPICAL ONE (16:13)
== END 2020-04-09 17:46 | disposition home or self-care (01) ==
LOC: EC 15:32
DX: S61.211A Laceration without foreign body of left index finger without damage to nail, initial encounter (principal); S80.212A Abrasion, left knee, initial encounter; S80.211A Abrasion, right knee, initial encounter; S50.311A Abrasion of right elbow, initial encounter; W01.0XXA Fall on same level from slipping, tripping and stumbling without subsequent striking against object, initial encounter; Y92.481 Parking lot as the place of occurrence of the external cause; W26.8XXA Contact with other sharp object(s), not elsewhere classified, initial encounter; Y93.89 Activity, other specified; Z85.841 Personal history of malignant neoplasm of brain; Z23 Encounter for immunization; Z88.8 Allergy status to other drugs, medicaments and biological substances
CPT/HCPCS: 12001; 90471; 90715; 99282

== ENCOUNTER → 2020-05-21 | Outpatient (CLI) | payer MEDICARE, BC ==
--- NOTE | 2020-05-21 17:18 | MR ---
MRI CERVICAL SPINE: CLINICAL HISTORY: History of glioblastoma with spinal stenosis, myelopathy, worsening ataxia, and ear ly cord compression PER order. TECHNIQUE: Multiplanar, multisequence imaging of the cervical spine is performed without IV contrast. Demyelinating disease protocol. COMPARISON: MRI cervical spine April 10, 2019. CT cervical spine October 21, 2019.. FINDINGS: Coronal images redemonstrate extra convex scoliosis centered in the visualized thoracic spi ne. Sagittal images of the cervical spine show the craniocervical junction to remain within normal li mits. The cervical and upper thoracic spinal cord remains normal in course, caliber, and signal. Ve rtebral alignment is stable with subtle grade 1 retrolisthesis C5 on C6. The vertebral body heights remain normal. Persistent moderate disc space narrowing C5-C6 level. The bone marrow signal intensit y is within normal limits. Axial images show the C2-C3 level to remain within normal limits. Axial images at the C3-C4 level redemonstrate some uncovertebral facet degenerative changes bilateral ly with tiny central disc protrusion minimally effacing anterior thecal sac, bilateral neural foramin a remain patent. No significant change from prior. Axial images at C4-C5 level shows broad-based central disc protrusion effacing the anterior thecal sa c with some right-sided marginal osteophytes causing asymmetric mild to moderate right-sided neural f oraminal narrowing. No significant change from prior MRI. Axial images at the C5-C6 level show spondylolisthesis with broad-based posterior disc protrusion eff acing the anterior thecal sac and posterior spurring. There is mild right greater than left bilateral neural foraminal narrowing. No significant change from prior. Axial images at C6-C7 level shows broad-based left paracentral disc protrusion effacing anterior thec al sac, bilateral neural foramina are patent. No significant change from prior. Axial images at C7-T1 level remain within normal limits. IMPRESSION: Multilevel degenerative changes in the cervical spine greatest at C5-C6 level. No signifi cant change or progression from prior MRI 2019.
== END | disposition home or self-care (01) ==
LOC: RADMRIMAIN 08:53
PROVIDERS: ATTEND Psychiatry & Neurology Neurology
DX: M47.892 Other spondylosis, cervical region (principal); M48.02 Spinal stenosis, cervical region; G95.9 Disease of spinal cord, unspecified
CPT/HCPCS: 72141

== ENCOUNTER → 2021-02-24 | Outpatient (CLI) | payer MEDICARE, BC ==
--- NOTE | 2021-02-24 09:43 | MR ---
EXAMINATION TYPE: MR brain wo/w con DATE OF EXAM: 02/24/2021 COMPARISON: 02/29/2020 HISTORY: Follow up, malignant neoplasm of parietal lobe with brain surgery 2002. History of left and right side weakness. TECHNIQUE: Multiplanar, multisequence images of the brain and brainstem is performed without and with IV contras t, utilizing 5.5 mL intravenous Gadavist . FINDINGS: Diffusion weighted images demonstrate no evidence of a recent infarct or other diffusion ab normality. There is confluent focal areas of abnormal signal involving the white matter similar to th e prior exam most typical remote ischemic white matter change. Focal area of low signal involving the left parietal lobe encephalomalacia stable. No enhancing lesion. Ventricular system is compatible with patient's age. No midline shift or mass effect. Midline structures demonstrate normal morphology. The craniocervical junction appears within normal limits. Post contrast images demonstrate no abnormal enhancement. The dural venous sinuses appear pa tent. The visualized sinuses are clear and the globes are intact. IMPRESSION: 1. Stable postoperative changes. Nonspecific white matter changes are stable. There is no enhancing m ass or mass effect.
== END | disposition home or self-care (01) ==
LOC: RADMRIMAIN 08:43
PROVIDERS: ATTEND Physician Assistant
DX: C71.3 Malignant neoplasm of parietal lobe (principal)
CPT/HCPCS: 70553; A9585

== ENCOUNTER → 2021-03-17 | Outpatient (CLI) | payer MEDICARE, BC | END | disposition home or self-care (01) ==

== ENCOUNTER → 2021-05-08 | Outpatient (CLI) | payer MEDICARE, BC ==
--- NOTE | 2021-05-11 09:52 | MM ---
Reason for exam: screening (asymptomatic). Last mammogram was performed 1 year and 1 month ago. History: Patient is postmenopausal and has history of other cancer at age 38. Benign excisional biopsy of the right breast, July 31, 1998. Took hormonal contraceptives for 8 years. Took tamoxifen for 1 year beginning at age 37. Physical Findings: A clinical breast exam by your physician is recommended on an annual basis and results should be correlated with mammographic findings. MG 3D Screening Mammo W/Cad Bilateral CC and MLO view(s) were taken. XCCL view(s) were taken of the right breast. Prior study comparison: March 24, 2020, bilateral MG 3d screening mammo w/cad. March 08, 2019, bilateral MG 3d screening mammo w/cad. February 28, 2018, bilateral MG 3d diag mammo w/cad ANDREA. The breast tissue is heterogeneously dense. This may lower the sensitivity of mammography. There is no discrete abnormality. ASSESSMENT: Negative, BI-RAD 1 RECOMMENDATION: Routine screening mammogram of both breasts in 1 year.
== END | disposition home or self-care (01) ==
LOC: RADMAMWWP 08:56
PROVIDERS: ATTEND Obstetrics & Gynecology
DX: Z12.31 Encounter for screening mammogram for malignant neoplasm of breast (principal); Z80.8 Family history of malignant neoplasm of other organs or systems
CPT/HCPCS: 77063; 77067

== ENCOUNTER 2021-07-22 14:53 | Observation (INO) | payer MEDICARE, BC ==
--- NOTE | 2021-07-22 15:38 | ED ---
Fall HPI - General Chief Complaint: Fall Stated Complaint: fall Time Seen by Provider: 07/22/21 14:55 Source: patient, RN notes reviewed Mode of arrival: wheelchair Limitations: no limitations - History of Present Illness Initial Comments: This a 56-year-old female presents emergency Department chief complaint of fall. Patient fell on Tuesday in her basement striking her head on the concrete. Patient noted have some bruising. I did receive a phone call prior to the patient arriving from Neal Rooney stating that she has had some balance issues were worse, family states that she's been having some expressive aphasia issues. Patient states she does have some moderate pain, bruising to her face, does not that she's unbalanced when walking. No chest pain no palpitations no shortness of breath. She had no repeat reported nausea vomiting. - Related Data Home Medications Medication Instructions Recorded Confirmed Citalopram Hydrobromide [CeleXA] 40 mg PO HS 06/12/14 04/09/20 clonazePAM [KlonoPIN] 0.5 mg PO HS 10/11/16 04/09/20 Levothyroxine Sodium [Synthroid] 50 mcg PO DAILY 11/16/18 04/09/20 Cyclobenzaprine [Flexeril] 10 mg PO HS 07/02/19 04/09/20 cycloSPORINE 0.05% OPHTH SOLN 1 drop BOTH EYES BID 07/02/19 04/09/20 [Restasis] Amitriptyline HCl 20 mg PO HS 10/21/19 04/09/20 Pantoprazole [Protonix] 40 mg PO DAILY 10/21/19 04/09/20 Ascorbic Acid [Vitamin C] 500 mg PO HS 04/09/20 04/09/20 Calcium Carbonate [Calcium] 600 mg PO HS 04/09/20 04/09/20 Vitamin D3(Unknown Dose) 1 tab PO HS 04/09/20 04/09/20 Vitamin E 400 unit PO HS 04/09/20 04/09/20 Zonisamide [Zonegran] 200 mg PO HS 04/09/20 04/09/20 Allergies Allergy/AdvReac Type Severity Reaction Status Date / Time lamotrigine [From Lamictal] Allergy Rash/Hives Verified 07/22/21 15:00 phenytoin sodium Allergy Anaphylaxis Verified 07/22/21 15:00 [From Dilantin] phenytoin sodium extended Allergy Anaphylaxis Verified 07/22/21 15:00 [From Dilantin] Review of Systems ROS Statement: Those systems with pertinent positive or pertinent negative responses have been documented in the HPI. ROS Other: All systems not noted in ROS Statement are negative. Past Medical History Past Medical History: Cancer, Seizure Disorder Additional Past Medical History / Comment(s): Brain Tumor - 2002. Chemotherapy and Radiation for brain tumor. Osteoporosis History of Any Multi-Drug Resistant Organisms: None Reported Past Surgical History: Cholecystectomy, Hysterectomy Additional Past Surgical History / Comment(s): Brain surgery for Cancer; Colonoscopy Past Anesthesia/Blood Transfusion Reactions: No Reported Reaction Past Psychological History: No Psychological Hx Reported Smoking Status: Never smoker Past Alcohol Use History: Occasional Past Drug Use History: None Reported - Past Family History Father Family Medical History: Cancer Additional Family Medical History / Comment(s): Brain tumor General Exam Limitations: no limitations General appearance: alert, in no apparent distress Head exam: Present: atraumatic, normocephalic, normal inspection Eye exam: Present: normal appearance, PERRL, EOMI, periorbital swelling (Bilateral), periorbital tenderness, other (Ecchymosis bilaterally). Absent: scleral icterus, conjunctival injection ENT exam: Present: normal exam, normal oropharynx, mucous membranes moist Neck exam: Present: normal inspection, full ROM. Absent: tenderness, meningismu s, lymphadenopathy Respiratory exam: Present: normal lung sounds bilaterally. Absent: respiratory distress, wheezes, rales, rhonchi, stridor Cardiovascular Exam: Present: regular rate, normal rhythm, normal heart sounds. Absent: systolic murmur, diastolic murmur, rubs, gallop, clicks Extremities exam: Present: normal inspection, full ROM, normal capillary refill. Absent: tenderness, pedal edema, joint swelling, calf tenderness Neurological exam: Present: alert, oriented X3, CN II-XII intact. Absent: motor sensory deficit Skin exam: Present: warm, dry, intact, normal color. Absent: rash Course Vital Signs 07/22/21 15:00 Temperature 98.5 F Pulse Rate 72 Respiratory 20 Rate Blood Pressure 113/66 O2 Sat by Pulse 100 Oximetry Medical Decision Making - Medical Decision Making 56-year-old presented for fall on Tuesday. Patient's had some unsteady gait, some expressive aphasias patient does have a history of a glioblastoma in which she's had some issues after. Symptoms seemed to worsen CT is negative, labs unremarkable. Patient be kept for neuro evaluation. - Lab Data Result diagrams: 07/22/21 15:29 07/22/21 15:29 Lab Results 07/22/21 07/22/21 07/22/21 Range/Units 15:29 15:29 15:29 WBC 4.3 (3.8-10.6) k/uL RBC 4.04 (3.80-5.40) m/uL Hgb 12.3 (11.4-16.0) gm/dL Hct 37.2 (34.0-46.0) % MCV 92.1 (80.0-100.0) fL MCH 30.4 (25.0-35.0) pg MCHC 33.1 (31.0-37.0) g/dL RDW 12.9 (11.5-15.5) % Plt Count 203 (150-450) k/uL MPV 6.7 Neutrophils % 50 % Lymphocytes % 35 % Monocytes % 6 % Eosinophils % 5 % Basophils % 1 % Neutrophils # 2.1 (1.3-7.7) k/uL Lymphocytes # 1.5 (1.0-4.8) k/uL Monocytes # 0.2 (0-1.0) k/uL Eosinophils # 0.2 (0-0.7) k/uL Basophils # 0.0 (0-0.2) k/uL PT 9.9 (9.0-12.0) sec INR 0.9 (<1.2) APTT 23.9 (22.0-30.0) sec Sodium 138 (137-145) mmol/L Potassium 4.3 (3.5-5.1) mmol/L Chloride 106 (98-107) mmol/L Carbon Dioxide 27 (22-30) mmol/L Anion Gap 5 mmol/L BUN 15 (7-17) mg/dL Creatinine 1.02 (0.52-1.04) mg/dL Est GFR (CKD-EPI)AfAm 70 (>60 ml/min/1.73 sqM) Est GFR (CKD-EPI)NonAf 61 (>60 ml/min/1.73 sqM) Glucose 86 (74-99) mg/dL Calcium 9.3 (8.4-10.2) mg/dL Total Bilirubin 0.3 (0.2-1.3) mg/dL AST 34 (14-36) U/L ALT 23 (4-34) U/L Alkaline Phosphatase 78 (38-126) U/L Troponin I (0.000-0.034) ng/mL Total Protein 6.8 (6.3-8.2) g/dL Albumin 4.1 (3.5-5.0) g/dL 07/22/21 Range/Units 15:29 WBC (3.8-10.6) k/uL RBC (3.80-5.40) m/uL Hgb (11.4-16.0) gm/dL Hct (34.0-46.0) % MCV (80.0-100.0) fL MCH (25.0-35.0) pg MCHC (31.0-37.0) g/dL RDW (11.5-15.5) % Plt Count (150-450) k/uL MPV Neutrophils % % Lymphocytes % % Monocytes % % Eosinophils % % Basophils % % Neutrophils # (1.3-7.7) k/uL Lymphocytes # (1.0-4.8) k/uL Monocytes # (0-1.0) k/uL Eosinophils # (0-0.7) k/uL Basophils # (0-0.2) k/uL PT (9.0-12.0) sec INR (<1.2) APTT (22.0-30.0) sec Sodium (137-145) mmol/L Potassium (3.5-5.1) mmol/L Chloride (98-107) mmol/L Carbon Dioxide (22-30) mmol/L Anion Gap mmol/L BUN (7-17) mg/dL Creatinine (0.52-1.04) mg/dL Est GFR (CKD-EPI)AfAm (>60 ml/min/1.73 sqM) Est GFR (CKD-EPI)NonAf (>60 ml/min/1.73 sqM) Glucose (74-99) mg/dL Calcium (8.4-10.2) mg/dL Total Bilirubin (0.2-1.3) mg/dL AST (14-36) U/L ALT (4-34) U/L Alkaline Phosphatase (38-126) U/L Troponin I <0.012 (0.000-0.034) ng/mL Total Protein (6.3-8.2) g/dL Albumin (3.5-5.0) g/dL Disposition Clinical Impression: Fall, Unsteady gait, Aphasia Disposition: ADMITTED IP TO THIS [facility] Condition: Stable Referrals: Angel Bains MD [Primary Care Provider] - 1-2 days
--- NOTE | 2021-07-22 15:41 | CT ---
EXAMINATION TYPE: CT brain wo con, CT facial bones wo con DATE OF EXAM: 07/22/2021 COMPARISON: CT brain 10/21/2019, MR brain 02/24/2021 HISTORY: fall, trauma, pain, ecchymosis CT DLP: combined DLP 763.1 mGycm Automated exposure control for dose reduction was used. Helical imaging through the facial bones and brain FINDINGS: CT brain: There may be some progression in patient's white matter low-attenuation in the periventricu lar location of the frontoparietal lobes on the left compared to prior CT, mild asymmetry in the late ral ventricles is likely stable, there is no hemorrhage or hydrocephalus. Left frontal craniotomy vivian nge is again noted. Facial bone CT: There is no evident fracture. Paranasal sinuses are well aerated. Orbits are intact. Ostiomeatal units are patent. Suspect some frontal scalp swelling. IMPRESSION: THERE MAY BE SOME PROGRESSION IN ABNORMAL WHITE MATTER DENSITY ALTHOUGH THERE ARE DIFFERENCES IN TECH NIQUE, MRI MAY BE OF BENEFIT. NO FACIAL BONE FRACTURE IS SEEN.
--- NOTE | 2021-07-22 15:44 | XR ---
EXAMINATION TYPE: XR chest 2V DATE OF EXAM: 07/22/2021 COMPARISON: Chest x-ray 10/21/2019 HISTORY: Altered mental status, fall TECHNIQUE: Frontal and lateral views of the chest are obtained. FINDINGS: There is no focal air space opacity, pleural effusion, or pneumothorax seen. The cardiac silhouette size is within normal limits. Surgical clips are present in the right upper quadrant. The osseous structures are intact. IMPRESSION: No acute cardiopulmonary process.
[2021-07-22 16:49] LABS: Basophils % (A) 1 %; Eosinophils # (A) 0.2 k/uL (0-0.7); Eosinophils % (A) 5 %; HCT 37.2 % (34.0-46.0); HGB 12.3 gm/dL (11.4-16.0); Lymphocytes # (A) 1.5 k/uL (1.0-4.8); Lymphocytes % (A) 35 %; MCH 30.4 pg (25.0-35.0); MCHC 33.1 g/dL (31.0-37.0); MCV 92.1 fL (80.0-100.0); Mean Platelet Volume 6.7; Monocytes # (A) 0.2 k/uL (0-1.0); Monocytes % (A) 6 %; Neutrophils # (A) 2.1 k/uL (1.3-7.7); Neutrophils % (A) 50 %; Platelet Count 203 k/uL (150-450); RBC 4.04 m/uL (3.80-5.40); RDW 12.9 % (11.5-15.5); WBC 4.3 k/uL (3.8-10.6)
[2021-07-22 17:00] LABS: INR 0.9 (<1.2); Partial Thromboplastin Time 23.9 sec (22.0-30.0); Prothrombin Time 9.9 sec (9.0-12.0)
[2021-07-22 17:02] LABS: Albumin 4.1 g/dL (3.5-5.0); Calcium 9.3 mg/dL (8.4-10.2); Potassium 4.3 mmol/L (3.5-5.1); Total Bilirubin 0.3 mg/dL (0.2-1.3); Total Protein 6.8 g/dL (6.3-8.2)
[2021-07-22] MEDS ORDERED: ACETAMINOPHEN TAB 325 MG TAB PO PRN (17:38)
[2021-07-22] MEDS ORDERED: clonazePAM 0.5 MG TAB PO SCH (21:00)
[2021-07-22] MEDS ORDERED: AMITRIPTYLINE HCL 10 MG TAB PO SCH (21:00)
[2021-07-22] MEDS ORDERED: ZONISAMIDE 100 MG CAP PO SCH (21:00)
[2021-07-22] MEDS ORDERED: CYCLOBENZAPRINE 10 MG TAB PO SCH (21:00)
[2021-07-22] MEDS ORDERED: CITALOPRAM HYDROBROMIDE 20 MG TAB PO SCH (21:00)
[2021-07-22] MEDS: FAMOTIDINE 20 MG TAB PO SCH (21:22)
[2021-07-22 21:33] LABS: T4, Free (Free Thyroxine) 0.95 ng/dL (0.78-2.19)
[2021-07-23] MEDS ORDERED: LEVOTHYROXINE 75 MCG TAB PO SCH (06:30)
[2021-07-23 07:33] LABS: Folate, Serum >20.00 ng/mL (4.40-31.00)
[2021-07-23] MEDS ORDERED: CALCIUM CARB-VIT D 500 MG-5 MCG TAB PO SCH (09:00)
[2021-07-23] MEDS: FAMOTIDINE 20 MG TAB PO SCH (09:33)
--- NOTE | 2021-07-23 09:54 | P.CNNES ---
History of Present Illness Consult date: 07/23/21 Requesting physician: Obed Jorge Reason for Consult: unsteady gait and expressive aphasia History of Present Illness: This is a 56-year-old woman with history of glioblatoma multiform over left side (diagnosed 2002) status post surgery, radiation and chemotherapy, seizure who presented to the emergency department on 07/22/2021 for a fall. Patient stated that she fell on Tuesday in her basement and she was doing laundry. She said she has unsteady gait and has falls. This current fall she fell hit her head on con crete. She has bruising to her face predominately left side. She denies loss of consciousness. She denies any focal weakness, numbness, jerking of any extremities during the episode. She denies any urinary or bowel incontinence associated with it. She said she is getting physical therapy for her unsteady gait as outpatient. She uses a cane. As stated earlier she denies any focal weakness. It was reported by the ED team she is having expressive aphasia that was reported by family members. Per nurse he speech has been normal to her. Patient denies of headaches or visual disturbance. Of note patient was involved in clinical trial when she took tamoxifen in past and continues to follow-up with a neuro-oncologist over [facility] for her Glioblastoma Multiforme, and follows-up with them every 8 weeks. She follows-up with her local neurologist (Dr. Liu) and states has an appointment next week. She had had multiple MRI's of the Brains in our facility and the last one was on 02/24/2021 and it's reported as stable postoperative changes. Nonspecific white matter changes are stable. There is no enhancing mass or mass effect. Patient states her brain cancer is in remission that she was told. Regarding her seizures in the past she had jerking of the right upper extremity but denies loss of consciousness associated with it and has not had a seizure in a while. She is on home medication of Klonopin 0.5 mg daily at bedtime (to help with sleep), Zonegran 200 mg daily at bedtime (regarding her seizure medication). Her other home medication is amitriptyline 30 mg daily at bedtime, Celexa, Flexeril 10 mg daily at bedtime, Pepcid, Synthroid. Some of the work-up in the hospital consisted of: Initial vital signs was blood pressure of 113/66, heart rate of 72, respiratory of 20, temperature of 98.5 Fahrenheit oral and pulse ox of 100% at room air. CBC with differential is unremarkable Sodium is 138, creatinine is 1.02, serum glucose is 86, calcium is 9.3, AST of 34, ALTs 23. TSH is 2.64, free T4 is 0.95. Vitamin B12 is 701. Husain virus PCR was not detected. CT of the head and CT face is reported as there may be some mild progression and abnormal white matter density although there are differences in technique, MRI may be been at benefit. No facial bone fracture is seen. Personally reviewed the CT of the head and there is no acute or subacute ischemia. There is no intracranial hemorrhage. Patient does have encephalomalacia over the left frontal parietal lobe. Patient has left frontal craniotomy Review of Systems Review of system: The 12 point system was reviewed and apparent positive and negative per HPI. Past Medical History Past Medical History: Cancer, Seizure Disorder Additional Past Medical History / Comment(s): Brain Tumor - 2002. Chemotherapy and Radiation for brain tumor. Osteoporosis History of Any Multi-Drug Resistant Organisms: None Reported Past Surgical History: Cholecystectomy, Hysterectomy Additional Past Surgical History / Comment(s): Brain surgery for Cancer; Colonoscopy Past Anesthesia/Blood Transfusion Reactions: No Reported Reaction Past Psychological History: No Psychological Hx Reported Smoking Status: Never smoker Past Alcohol Use History: Occasional Past Drug Use History: None Reported - Past Family History Father Family Medical History: Cancer Additional Family Medical History / Comment(s): Brain tumor Medications and Allergies Home Medications Medication Instructions Recorded Confirmed Type clonazePAM [KlonoPIN] 0.5 mg PO HS 10/11/16 07/22/21 History Cyclobenzaprine [Flexeril] 10 mg PO HS 07/02/19 07/22/21 History Amitriptyline HCl 30 mg PO HS 10/21/19 07/22/21 History Zonisamide [Zonegran] 200 mg PO HS 04/09/20 07/22/21 History Calcium Carbonate/Vitamin D3 1 tab PO DAILY 07/22/21 07/22/21 History [Calcium 600 mg-Vit D3 5 mcg (200 unit)] Citalopram Hydrobromide [CeleXA] 40 mg PO HS 07/22/21 07/22/21 History Famotidine [Pepcid] 20 mg PO BID 07/22/21 07/22/21 History Levothyroxine Sodium [Synthroid] 75 mcg PO DAILY 07/22/21 07/22/21 History Allergies Allergy/AdvReac Type Severity Reaction Status Date / Time lamotrigine [From Lamictal] Allergy Rash/Hives Verified 07/22/21 17:41 phenytoin sodium Allergy Anaphylaxis Verified 07/22/21 17:41 [From Dilantin] phenytoin sodium extended Allergy Anaphylaxis Verified 07/22/21 17:41 [From Dilantin] Physical Examination - Vital Signs Vital Signs: Vital Signs Temp Pulse Pulse Resp BP BP Pulse Ox 07/23/21 01:40 98.3 F 61 16 92/55 98 07/22/21 21:49 65 16 07/22/21 21:00 98.2 F 65 16 110/73 98 07/22/21 18:29 65 18 133/83 98 07/22/21 15:00 98.5 F 72 20 113/66 100 Intake and Output 07/22/21 07/23/21 07/23/21 22:59 06:59 14:59 Other: Voiding Method Toilet # Voids 1 2 Weight 56.245 kg GENERAL: The patient is lying in bed and is not in acute distress. HENT: Echymoses over the left periorbital and slight over the right medial periorbital. CHEST: The heart rate is regular rate rhythm. No edema of lower extremities. LUNG: Clear to auscultation bilaterally no wheezing noted throughout. Not labored breathing. ABDOMEN/GI: Bowel sounds present in all 4 quadrants. No tenderness to palpation throughout. NEUROLOGICAL: Higher mental function: The patient is awake, alert, oriented to self, place and time. Patient is following commands. No aphasia and no neglect. Good repetition. Cranial nerves: The pupils are round, equal and reactive to light and accommodation. Visual aldridge are full to confrontation throughout. Extraocular movement is intact no nystagmus is noted. Facial sensation is normal to touch throughout. The facial strength is normal throughout. Hearing is normal bilaterally to hand rub. Tongue is midline and moved [id number] without any difficulty. No dysarthria is noted. Shoulder shrug is normal bilaterally. Motor: Gait is deferred. The strength is 5 over 5 throughout. Normal tone and bulk. Cerebellum: Normal finger to nose heel to price bilaterally. Sensation: Sensation is normal to touch throughout. Reflexes (right/left): 2+ throughout. Plantars are mute bilaterally. Results - Laboratory Findings CBC and BMP: 07/22/21 15:29 07/22/21 15:29 Abnormal Lab Findings: Abnormal Labs 07/22/21 15:29 Free T3 pg/mL 2.5 L Assessment and Plan Assessment: * Fall episode with unsteady gait and reported expressive aphasia. Rule out any reoccuronce of brain mass or any stroke (seems unlikely stroke). Cannot rule out seizure (especially with history of encephalomalacia over left fronto/parietal which can cause expressive aphasia, but per patient her typical seizure is jerking of right upper extremity). * History of glioblatoma multiform (diagnosed in 2002) over left fronto/parietalside s/p surgery, radiation and chemotherapy, * History of seizure (from description of patient has focal motor seizure without loss of consciousness) Plan: MRI of the brain and MRA of the head is ordered by the primary team is pending. Patient agreed on getting EEG as outpatient and not inpatient (she feels highly it was not seizure but I notified her it was for her benefit to rule out any seizure-like activity). Will get 2 1/2 hour ambulatory EEG and it will be coordinated by technical fellow. Routine also order 2-D echo and lipid panel. She is on home medication of Zonegran 200 mg daily at bedtime and that is continued. Continue neuro checks PT and OT are consulted. I consulted speech therapy Defer the rest of the medical management to the primary team. Upon discharge the patient needs to follow-up with her Neurologist (Dr. Liu) and patient stated she has an appointment next week. Continue to follow-up with her Neuro-Oncologist at [facility]. The plan is discussed with the patient and her nurse. Thank you for the consultation. Alejandro Aleman M.D. Neuro-hospitalist Time with Patient: Greater than 30
--- NOTE | 2021-07-23 11:56 | MR ---
EXAMINATION TYPE: MR brain wo/w [facility] wo/wcon DATE OF EXAM: 07/23/2021 COMPARISON: MRI brain October 08, 2013. CT brain from yesterday HISTORY: TIA/CVA, Expressive aphasia, unsteady gait, weakness, hx of glioblastoma x 17 years TECHNIQUE: Multiplanar, multisequence images of the brain and brainstem is performed without and with IV contras t, utilizing 5.5 mL intravenous Gadavist . FINDINGS: Diffusion weighted images demonstrate no evidence of a recent infarct or other diffusion ab normality. Artifact from high left frontal craniotomy redemonstrated. The ventricular system and cist ernal spaces are normal in size and appearance. The brain volume is age appropriate. Focal and confl uent areas of T2 hyperintensity throughout the white matter bilaterally greatest superiorly and great er on the left side are redemonstrated. Some few scattered foci of low signal on T2 and T2 star-weigh maki images without corresponding calcifications on CT are felt to reflect areas of intraparenchymal b lood product show no significant interval change from 2014 MRI. No new enhancement or enhancing nora s identified. Midline structures demonstrate normal morphology. The craniocervical junction appears within normal limits. The dural venous sinuses appear patent. The visualized sinuses are clear and the globes are intact. IMPRESSION: Overall stable findings from 2014 MRI suggesting posttreatment changes. No new suspicious enhancement to suggest neoplastic recurrence. MRA NECK w/wo FINDINGS: Normal three-vessel origin from the aortic arch. No significant plaque or stenosis in the common or i nternal carotid arteries bilaterally including at the level of carotid bulbs. Patent external carotid arteries without significant stenosis. There is dominant left vertebral artery. Vertebral arteries are patent to basilar junction without si gnificant stenosis. IMPRESSION: No significant focal stenosis in common or internal carotid arteries bilaterally.
[2021-07-23 13:30] LABS: Chol/HDL Ratio 3.65 Ratio; LDL Cholesterol,Calculated 124.3 mg/dL (0.0-131.0); VLDL Calculation 13.72 mg/dL (5.00-40.00)
[2021-07-23 16:10] VITALS: BP 107/71; PULSE 73; RESP 17; TEMP 98.2
--- NOTE | 2021-07-23 17:51 | ECHOF ---
Referral Reason:Possible TIA MEASUREMENTS -------- HEIGHT: 165.1 cm WEIGHT: 56.3 kg BP: 92/55 RVIDd: 3.3 cm (< 3.3) IVSd: 1.1 cm (0.6 - 1.1) LVIDd: 2.8 cm (3.9 - 5.3) LVPWd: 1.2 cm (0.6 - 1.1) IVSs: 1.4 cm LVIDs: 1.9 cm LVPWs: 1.7 cm LAESV Index (A-L): 9.81 ml/m Ao Diam: 3.0 cm (2.0 - 3.7) MV E Juan: 0.97 m/s MV DecT: 199 ms MV A Juan: 0.84 m/s MV E/A Ratio: 1.15 FINDINGS -------- Sinus rhythm. This was a technically adequate study. The left ventricular size is normal. There is borderline concentric left ventricular hypertrophy. Overall left ventricular systolic function is normal with, an EF between 55 - 60 %. The diastolic filling pattern is normal for the age of the patient 8.16. The right ventricle is normal in size. Normal LA size by volume 22+/-6 ml/m2. The right atrial size is normal. Interatrial and interventricular septum intact. The aortic valve is trileaflet, and appears structurally normal. No aortic stenosis or regurgitation. The mitral valve is normal. There is trace mitral regurgitation. The tricuspid valve appears structurally normal. Mild tricuspid regurgitation present. Right vent ricular systolic pressure is normal at < 35 mmHg. The right ventricular systolic pressure, as measu red by Doppler, is {RVSP}. The pulmonic valve was not well visualized. There is no pulmonic regurgitation present. The aortic root size is normal. Normal inferior vena cava with normal inspiratory collapse consistent with estimated right atrial pre ssure of 5 mmHg. There is a small pericardial effusion is located near the right ventricle. CONCLUSIONS -------- 1. There is borderline concentric left ventricular hypertrophy. 2. Overall left ventricular systolic function is normal with, an EF between 55 - 60 %. 3. Normal LA size by volume 22+/-6 ml/m2. 4. The aortic valve is trileaflet, and appears structurally normal. No aortic stenosis or regurgitati on. 5. There is trace mitral regurgitation. 6. Mild tricuspid regurgitation present. 7. There is a small pericardial effusion is located near the right ventricle. ASSISTIVE TECHNOLOGY TRAINER: Janis Richmond RDCS
--- NOTE | 2021-07-23 19:41 | P.HPIM ---
History of Present Illness H&P Date: 07/23/21 Chief Complaint: Gait disturbance/expressive aphasia 56-year-old female with significant past medical history of glioblastoma in 2002 with chemotherapy and radiation, seizure disorder, osteoporosis, GERD/reflux, gait disturbance, and additional comorbidities is admitted to the hospital for recent fall 3 days prior to admission with subsequent expressive aphasia, increased gait disturbance, and increased memory loss. Patient had extensive diagnostic workup in emergency department consisting of a CT of the head and face; radiologist's dictation some progression and abnormal white matter density recommendation of MRI. CBC unremarkable, CMP unremarkable, and coagulation studies unremarkable. Chest x- ray no acute cardiopulmonary processes noted. Consultation with neurology for possible TIA/CVA and possible breakthrough seizure. Ordered echocardiogram and MRI of brain and neck. Review of Systems Constitutional: Reports as per HPI Ears, nose, mouth and throat: Reports as per HPI Cardiovascular: Reports as per HPI Respiratory: Reports as per HPI Gastrointestinal: Reports as per HPI Genitourinary: Reports as per HPI Menstruation: Reports as per HPI Musculoskeletal: Reports as per HPI Integumentary: Reports as per HPI Neurological: Reports as per HPI Psychiatric: Reports as per HPI Endocrine: Reports as per HPI Hematologic/Lymphatic: Reports as per HPI Allergic/Immunologic: Reports as per HPI Past Medical History Past Medical History: Cancer, Seizure Disorder Additional Past Medical History / Comment(s): Brain Tumor - 2002. Chemotherapy and Radiation for brain tumor. Osteoporosis History of Any Multi-Drug Resistant Organisms: None Reported Past Surgical History: Cholecystectomy, Hysterectomy Additional Past Surgical History / Comment(s): Brain surgery for Cancer; Colonoscopy Past Anesthesia/Blood Transfusion Reactions: No Reported Reaction Past Psychological History: No Psychological Hx Reported Smoking Status: Never smoker Past Alcohol Use History: Occasional Past Drug Use History: None Reported - Past Family History Father Family Medical History: Cancer Additional Family Medical History / Comment(s): Brain tumor Medications and Allergies Home Medications and Allergies Comment(s): Medications and ALLERGIES reviewed Home Medications Medication Instructions Recorded Confirmed Type clonazePAM [KlonoPIN] 0.5 mg PO HS 10/11/16 07/22/21 History Cyclobenzaprine [Flexeril] 10 mg PO HS 07/02/19 07/22/21 History Amitriptyline HCl 30 mg PO HS 10/21/19 07/22/21 History Zonisamide [Zonegran] 200 mg PO HS 04/09/20 07/22/21 History Calcium Carbonate/Vitamin D3 1 tab PO DAILY 07/22/21 07/22/21 History [Calcium 600 mg-Vit D3 5 mcg (200 unit)] Citalopram Hydrobromide [CeleXA] 40 mg PO HS 07/22/21 07/22/21 History Famotidine [Pepcid] 20 mg PO BID 07/22/21 07/22/21 History Levothyroxine Sodium [Synthroid] 75 mcg PO DAILY 07/22/21 07/22/21 History Allergies Allergy/AdvReac Type Severity Reaction Status Date / Time lamotrigine [From Lamictal] Allergy Rash/Hives Verified 07/22/21 17:41 phenytoin sodium Allergy Anaphylaxis Verified 07/22/21 17:41 [From Dilantin] phenytoin sodium extended Allergy Anaphylaxis Verified 07/22/21 17:41 [From Dilantin] Physical Exam Vitals: Vital Signs Temp Pulse Resp BP Pulse Ox 07/23/21 15:00 98.2 F 73 17 107/71 97 07/23/21 14:00 73 07/23/21 08:00 69 18 07/23/21 07:00 98.1 F 69 18 107/65 99 07/23/21 01:40 98.3 F 61 16 92/55 98 07/22/21 21:49 65 16 07/22/21 21:00 98.2 F 65 16 110/73 98 Intake and Output 07/23/21 07/23/21 07/23/21 06:59 14:59 22:59 Other: Voiding Method Toilet # Voids 2 3 - Constitutional General appearance: cooperative - EENT Eyes: EOMI, PERRLA - Neck Neck: normal ROM Carotids: bilateral: upstroke normal Thyroid: bilateral: normal size - Respiratory Respiratory: bilateral: CTA (Anterior and posterior lung aldridge) - Cardiovascular Sinus rhythm Heart rate: 74 Rhythm: regular Heart sounds: normal: S1, S2 radial pulse Peripheral Pulses: bilateral: Normal dorsalis pedis Peripheral Pulses: bilateral: Normal - Gastrointestinal General gastrointestinal: normal bowel sounds, soft - Neurologic Neurologic: focal deficits - Musculoskeletal Musculoskeletal: generalized weakness - Psychiatric Psychiatric: A&O x's 3, appropriate affect, intact judgment & insight Results CBC & Chem 7: 07/22/21 15:29 07/22/21 15:29 Labs: Abnormal Lab Results - Last 24 Hours (Table) 07/22/21 Range/Units 15:29 Free T3 pg/mL 2.5 L (2.8-5.3) pg/ml Chest x-ray: report reviewed CT scan - chest: report reviewed Thrombosis Risk Factor Assmnt - Choose All That Apply Any of the Below Risk Factors Present?: Yes Each Factor Represents 1 point: Age 41-60 years Other Risk Factors: No Other congenital or acquired thrombophilia - If yes, enter type in comment: No Thrombosis Risk Factor Assessment Total Risk Factor Score: 1 Thrombosis Risk Factor Assessment Level: Low Risk Assessment and Plan Assessment: Fall episode with unsteady gait and reported expressive aphasia History of glioblastoma in 2002 with chemotherapy and radiation seizure disorder osteoporosis GERD/reflux gait disturbance Aches anxiety and depression I'll code Plan: Fall with subsequent unsteady gait and expressive aphasia, possible abnormality of the CT brain and white matter recommended MRI by radiologist, will obtain MRI/MRA of brain and neck, echocardiogram, consultation with neurology for recommendations Gait disturbance, consult physical therapy and occupational therapy for re commendations Continue home medications Continue to monitor vital signs and diagnostic testing Further recommendations come based on patient's clinical condition Likely discharged today after neurology clearance Time with Patient: Greater than 30
--- NOTE | 2021-07-23 19:47 | P.DS ---
Providers Date of admission: 07/22/21 18:12 Expected date of discharge: 07/23/21 Attending physician: Angel Bains Consults: 07/22/21 17:39 Consult Physician Urgent Consulting Provider: Alejandro Aleman Consult Reason/Comments: Unsteady gait, expressive aphasia Do you want consulting provider notified?: Yes Primary care physician: Angel Bains Hospital Course: 56-year-old female with significant past medical history of glioblastoma in 2002 with chemotherapy and radiation, seizure disorder, osteoporosis, GERD/reflux, gait disturbance, and additional comorbidities is admitted to the hospital for recent fall 3 days prior to admission with subsequent expressive aphasia, increased gait disturbance, and increased memory loss. Patient had extensive diagnostic workup in emergency department consisting of a CT of the head and face; radiologist's dictation some progression and abnormal white matter density recommendation of MRI. CBC unremarkable, CMP unremarkable, and coagulation studies unremarkable. Chest x- ray no acute cardiopulmonary processes noted. Consultation with neurology for possible TIA/CVA and possible breakthrough seizure. MRI and MRA of the brain and neck no acute abnormalities noted from previous MRI; echocardiogram normal ejection fraction no changes from previous echocardiogram. Consultation with neurology recommended walking EEG, patient deferred to outpatient with Dr. Liu to have test performed. Physical therapy/occupational therapy recommendation for continuous physical therapy due to severe gait disturbance, patient will be agreeable to follow-up with physical therapy and outpatient basis. Patient will be discharged in stable condition with a guarded prognosis due to multiple comorbidities Assessment: Fall episode with unsteady gait and reported expressive aphasia History of glioblastoma in 2002 with chemotherapy and radiation seizure disorder osteoporosis GERD/reflux gait disturbance Mixed anxiety and depression Full code Health Concerns: Multiple comorbidities Complexity of medical treatment plan Pertinent Studies: MRI/MRA of the brain and neck see dictation from radiology Echocardiogram see dictation from cardiology Procedures: None performed during hospital stay Patient Condition at Discharge: Stable Plan - Discharge Summary Discharge Rx Participant: Yes New Discharge Prescriptions: Continue clonazePAM [KlonoPIN] 0.5 mg PO HS Cyclobenzaprine [Flexeril] 10 mg PO HS Amitriptyline HCl 30 mg PO HS Zonisamide [Zonegran] 200 mg PO HS Famotidine [Pepcid] 20 mg PO BID Citalopram Hydrobromide [CeleXA] 40 mg PO HS Calcium Carbonate/Vitamin D3 [Calcium 600 mg-Vit D3 5 mcg (200 unit)] 1 tab PO DAILY Levothyroxine Sodium [Synthroid] 75 mcg PO DAILY Discharge Medication List clonazePAM [KlonoPIN] 0.5 mg PO HS 10/11/16 [History] Cyclobenzaprine [Flexeril] 10 mg PO HS 07/02/19 [History] Amitriptyline HCl 30 mg PO HS 10/21/19 [History] Zonisamide [Zonegran] 200 mg PO HS 04/09/20 [History] Calcium Carbonate/Vitamin D3 [Calcium 600 mg-Vit D3 5 mcg (200 unit)] 1 tab PO DAILY 07/22/21 [History] Citalopram Hydrobromide [CeleXA] 40 mg PO HS 07/22/21 [History] Famotidine [Pepcid] 20 mg PO BID 07/22/21 [History] Levothyroxine Sodium [Synthroid] 75 mcg PO DAILY 07/22/21 [History] Follow up Appointment(s)/Referral(s): Angel Bains MD [Primary Care Provider] - 1-2 days Patient Instructions/Handouts: Expressive Aphasia Exercises (DC), How to Choose and Use a Walker (GEN), Fall Prevention (DC), Glioblastoma (DC) Discharge/Stand Alone Forms: Help In The Home
== END 2021-07-23 19:28 ==
LOC: EC 14:53 → 6NMEDSUR 18:12
PROVIDERS: ADMIT Family Medicine; ATTEND Family Medicine
DX: S00.83XA Contusion of other part of head, initial encounter (principal); W18.30XA Fall on same level, unspecified, initial encounter; W22.09XA Striking against other stationary object, initial encounter; R26.81 Unsteadiness on feet; M81.0 Age-related osteoporosis without current pathological fracture; Z20.822 Contact with and (suspected) exposure to COVID-19; R93.0 Abnormal findings on diagnostic imaging of skull and head, not elsewhere classified; R47.01 Aphasia; G93.89 Other specified disorders of brain; K21.9 Gastro-esophageal reflux disease without esophagitis; F41.8 Other specified anxiety disorders; G40.909 Epilepsy, unspecified, not intractable, without status epilepticus; R41.3 Other amnesia; Z79.890 Hormone replacement therapy; Z79.899 Other long term (current) drug therapy; Z88.8 Allergy status to other drugs, medicaments and biological substances; Z85.841 Personal history of malignant neoplasm of brain; Z92.21 Personal history of antineoplastic chemotherapy; Z92.3 Personal history of irradiation; Z90.49 Acquired absence of other specified parts of digestive tract; Z90.710 Acquired absence of both cervix and uterus; Z80.8 Family history of malignant neoplasm of other organs or systems; Y92.008 Other place in unspecified non-institutional (private) residence as the place of occurrence of the external cause
CPT/HCPCS: 99285; 36415; 93005; 93306; 97162; 97166; 92523; 84207; 84439; 84481; 80061; 80053; 82607; 82746; 84443; 84484; 85025; 85610; 85730; 82306; 87635; 71046; 70486; 70450; 70549; 70553; G0378 ×2; A9585

== ENCOUNTER 2021-11-23 23:28 | Inpatient (IN) | payer MEDICARE, BC ==
[2021-11-23] MEDS ORDERED: LORazepam 2 MG/ML INJ IV STA (23:32)
[2021-11-23] MEDS ORDERED: SODIUM CHLORIDE 0.9% 1,000 ML IV STA (23:32)
[2021-11-23] MEDS ORDERED: HYDROmorphone 1 MG/ML 1 ML SYRINGE IVP STA (23:32)
[2021-11-23] MEDS ORDERED: PROPOFOL 10 MG/ML 20 ML VIAL IV ONE (23:32)
[2021-11-23] MEDS ORDERED: DIPH,PERTUS(ACELL)TETVAC-LF 0.5 ML VIAL IM ONE (23:33)
--- NOTE | 2021-11-23 23:36 | ED ---
Lower Extremity Injury HPI - General Stated Complaint: Fall Time Seen by Provider: 11/23/21 23:31 Source: RN notes reviewed, old records reviewed Mode of arrival: EMS Limitations: no limitations - History of Present Illness Initial Comments: This is a 48-year-old female to the emergency room today. Patient presents today for evaluation regards to fall, patient follow flight of stairs and severe pain to the left knee. Unable to ambulate. Patient presents by EMS for severe left knee pain minimal bleeding from the anterior aspec8 MD Complaint: knee injury (Left) -: minutes(s) Injury: Knee: Left Type of Injury: inversion, eversion, hyperextension Place: home Severity: severe Severity scale (1-10): 10 Improves With: nothing Worsens With: weight bearing, movement, palpation Context: fall, direct blow Associated Symptoms: snap/pop sensation, numbness, unable to bear weight Treatments Prior to Arrival: splint - Related Data Home Medications Medication Instructions Recorded Confirmed clonazePAM [KlonoPIN] 0.5 mg PO HS 10/11/16 07/22/21 Cyclobenzaprine [Flexeril] 10 mg PO HS 07/02/19 07/22/21 Amitriptyline HCl 30 mg PO HS 10/21/19 07/22/21 Zonisamide [Zonegran] 200 mg PO HS 04/09/20 07/22/21 Calcium Carbonate/Vitamin D3 1 tab PO DAILY 07/22/21 07/22/21 [Calcium 600 mg-Vit D3 5 mcg (200 unit)] Citalopram Hydrobromide [CeleXA] 40 mg PO HS 07/22/21 07/22/21 Famotidine [Pepcid] 20 mg PO BID 07/22/21 07/22/21 Levothyroxine Sodium [Synthroid] 75 mcg PO DAILY 07/22/21 07/22/21 Allergies Allergy/AdvReac Type Severity Reaction Status Date / Time lamotrigine [From Lamictal] Allergy Rash/Hives Verified 07/22/21 17:41 phenytoin sodium Allergy Anaphylaxis Verified 07/22/21 17:41 [From Dilantin] phenytoin sodium extended Allergy Anaphylaxis Verified 07/22/21 17:41 [From Dilantin] Review of Systems ROS Statement: Those systems with pertinent positive or pertinent negative responses have been documented in the HPI. ROS Other: All systems not noted in ROS Statement are negative. Past Medical History Past Medical History: Cancer, Seizure Disorder Additional Past Medical History / Comment(s): Brain Tumor - 2003. Chemotherapy and Radiation for brain tumor. Osteoporosis History of Any Multi-Drug Resistant Organisms: None Reported Past Surgical History: Cholecystectomy, Hysterectomy Additional Past Surgical History / Comment(s): Brain surgery for Cancer; Colonoscopy Past Anesthesia/Blood Transfusion Reactions: No Reported Reaction Past Psychological History: No Psychological Hx Reported Smoking Status: Never smoker Past Alcohol Use History: Occasional Past Drug Use History: None Reported - Past Family History Father Family Medical History: Cancer Additional Family Medical History / Comment(s): Brain tumor General Exam General appearance: alert, in no apparent distress, anxious, in distress Head exam: Present: atraumatic, normocephalic, normal inspection Eye exam: Present: normal appearance, PERRL, EOMI. Absent: scleral icterus, conjunctival injection, periorbital swelling ENT exam: Present: normal exam, mucous membranes moist Neck exam: Present: normal inspection. Absent: tenderness, meningismus, lymphadenopathy Respiratory exam: Present: normal lung sounds bilaterally. Absent: respiratory distress, wheezes, rales, rhonchi, stridor Cardiovascular Exam: Present: regular rate, normal rhythm, normal heart sounds. Absent: systolic murmur, diastolic murmur, rubs, gallop, clicks GI/Abdominal exam: Present: soft, normal bowel sounds. Absent: distended, tenderness, guarding, rebound, rigid Extremities exam: Present: normal inspection, full ROM, normal capillary refill. Absent: tenderness, pedal edema, joint swelling, calf tenderness Back exam: Present: normal inspection Neurological exam: Present: alert, oriented X3, CN II-XII intact Psychiatric exam: Present: normal affect, normal mood Skin exam: Present: warm, dry, intact, normal color. Absent: rash Course Vital Signs 11/23/21 23:33 Temperature 98 F Pulse Rate 73 Respiratory 17 Rate Blood Pressure 160/94 O2 Sat by Pulse 97 Oximetry - Reevaluation(s) Reevaluation #1: 11/23/21 23:35 medical record is reviewed Reevaluation #2: 11/24/21 04:32 Patient has adequate pain control, left knee is placed in knee immobilizer and cleaned Patient found to have right knee fracture Procedures - Orthopedic Joint Reduction Joint #1 Consent Obtained: verbal consent Side: left Joint Reduction Location: knee/patella Technique Used: traction/counter-traction, direct manipulation Post-Reduction Neuro Exam: intact Post-Reduction Vascular Exam: intact Post Reduction X-Ray Obtained: Yes Post Reduction X-Ray Results: reduced Splint Applied: Yes Patient Tolerated Procedure: well Medical Decision Making - Medical Decision Making 56 female to the emergency department for evaluation. Patient did sustain patellar fracture transverse patient placed in knee immobilizer and patella fracture is reduced. Patient given pain control feeling improved. Patient also noted to have right fibular head fracture - Lab Data Result diagrams: 11/23/21 23:53 11/23/21 23:53 Lab Results 11/23/21 11/23/21 11/23/21 Range/Units 23:53 23:53 23:53 WBC 4.4 (3.8-10.6) k/uL RBC 3.89 (3.80-5.40) m/uL Hgb 12.0 (11.4-16.0) gm/dL Hct 36.1 (34.0-46.0) % MCV 92.9 (80.0-100.0) fL MCH 30.8 (25.0-35.0) pg MCHC 33.2 (31.0-37.0) g/dL RDW 13.1 (11.5-15.5) % Plt Count 215 (150-450) k/uL MPV 6.7 Neutrophils % 60 % Lymphocytes % 30 % Monocytes % 5 % Eosinophils % 3 % Basophils % 1 % Neutrophils # 2.6 (1.3-7.7) k/uL Lymphocytes # 1.3 (1.0-4.8) k/uL Monocytes # 0.2 (0-1.0) k/uL Eosinophils # 0.1 (0-0.7) k/uL Basophils # 0.0 (0-0.2) k/uL PT 9.9 (9.0-12.0) sec INR 0.9 (<1.2) APTT 22.4 (22.0-30.0) sec Sodium 135 L (137-145) mmol/L Potassium 3.9 (3.5-5.1) mmol/L Chloride 104 (98-107) mmol/L Carbon Dioxide 26 (22-30) mmol/L Anion Gap 5 mmol/L BUN 17 (7-17) mg/dL Creatinine 0.98 (0.52-1.04) mg/dL Est GFR (CKD-EPI)AfAm 74 (>60 ml/min/1.73 sqM) Est GFR (CKD-EPI)NonAf 64 (>60 ml/min/1.73 sqM) Glucose 133 H (74-99) mg/dL Calcium 9.4 (8.4-10.2) mg/dL Phosphorus 3.2 (2.5-4.5) mg/dL Magnesium 2.6 H (1.6-2.3) mg/dL Total Bilirubin 0.3 (0.2-1.3) mg/dL AST 28 (14-36) U/L ALT 24 (4-34) U/L Alkaline Phosphatase 91 (38-126) U/L Troponin I (0.000-0.034) ng/mL Total Protein 6.5 (6.3-8.2) g/dL Albumin 3.9 (3.5-5.0) g/dL Serum Alcohol <10 mg/dL 11/23/21 Range/Units 23:53 WBC (3.8-10.6) k/uL RBC (3.80-5.40) m/uL Hgb (11.4-16.0) gm/dL Hct (34.0-46.0) % MCV (80.0-100.0) fL MCH (25.0-35.0) pg MCHC (31.0-37.0) g/dL RDW (11.5-15.5) % Plt Count (150-450) k/uL MPV Neutrophils % % Lymphocytes % % Monocytes % % Eosinophils % % Basophils % % Neutrophils # (1.3-7.7) k/uL Lymphocytes # (1.0-4.8) k/uL Monocytes # (0-1.0) k/uL Eosinophils # (0-0.7) k/uL Basophils # (0-0.2) k/uL PT (9.0-12.0) sec INR (<1.2) APTT (22.0-30.0) sec Sodium (137-145) mmol/L Potassium (3.5-5.1) mmol/L Chloride (98-107) mmol/L Carbon Dioxide (22-30) mmol/L Anion Gap mmol/L BUN (7-17) mg/dL Creatinine (0.52-1.04) mg/dL Est GFR (CKD-EPI)AfAm (>60 ml/min/1.73 sqM) Est GFR (CKD-EPI)NonAf (>60 ml/min/1.73 sqM) Glucose (74-99) mg/dL Calcium (8.4-10.2) mg/dL Phosphorus (2.5-4.5) mg/dL Magnesium (1.6-2.3) mg/dL Total Bilirubin (0.2-1.3) mg/dL AST (14-36) U/L ALT (4-34) U/L Alkaline Phosphatase (38-126) U/L Troponin I <0.012 (0.000-0.034) ng/mL Total Protein (6.3-8.2) g/dL Albumin (3.5-5.0) g/dL Serum Alcohol mg/dL - EKG Data -: EKG Interpreted by Me (EKG sinus rhythm 70 OK 164 QRS 92 QTC 438) - Radiology Data Radiology results: report reviewed (X-ray left knee shows significant patella fracture with dislocation, CT left knee shows same with improvement, chest x- rays negative, right knee x-ray shows positive fibular head fracture, CT brain C-spine negative for traumatic injury), image reviewed Disposition Clinical Impression: Fall, Open fracture of left patella, Fracture of right proximal fibula, Unsteady gait Disposition: ADMITTED IP TO THIS [facility] Condition: Good Is patient prescribed a controlled substance at d/c from ED?: No Referrals: Angel Bains MD [Primary Care Provider] - 1-2 days
--- NOTE | 2021-11-23 23:57 | XR ---
EXAMINATION TYPE: XR chest 1V DATE OF EXAM: 11/23/2021 COMPARISON: 07/22/2021 HISTORY: Weakness TECHNIQUE: FINDINGS: Heart is normal. Lungs are clear of infiltrate. There is no heart failure. There are no hil ar masses. Bony thorax is intact. IMPRESSION: No active cardiopulmonary disease. Normal heart.
--- NOTE | 2021-11-24 | XR ---
EXAMINATION TYPE: XR knee limited LT DATE OF EXAM: 11/23/2021 COMPARISON: NONE HISTORY: Fell down the stairs. Pain. TECHNIQUE: Single view FINDINGS: A single lateral view shows transverse fracture through the body of the patella. There is s eparation of the fragments 5.5 cm. The distal femur and proximal tibia appear intact. There is small amount of air above the patella consistent with laceration and air in the joint space. IMPRESSION: Transverse fracture through the patella with significant separation of the fragments.
[2021-11-24 00:31] LABS: Basophils % (A) 1 %; Eosinophils # (A) 0.1 k/uL (0-0.7); Eosinophils % (A) 3 %; HCT 36.1 % (34.0-46.0); Lymphocytes # (A) 1.3 k/uL (1.0-4.8); Lymphocytes % (A) 30 %; MCH 30.8 pg (25.0-35.0); MCHC 33.2 g/dL (31.0-37.0); MCV 92.9 fL (80.0-100.0); Mean Platelet Volume 6.7; Monocytes # (A) 0.2 k/uL (0-1.0); Monocytes % (A) 5 %; Neutrophils # (A) 2.6 k/uL (1.3-7.7); Neutrophils % (A) 60 %; Platelet Count 215 k/uL (150-450); RBC 3.89 m/uL (3.80-5.40); RDW 13.1 % (11.5-15.5); WBC 4.4 k/uL (3.8-10.6)
[2021-11-24 00:43] LABS: ALT 24 U/L (4-34); AST 28 U/L (14-36); African American GFR (CKD) 74 (>60 ml/min/1.73 sqM); Albumin 3.9 g/dL (3.5-5.0); Alcohol <10 mg/dL; Alkaline Phosphatase 91 U/L (38-126); Anion Gap 5 mmol/L; Blood Urea Nitrogen 17 mg/dL (7-17); Calcium 9.4 mg/dL (8.4-10.2); Carbon Dioxide 26 mmol/L (22-30); Chloride 104 mmol/L (98-107); Glucose 133 mg/dL (74-99); Magnesium 2.6 mg/dL (1.6-2.3); Non-African American GFR(CKD) 64 (>60 ml/min/1.73 sqM); Phosphorus 3.2 mg/dL (2.5-4.5); Potassium 3.9 mmol/L (3.5-5.1); Sodium 135 mmol/L (137-145); Total Bilirubin 0.3 mg/dL (0.2-1.3); Total Protein 6.5 g/dL (6.3-8.2)
[2021-11-24 00:54] LABS: INR 0.9 (<1.2); Prothrombin Time 9.9 sec (9.0-12.0)
[2021-11-24 00:55] LABS: Partial Thromboplastin Time 22.4 sec (22.0-30.0)
--- NOTE | 2021-11-24 01:31 | XR ---
EXAMINATION TYPE: XR knee limited LT DATE OF EXAM: 11/24/2021 COMPARISON: Yesterday HISTORY: Postreduction TECHNIQUE: 2 views FINDINGS: There is comminuted transverse fracture through the patella. There is separation of the fra gments 2 cm. There is small amount of soft tissue air about the patella consistent with open fracture and involvement of the knee joint space. The distal femur and proximal tibia are intact. IMPRESSION: Open fracture of the patella with improved positioning compared to initial exam.
--- NOTE | 2021-11-24 01:44 | CT ---
EXAMINATION TYPE: CT brain cspine wo con DATE OF EXAM: 11/24/2021 COMPARISON: CT brain 07/22/2021 HISTORY: FALL Neck pain. Headache CT DLP: 1317.8 mGycm Automated exposure control for dose reduction was used. Images of the brain and cervical spine obtained without contrast. Ventricles have normal size. There is no mass effect or midline shift. There is no sign of intracrani al hemorrhage. There is some hypodensity in the left parietal lobe white matter. There is 7 mm hypode nsity that could be old lacunar infarct left posterior parietal lobe. There is old left parietal cran iotomy defect. The skull base is intact. There is normal aeration of the mastoid sinuses. The cervical vertebra have normal alignment. There is some degenerative disc space narrowing at C5-6 and C6-7 with spurring of the endplates. Facet joints are intact. There is mild hypertrophic facet ar thropathy. There is no evidence of focal bone destruction. IMPRESSION: There is some hypodensity left parietal lobe consistent with some encephalomalacia not changed compar ed to old exam. Previous surgery. No acute intracranial abnormality. No evidence of acute traumatic i njury. Mild spondylotic changes in the cervical spine. No fracture.
--- NOTE | 2021-11-24 02:59 | CT ---
EXAMINATION TYPE: CT knee LT wo con DATE OF EXAM: 11/24/2021 COMPARISON: None HISTORY: PATELLA FX. CT DLP: 151.5 mGycm Automated exposure control for dose reduction was used. Images obtained from the mid femur to the mid tibia without contrast. There is comminuted fracture of the body of the patella. There is transverse fracture line and the fr agments are 1.6 cm. There is air bubbles in the soft tissues anterior to the patella and al so within the fracture line. There is small joint effusion. There are small air bubbles within the k nee joint space posterior to the lower patella fragment. There is also air bubbles in the knee joint around the anterior and posterior cruciate ligaments. The medial and lateral joint spaces are fairly normal. The proximal tibia and the distal femur appear intact. Proximal fibula is intact. IMPRESSION: Displaced comminuted transverse fracture of the patella. There is hemopneumarthrosis. Soft tissue ant erior laceration deformity and soft tissue air bubbles seen in the subcutaneous fat anterior to the f racture.
[2021-11-24] MEDS ORDERED: SODIUM CHLORIDE 0.9% 1,000 ML IV ONE (03:22)
[2021-11-24] MEDS ORDERED: ONDANSETRON 4 MG/2 ML VIAL IVP PRN (03:24)
--- NOTE | 2021-11-24 03:26 | CT ---
EXAMINATION TYPE: CT knee RT wo con DATE OF EXAM: 11/24/2021 COMPARISON: None HISTORY: fall, trauma CT DLP: 151.5 mGycm Automated exposure control for dose reduction was used. Images obtained from the mid femur to the mid tibia without contrast. There is oblique nondisplaced fracture through the head of the fibula. There is minimal cortical thompson ling. The proximal tibia is intact. The distal femur is intact. No evidence of knee joint effusion. T he patella is intact. No evidence of soft tissue mass. I see no focal bone destruction. IMPRESSION: Acute oblique nondisplaced fracture of the head of the fibula consistent with traumatic injury.
--- NOTE | 2021-11-24 05:13 | XR ---
EXAMINATION TYPE: XR knee limited RT DATE OF EXAM: 11/24/2021 COMPARISON: NONE HISTORY: Knee pain TECHNIQUE: 2 views FINDINGS: There is nondisplaced oblique fracture through the fibula. The patella is intact. Medial an d lateral joint space of the knee appear intact. There is no sign of knee joint effusion. IMPRESSION: Nondisplaced acute fracture of the head of the fibula.
--- NOTE | 2021-11-24 06:39 | XR ---
EXAMINATION TYPE: XR tibia fibula RT DATE OF EXAM: 11/24/2021 COMPARISON: None HISTORY: Pain TECHNIQUE: 3 views FINDINGS: There is nondisplaced fracture through the head of the fibula. The knee joint appears anato camilo. Ankle mortise is anatomic. There is rounded metallic density in the posterior soft tissues of th e lower tibia consistent with a BB foreign body. This measures 4 mm in diameter. There is Achilles ca lcaneal spurring. IMPRESSION: Nondisplaced fracture of the head of the fibula. BB foreign body in the soft tissues of p osterior lower tibia.
--- NOTE | 2021-11-24 06:56 | XR ---
EXAMINATION TYPE: XR ankle complete RT DATE OF EXAM: 11/24/2021 COMPARISON: NONE HISTORY: Fibular fracture. Pain. TECHNIQUE: 4 views FINDINGS: Ankle mortise is anatomic. I see no fracture nor dislocation. There is a 4 mm rounded metal lic density in the soft tissues posterior to the distal tibia. Joint spaces are normal. IMPRESSION: No fracture. Mild Achilles calcaneal spurring. BB foreign body noted.
[2021-11-24] MEDS: MORPHINE SULFATE 4 MG/ML SYRINGE IV PRN ×2 (09:11→12:40)
--- NOTE | 2021-11-24 09:28 | P.HPOR ---
<Sidney Naik M - Last Filed: 11/24/21 09:15> History of Present Illness H&P Date: 11/24/21 Chief Complaint: Left patellar fracture, right proximal fibular fracture, fall down stairs Patient is a 56-year-old female who was brought to [facility] by EMS on 11/23/2021 after falling down her steps at home. Upon her arrival to the hospital, multiple imaging and lab tests were done. Images demonstrated a comminuted and displaced left transverse patellar fracture with soft tissue involvement. X-rays also demonstrated a right proximal fibular fracture. Both Dr. Pablito Arrington were both contacted by the emergency room staff able to review the case. With the soft tissue involvement, patient was admitted and started on IV antibiotics. Patient was placed in bilateral knee immobilizers. Patient was admitted to [facility], she was admitted under orthopedic service. Medicine was consulted for medical management. Patient was evaluated today, she is resting in the medical/surgical floor. Patient's resting comfortably, she is in no acute distress. She admits to most discomfort in the left knee, she has some mild right knee pain at this time. Patient states that she did not lose consciousness during the fall. She cannot remember if she hit her head during the fall. Brain/cervical computed tomography scan were done, no acute abnormalities are noted. Patient denies any new onset cervical, thoracic or lumbar pain. She denies any pain involving the bilateral upper extremities. Review of Systems Constitutional: Reports as per HPI Past Medical History Past Medical History: Cancer, Seizure Disorder Additional Past Medical History / Comment(s): Brain Tumor - 2002. Chemotherapy and Radiation for brain tumor. Osteoporosis History of Any Multi-Drug Resistant Organisms: None Reported Past Surgical History: Cholecystectomy, Hysterectomy Additional Past Surgical History / Comment(s): Brain surgery for Cancer; Colonoscopy Past Anesthesia/Blood Transfusion Reactions: No Reported Reaction Past Psychological History: No Psychological Hx Reported Smoking Status: Never smoker Past Alcohol Use History: Occasional Past Drug Use History: None Reported - Past Family History Father Family Medical History: Cancer Additional Family Medical History / Comment(s): Brain tumor Medications and Allergies Home Medications Medication Instructions Recorded Confirmed Type clonazePAM [KlonoPIN] 0.5 mg PO HS 10/11/16 11/24/21 History Cyclobenzaprine [Flexeril] 10 mg PO HS 07/02/19 11/24/21 History Amitriptyline HCl 30 mg PO HS 10/21/19 11/24/21 History Zonisamide [Zonegran] 200 mg PO HS 04/09/20 11/24/21 History Calcium Carbonate/Vitamin D3 1 tab PO DAILY 07/22/21 11/24/21 History [Calcium 600 mg-Vit D3 5 mcg (200 unit)] Citalopram Hydrobromide [CeleXA] 40 mg PO HS 07/22/21 11/24/21 History Famotidine [Pepcid] 20 mg PO BID 07/22/21 11/24/21 History Levothyroxine Sodium [Synthroid] 75 mcg PO DAILY 07/22/21 11/24/21 History Acyclovir [Zovirax] 200 mg PO Q4H 11/24/21 11/24/21 History Liothyronine Sodium [Cytomel] 5 mcg PO DAILY 11/24/21 11/24/21 History SUMAtriptan succinate 6 mg SQ DAILY PRN 11/24/21 11/24/21 History cycloSPORINE 0.05% OPHTH SOLN 1 drop BOTH EYES BID 11/24/21 11/24/21 History [Restasis] traZODone HCL 100 mg PO HS 11/24/21 11/24/21 History Allergies Allergy/AdvReac Type Severity Reaction Status Date / Time lamotrigine [From Lamictal] Allergy Rash/Hives Verified 11/24/21 07:10 phenytoin sodium Allergy Anaphylaxis Verified 11/24/21 07:10 [From Dilantin] phenytoin sodium extended Allergy Anaphylaxis Verified 11/24/21 07:10 [From Dilantin] Physical Examination Left lower extremity: Immobilizer was removed for exam, there is cold and present over the anterior aspect of the knee, there is slight bloody saturation noted Range of motion of the knee was not assessed. Plantar flexion, dorsiflexion, EHL, FHL are intact. Logroll maneuver of the hip reproduces no pain Calf is soft, no tenderness with palpation No tenderness with palpation to the upper thigh, lower leg, including foot and ankle Sensory exam to light touch is intact throughout the extremity, dorsalis pedis pulses 2+ Right lower extremity: Immobilizer was removed for exam. No obvious open lesions or sores are visualized throughout the extremity. Bowel bruising present near the proximal fibula on the lateral aspect of the knee Patient demonstrates point tenderness over the proximal fibula, she's nontender in the rest of the knee, this including medial lateral patella. She is nontender to the lower leg, including medial lateral aspect of the ankle. She is nontender through the forefoot, midfoot or hindfoot. Plantar flexion, dorsiflexion, EHL, FHL are intact. Active motion is intact at the knee, it's limited to discomfort along the proximal fibula. Hip flexion is also intact. Logroll maneuver of the hip reproduces no pain. Calf is soft, no tenderness with palpation Sensory exam to light touch is intact throughout the extremity, dorsalis pedis pulses 2+ General orthopedic exam: No point tenderness appreciated in the bilateral upper extremities, full range of motion all major muscle groups of the bilateral upper extremity is. No focal neurological deficits of bilateral upper extremities Results - Labs Labs: Abnormal Lab Results - Last 24 Hours (Table) 11/23/21 Range/Units 23:53 Sodium 135 L (137-145) mmol/L Glucose 133 H (74-99) mg/dL Magnesium 2.6 H (1.6-2.3) mg/dL H & H 11/23/21 Range/Units 23:53 Hgb 12.0 (11.4-16.0) gm/dL Hct 36.1 (34.0-46.0) % Coagulation 11/23/21 Range/Units 23:53 INR 0.9 (<1.2) Result Diagrams: 11/23/21 23:53 11/23/21 23:53 - Diagnostic results Knee x-ray: report reviewed, image reviewed Knee CT: report reviewed, image reviewed Assessment and Plan Assessment: Displaced and comminuted open left transverse patellar fracture Mildly displaced right proximal fibular fracture Status post fall downstairs Other medical comorbidities Plan: Imaging: Multiple x-rays and imaging studies were reviewed, this including AP, lateral views of the right knee, AP and lateral views of the right tibia/fibula and complete set of right ankle x-rays. Images demonstrated displaced right pr oximal fibular fracture. No other osseous abnormality is appreciated around the knee. The ankle x-rays demonstrate no acute fractures or dislocations. The mortise joint remains intact, no obvious widening. Left knee x-rays and CT scans were reviewed along with reports. Images demonstrated displaced and comminuted left patellar fracture. There was subcutaneous air noted on the left knee x-rays, computed tomography scan again redemonstrated the tear both in the subcutaneous area and also inside the joint. Plan: I was able to review board detail with attending Dr. Rios both imaging studies and physical exam findings. Our plan is to proceed with surgery, more specifically an open reduction internal fixation of the left open patellar fracture. Plan for surgery on 11/24/2021. Patient was made nothing by mouth last night. Patient will remain in knee immobilizer on the left side, bandages will be left in place at this time. Continue use of the IV antibiotics every 8 hours. The immobilizer will likely be removed from the right lower extremity, consid ering use of compressive knee sleeve. We'll likely allow weightbearing as tolerated on the right lower extremity after surgery. She'll remain nonweightbearing on the left lower extremity Pain control, IV pain medication as needed, oral medication as needed with sip of water DVT prophylaxis, will likely begin aspirin or subcu medication after surgery PT/OT evaluation after surgery Medical recommendations Further recommendations to follow Time with Patient: Less than 30 <Joel Rios - Last Filed: 11/24/21 09:47> Past Medical History - Past Family History Father Family Medical History: Cancer Additional Family Medical History / Comment(s): Brain tumor Mother Family Medical History: Renal Disease Additional Family Medical History / Comment(s): Heart problems, renal failure, obesity. Physical Examination Osteopathic Statement: *. No significant issues noted on an osteopathic structural exam other than those noted in the History and Physical/Consult. Results - Labs Labs: Abnormal Lab Results - Last 24 Hours (Table) 11/23/21 Range/Units 23:53 Sodium 135 L (137-145) mmol/L Glucose 133 H (74-99) mg/dL Magnesium 2.6 H (1.6-2.3) mg/dL H & H 11/23/21 Range/Units 23:53 Hgb 12.0 (11.4-16.0) gm/dL Hct 36.1 (34.0-46.0) % Coagulation 11/23/21 Range/Units 23:53 INR 0.9 (<1.2) Result Diagrams: 11/23/21 23:53 11/23/21 23:53 Assessment and Plan Plan: Agree with above note/findings. Patient to remain NPO and will require ORIF of her comminuted open left patella fracture with I&D today. No signs of Maisonneuve ankle injury associated with right proximal fibula fracture. Con tinue antibiotics during hospital stay q 8 and anticipate DC within 24 hours after surgery and post operative Lovenox 30 q12 x 14 days for lower extremity fracture requiring prolonged post operative immobilization and history of cancer. -Joel Rios DO Orthopedic Surgeon
[2021-11-24] MEDS ORDERED: ACETAMINOPHEN TAB 325 MG TAB PO PRN (10:28)
[2021-11-24] MEDS: LEVOTHYROXINE 75 MCG TAB PO SCH (11:00)
[2021-11-24] MEDS: PANTOPRAZOLE 40 MG/10 ML VIAL IVP SCH ×2 (11:00→21:04)
[2021-11-24] MEDS: LIOTHYRONINE SODIUM 5 MCG TAB PO SCH ×2 (11:28→11:30)
[2021-11-24] MEDS: cycloSPORINE 0.05% OPHTH 0.4 ML DROPERETTE BOTH EYES SCH ×2 (11:29→21:04)
--- NOTE | 2021-11-24 13:04 | P.CONS ---
History of Present Illness - Reason for Consult Consult date: 11/24/21 Medical management Requesting physician: Joel Rios - Chief Complaint fall - History of Present Illness Patient is a pleasant 56-year-old female, presented to the emergency room following a fall. Patient states she fell down the basement stairs and and had severe left knee pain and unable to bear weight. Patient was unsure if she hit her head, head CT shows no acute intracranial abnormality or injury. Xray Imaging found left transverse patellar fracture with soft tissue involvement and right proximal fibular head fracture. Patient was admitted to Dr. Rios orth opedic surgeon. Patient has a pertinent medical history of glioblastoma in remission, residual expressive aphasia and gait disturbance from brain surgery, history of seizures, GERD, and hypothyroidism. Patient is to undergo surgery today. Chest x-ray was negative for acute process, EKG found sinus rhythm. Labs were reviewed. Patient is medically cleared for surgery. Review of Systems Constitutional: Denies chills, Denies fever Ears, nose, mouth and throat: Denies hoarseness, Denies vertigo Cardiovascular: Denies lightheadedness, Denies shortness of breath, Denies syncope Respiratory: Denies dyspnea, Denies hemoptysis, Denies wheezing Gastrointestinal: Denies abdominal pain, Denies diarrhea, Denies vomiting Genitourinary: Denies dysuria Musculoskeletal: Reports fractures, Reports frequent falls, Reports gait dysfunction (history of), Reports limitation of motion, Reports myalgias Musculoskeletal: bilateral: hip pain Integumentary: Denies change in hair/nails, Denies wounds Neurological: Denies ataxia, Denies head injury, Denies vertigo Psychiatric: Reports sleep disturbances, Denies anxiety, Denies depression Endocrine: Denies fatigue, Denies high blood sugars Hematologic/Lymphatic: Denies easy bleeding, Denies easy bruising Allergic/Immunologic: Denies allergic rhinitis, Denies wheezing Past Medical History Past Medical History: Cancer, GERD/Reflux, Seizure Disorder, Thyroid Disorder Additional Past Medical History / Comment(s): 2003 glioblastoma/brain surgery/chemo/radiation and pt states she has some expressive aphasia/gait disturbance, focal seizure since brain surgery/pt believes last seizure was in 2006, osteoporosis, hypothyroid. History of Any Multi-Drug Resistant Organisms: None Reported Past Surgical History: Cholecystectomy, Hysterectomy Additional Past Surgical History / Comment(s): Brain surgery for Cancer; EGD, colonoscopy Past Anesthesia/Blood Transfusion Reactions: No Reported Reaction Smoking Status: Never smoker - Past Family History Father Family Medical History: Cancer Additional Family Medical History / Comment(s): Brain tumor Mother Family Medical History: Renal Disease Additional Family Medical History / Comment(s): Heart problems, renal failure, obesity. Medications and Allergies Home Medications Medication Instructions Recorded Confirmed Type clonazePAM [KlonoPIN] 0.5 mg PO HS 10/11/16 11/24/21 History Cyclobenzaprine [Flexeril] 10 mg PO HS 07/02/19 11/24/21 History Amitriptyline HCl 30 mg PO HS 10/21/19 11/24/21 History Zonisamide [Zonegran] 200 mg PO HS 04/09/20 11/24/21 History Calcium Carbonate/Vitamin D3 1 tab PO DAILY 07/22/21 11/24/21 History [Calcium 600 mg-Vit D3 5 mcg (200 unit)] Citalopram Hydrobromide [CeleXA] 40 mg PO HS 07/22/21 11/24/21 History Famotidine [Pepcid] 20 mg PO BID 07/22/21 11/24/21 History Levothyroxine Sodium [Synthroid] 75 mcg PO DAILY 07/22/21 11/24/21 History Acyclovir [Zovirax] 200 mg PO Q4H 11/24/21 11/24/21 History Liothyronine Sodium [Cytomel] 5 mcg PO DAILY 11/24/21 11/24/21 History SUMAtriptan succinate 6 mg SQ DAILY PRN 11/24/21 11/24/21 History cycloSPORINE 0.05% OPHTH SOLN 1 drop BOTH EYES BID 11/24/21 11/24/21 History [Restasis] traZODone HCL 100 mg PO HS 11/24/21 11/24/21 History Allergies Allergy/AdvReac Type Severity Reaction Status Date / Time lamotrigine [From Lamictal] Allergy Rash/Hives Verified 11/24/21 12:14 phenytoin sodium Allergy Anaphylaxis Verified 11/24/21 12:14 [From Dilantin] phenytoin sodium extended Allergy Anaphylaxis Verified 11/24/21 12:14 [From Dilantin] Physical Exam Vitals: Vital Signs Temp Pulse Pulse Resp BP BP Pulse Ox 11/24/21 10:19 18 11/24/21 07:22 68 18 121/84 99 11/24/21 07:00 97.9 F 72 18 135/85 99 11/24/21 05:50 69 18 120/73 98 11/23/21 23:33 98 F 73 17 160/94 97 Intake and Output 11/23/21 11/24/21 11/24/21 22:59 06:59 14:59 Other: # Bowel Movements 1 Weight 53.977 kg 53.977 kg - Constitutional General appearance: cooperative, no acute distress, thin - EENT Eyes: EOMI, PERRLA ENT: normal oropharynx - Neck Neck: normal ROM - Respiratory Respiratory: bilateral: diminished - Cardiovascular Heart rate: 70 Rhythm: regular Heart sounds: normal: S1, S2 dorsalis pedis Peripheral Pulses: bilateral: Normal radial pulse Peripheral Pulses: bilateral: Normal - Gastrointestinal General gastrointestinal: normal bowel sounds, soft - Integumentary Bilateral lower extrem in immobilizer, unable to assess skin - Neurologic Neurologic: focal deficits - Musculoskeletal on bed rest, upper extrem movement normal - Psychiatric Psychiatric: A&O x's 3 Results CBC & Chem 7: 11/23/21 23:53 11/23/21 23:53 Labs: Abnormal Lab Results - Last 24 Hours (Table) 11/23/21 Range/Units 23:53 Sodium 135 L (137-145) mmol/L Glucose 133 H (74-99) mg/dL Magnesium 2.6 H (1.6-2.3) mg/dL Chest x-ray: report reviewed Assessment and Plan Assessment: Displaced and comminuted open left transverse patellar fracture Displaced right proximal fibular fracture Hypothyroidism History of glioblastoma, residual gait disturbance from surgery GERD History of seizure Plan: Imaging and lab work reviewed, patient is cleared medically for orthopedic surgery Physical therapy, occupational therapy and case management consult for discharge planning Follow orthopedic recommendations for multiple fractures Continue to manage pain, medication ordered Repeat labs in the morning after surgery Further recommendations to come based on patient's clinical course Time with Patient: Greater than 30
[2021-11-24] MEDS ORDERED: IV FLUID CONTINUATION 300 ML IV ONE (14:34)
[2021-11-24] MEDS ORDERED: MIDAZOLAM 2 MG/2 ML VIAL IVP ONE (15:07)
--- NOTE | 2021-11-24 15:16 | P.ANPRN ---
Procedure Note - Anesthesia - Nerve Block Performed Left Adductor Canal Single Time Out Performed: Yes ([id number]) Date of Procedure: 11/24/21 Procedure Start Time: 15:06 Procedure Stop Time: 15:10 Location of Patient: PreOp Indication: Acute Post-Operative Pain, Requested by Surgeon Sedation Type: Sedate with meaningful contact maintained Preparation: Sterile Prep Position: Supine Catheter: None Needle Types: Pajunk Needle Gauge: 21 Ultrasound used to visualize needle placement: Yes Ultrasound used to observe medication spread: Yes Injectate: 0.5% Ropivacaine (see comment for volume) (10 ML of preservative-free normal saline mixed with 10 mL of 0.5% ropivacaine) Blood Aspirated: No Pain Paresthesia on Injection Noted: No Resistance on Injection: Normal Image Stored and Saved: Yes Events: Uneventful and Well Tolerated
[2021-11-24] MEDS ORDERED: LACTATED RINGERS 1,000 ML IV ONE (15:17)
[2021-11-24] MEDS ORDERED: HYDROmorphone (PF) 1 MG/ML ONE (15:25)
[2021-11-24] MEDS ORDERED: ROPIVACAINE 5 MG/ML 30 ML VIAL ONE (15:25)
[2021-11-24] MEDS ORDERED: SODIUM CHLORIDE 0.9% (PF) 10 ML VIAL ONE (15:25)
[2021-11-24] MEDS ORDERED: SODIUM CHLORIDE 0.9% 100 ML with ceFAZolin 2,000 MG IV ONE ×2 (15:25)
[2021-11-24] MEDS ORDERED: LIDOCAINE 1% INJ 10MG/ML (20 ML MDV) ONE (15:25)
[2021-11-24] MEDS ORDERED: fentaNYL (PF) 50 MCG/ML 2 ML AMP ONE (15:25)
[2021-11-24] MEDS ORDERED: PROPOFOL 10 MG/ML 20 ML VIAL IV ONE (15:25)
[2021-11-24] MEDS ORDERED: BUPIVACAINE (PF) 0.25% 30 ML VIAL SQ ONE ×3 (16:35→17:20)
--- NOTE | 2021-11-24 19:11 | P.OP ---
Date of Procedure: 11/24/21 Preoperative Diagnosis: 1.) Left comminuted open distal third patella fracture 2.) Left knee traumatic arthrotomy Postoperative Diagnosis: 1.) Left comminuted open distal third patella fracture 2.) Left knee traumatic arthrotomy Procedure(s) Performed: 1.) Open reduction internal fixation of left distal third patella fracture, comminuted. 2.) Incision, irrigation, and debridement of nonviable bone, subcutaneous tissues for left knee traumatic arthrotomy Anesthesia: CIRILO Surgeon: Joel Rios Box Shook Patcher #1: Sidney Naik Estimated Blood Loss (ml): 25 Pathology: none sent Condition: stable Description of Procedure: This is a 56 year old female who had a fall down a stairwell and suffered a displaced left open comminuted distal third patella fracture with knee arthrotomy and a right minimally displaced proximal third fibula fracture . She received antibiotics immediately upon arrival to the ED and was admitted and taken the same day to OR for left patella fracture ORIF and left knee irrigation and debridement for her open fracture. Risks and benefits of surgery were discussed with the patient including bleeding, damage to surrounding tissue, infection, DVT, post traumatic arthritis, symptomatic hardware and need for further surgery as well as risks of anesthesia including pulmonary embolism and even and the patient wished to proceed with surgical intervention. The patient was seen in the pre-operative area by myself. Consent and H&P were completed and updated. The correct extremity was marked in the pre-operative area by myself and all other questions were answered. Operative Narrative: The patient was brought to the operating room by the department of anesthesia. They were transferred to the operating table and all leonor prominences were well padded. Non-operative lower extremity was not amendable to SCD placement due to fibula fracture, however patient will begin subcutaneous DVT prophylaxis after surgery. Pre-operative time out was performed indicating the correct patient, procedure and laterality. All in the room agreed. Pre- operative antibiotics were given prior to skin incision. The patient was then drifted off to sleep by the department of anesthesia. A nonsterile tourniquet was then applied to the operative extremity and the left lower extremity was then prepped and draped in normal sterile fashion. The operative extremity was the exsanguinated with an esmarch bandage and the tourniquet was inflated to 250mmHg. A longitudinal incision was made centered over the anterior knee with a 10 blade scalpel from the superior pole of the patella down to the tibial tubercle. Hemostasis was then performed with bovie cautery through subcutaneous tissues creating full thickness flaps. Upon deeper dissection there was a large fracture hematoma present and transverse splitting of the extensor retinaculum both medially and laterally at the site of the fracture. The knee was then irrigated copiously with sterile saline and pulse recreation facility attendant with 2 L of sterile saline followed by 1 L of Betacept. The distal fracture fragment was identified and was found to be small with extensive comminution and the fracture appeared to involve the distal 1/4 of the full size of the patella. Due to the amount of comminution and minimal bone stock of the distal fragment the choice to go forward with a Intra-osseous bone tunnels and fiberwire suture repair technique since the distal fragment was not amendable to any rigid fixation. Fracture edges were debrided with ronguer and curette to remove fracture hematoma and nonviable bone chips. A #5 Fiberwire suture was then used to insert two [place] whip stitches the patellar tendon leaving for free suture ends being passed through the small distal bone shell. Using a 2.0 drill bit, 4 longitudinal drill holes in the proximal patellar fragment were made and a suture passer was then used to pass all 4 ends of the fiberwire through the proximal pole. With the knee in full extension, a pointed reduction clamp was then applied to reduce the fracture fragments. Intra-operative fluoroscopy was used to confirm adequate reduction with acceptable articular alignment appreciated. The sutures were then tightened and tied deep to the quadriceps tendon with the knee in full extension and the knot was buried. #1 vicryl suture was then utilized to repair the torn medial and lateral extensor retinaculum and patellar retinaculum at the fracture site was repaired for added stability. Final imaging was then taken with reduction clamp removed revealing maintenance of reduction. Wound was then copiously irrigated again. Layered closure was performed with 2-0 vicryl suture subcutaneously followed by marimar on skin. 20cc of .25% bupivicaine was injected into the knee joint and subcutaneous tissues.Tourniquet was let down and the extremity had immediate normal perfusion. Aquacell dressing and compressive wrap was applied and the knee was placed in a knee immobilizer. The patient was then woken by the department of anesthesia and transferred to PACU in stable condition. Terell ARAUZ was present during the entire case to assist in fracture reduction and fixation and protection of vital neurovascular structures. Post op plan: The patient may begin immediate weight bearing as tolerated to the left lower extremity in the knee immobilizer. She is to keep the knee in full extension for 4 weeks until leonor healing is appreciated followed by gradual knee flexion at that time. She may discontinue knee immobilizer on the right side and may weight bear as tolerated on the right lower extremity. Post operative DVT prophylaxis with Lovenox 30mg BID x 14 days is ordered. She will follow up in 2 weeks for staple removal in office. Joel Rios D.O. Orthopedic Surgeon
[2021-11-24] MEDS: HYDROmorphone 0.5 MG/0.5 ML SYRINGE IVP PRN (19:32)
--- NOTE | 2021-11-24 19:33 | XR ---
EXAMINATION TYPE: XR knee limited LT DATE OF EXAM: 11/24/2021 FLUOROSCOPY Fluoroscopy time of 18 seconds was used during ORIF of left patellar fracture. I image/s document/s the procedure.
[2021-11-24] MEDS: AMITRIPTYLINE HCL 10 MG TAB PO SCH (21:04)
[2021-11-24] MEDS: CITALOPRAM HYDROBROMIDE 20 MG TAB PO SCH (21:04)
[2021-11-24] MEDS: clonazePAM 0.5 MG TAB PO SCH (21:04)
[2021-11-24] MEDS: ZONISAMIDE 100 MG CAP PO SCH (21:04)
[2021-11-24] MEDS: CYCLOBENZAPRINE 10 MG TAB PO SCH (22:34)
[2021-11-24 22:39] LABS: Appearance,Urine Clear (Clear); Bilirubin,Urine Negative (Negative); Blood,Urine Negative (Negative); Color,Urine Light Yellow; Glucose,Urine (UA) Negative (Negative); Ketones,Urine Negative (Negative); Leukocyte Esterase,Urine Negative (Negative); Nitrite,Urine Negative (Negative); Protein,Urine Negative (Negative); Specific Gravity,Urine 1.011 (1.001-1.035); Urobilinogen,Urine <2.0 mg/dL (<2.0)
[2021-11-25] MEDS: HYDROcodone/APAP 7.5-325MG 1 EACH TAB PO PRN ×4 (01:03→21:14)
[2021-11-25] MEDS: HYDROmorphone 0.5 MG/0.5 ML SYRINGE IVP PRN ×3 (02:22→23:37)
[2021-11-25] MEDS: LEVOTHYROXINE 75 MCG TAB PO SCH (05:29)
[2021-11-25] MEDS: LIOTHYRONINE SODIUM 5 MCG TAB PO SCH (05:29)
--- NOTE | 2021-11-25 06:04 | P.CONS ---
History of Present Illness - Chief Complaint Walking difficulty - History of Present Illness I had the opportunity to see patient for inpatient rehab consultation with regard to walking difficulty. Patient admitted to [facility] status post fall down flight of stairs at home November 23 resultant old left patellar as well as right proximal fibular fractures. Did undergo ORIF left patella yesterday. Postoperatively in knee immobilizer. Patient reports that she had one on the right leg previously. PT and OT prescribed. Radiology results: report reviewed (X-ray left knee shows significant patella fracture with dislocation, CT left knee shows same with improvement, chest x-rays negative, right knee x-ray shows positive fibular head fracture, CT brain C-spine negative for traumatic injury), image reviewed Previous functional history as elicited from patient: 56-year-old right-handed white female who is lives and 3 floor home with . works full-time in a patient on disability related to brain tumor. does the cooking. Patient is independent with laundry and driving around the city. Also standing shower. He was using standard cane for gait outside. PCP Dr. Melvi Bains. Denies tobacco or alcohol. Review of Systems Review of systems: ENT: Denies sneezes or discharge. Eyes: Denies discharge or photophobia. Cardiac: Denies chest pain or palpitation. Pulmonary: Denies cough or shortness of breath. Breast: Denies discharge or lumps. Gastrointestinal: Denies nausea, emesis, constipation, diarrhea. Genitourinary: Denies discharge or frequency. Musculoskeletal: Left knee pain. Soreness right lower leg. Neurologic: Denies motor or sensory change. Endocrine: Denies shakes or sweats. Oncology: Denies cancers. Dermatologic: Denies rash, itching, pruritus. ALLERGY/immunology: Denies sneezes, rashes. Past Medical History Past Medical History: Cancer, GERD/Reflux, Seizure Disorder, Thyroid Disorder Additional Past Medical History / Comment(s): 2003 glioblastoma/brain surgery/chemo/radiation and pt states she has some expressive aphasia/gait disturbance, focal seizure since brain surgery/pt believes last seizure was in 2006, osteoporosis, hypothyroid. History of Any Multi-Drug Resistant Organisms: None Reported Past Surgical History: Cholecystectomy, Hysterectomy Additional Past Surgical History / Comment(s): Brain surgery for Cancer; EGD, colonoscopy Past Anesthesia/Blood Transfusion Reactions: No Reported Reaction Smoking Status: Never smoker - Past Family History Father Family Medical History: Cancer Additional Family Medical History / Comment(s): Brain tumor Mother Family Medical History: Renal Disease Additional Family Medical History / Comment(s): Heart problems, renal failure, obesity. Medications and Allergies Home Medications Medication Instructions Recorded Confirmed Type clonazePAM [KlonoPIN] 0.5 mg PO HS 10/11/16 11/24/21 History Cyclobenzaprine [Flexeril] 10 mg PO HS 07/02/19 11/24/21 History Amitriptyline HCl 30 mg PO HS 10/21/19 11/24/21 History Zonisamide [Zonegran] 200 mg PO HS 04/09/20 11/24/21 History Calcium Carbonate/Vitamin D3 1 tab PO DAILY 07/22/21 11/24/21 History [Calcium 600 mg-Vit D3 5 mcg (200 unit)] Citalopram Hydrobromide [CeleXA] 40 mg PO HS 07/22/21 11/24/21 History Famotidine [Pepcid] 20 mg PO BID 07/22/21 11/24/21 History Levothyroxine Sodium [Synthroid] 75 mcg PO DAILY 07/22/21 11/24/21 History Acyclovir [Zovirax] 200 mg PO Q4H 11/24/21 11/24/21 History Liothyronine Sodium [Cytomel] 5 mcg PO DAILY 11/24/21 11/24/21 History SUMAtriptan succinate 6 mg SQ DAILY PRN 11/24/21 11/24/21 History cycloSPORINE 0.05% OPHTH SOLN 1 drop BOTH EYES BID 11/24/21 11/24/21 History [Restasis] traZODone HCL 100 mg PO HS 11/24/21 11/24/21 History Allergies Allergy/AdvReac Type Severity Reaction Status Date / Time lamotrigine [From Lamictal] Allergy Rash/Hives Verified 11/24/21 12:14 phenytoin sodium Allergy Anaphylaxis Verified 11/24/21 12:14 [From Dilantin] phenytoin sodium extended Allergy Anaphylaxis Verified 11/24/21 12:14 [From Dilantin] TAPE AdvReac Unknown Uncoded 11/24/21 12:57 Physical Exam Vitals: Vital Signs Temp Pulse Pulse Pulse Resp BP BP 11/25/21 02:16 98.3 F 82 14 113/69 11/24/21 18:46 79 16 127/71 11/24/21 18:30 82 16 138/70 11/24/21 18:17 89 16 129/70 11/24/21 18:03 98.1 F 83 15 126/72 11/24/21 18:01 76 16 135/74 11/24/21 17:46 70 12 126/72 11/24/21 17:31 97.6 F 76 12 125/66 11/24/21 15:06 73 18 145/70 11/24/21 14:37 97.8 F 77 18 124/75 11/24/21 14:08 98.2 F 71 16 125/75 11/24/21 14:00 16 11/24/21 12:51 97.9 F 72 18 135/85 11/24/21 10:19 18 11/24/21 07:22 68 18 121/84 11/24/21 07:00 97.9 F 72 18 135/85 Pulse Ox 11/25/21 02:16 97 11/24/21 18:46 98 11/24/21 18:30 100 11/24/21 18:17 100 11/24/21 18:03 96 11/24/21 18:01 100 11/24/21 17:46 97 11/24/21 17:31 97 11/24/21 15:06 100 11/24/21 14:37 99 11/24/21 14:08 99 11/24/21 14:00 11/24/21 12:51 99 11/24/21 10:19 11/24/21 07:22 99 11/24/21 07:00 99 Intake and Output 11/24/21 11/24/21 11/25/21 14:59 22:59 06:59 Intake Total 150 700 Output Total 25 Balance 150 675 Intake: IV 150 700 Output: Estimated Blood Loss 25 Other: Voiding Method Bedpan # Voids 1 2 # Bowel Movements 1 Weight 53.977 kg 53.977 kg Skin: Good color, texture, turgor. General: Medium build and comfortable appearance. Head: Normocephalic, atraumatic. Eyes: Symmetric. Pupils equal round. Ears: Symmetric. Hearing within normal limits. Mouth: Clear. Neck: Supple. Carotid without bruit. Cardiac: Regular rate and rhythm. Lungs: Clear anteriorly and posteriorly. Abdomen: Soft active nontender. Extremities: Normal tone. Left leg in immobilizer. Neurological: Mental status: Alert, cooperative, pleasant. Cranial nerves: Symmetric facial tone and trapezius. Motor: Normal strength and isolation both arms. Able to elevate right leg. Active movement bone ankles and toes. Sensation: Intact throughout. DTRs: Symmetric and equal throughout. Mobility: Requires physical assist for bed mobility. Results CBC & Chem 7: 11/23/21 23:53 11/23/21 23:53 Assessment and Plan (1) Fracture of right proximal fibula Current Visit: Yes Status: Acute Code(s): S82.831A - OTH FRACTURE OF UPPER AND LOWER END OF RIGHT FIBULA, INIT SNOMED Code(s): 01127513 (2) Open fracture of left patella Current Visit: Yes Status: Acute Code(s): S82.002B - UNSP FRACTURE OF LEFT PATELLA, INIT FOR OPN FX TYPE I/2 SNOMED Code(s): 483784125 (3) Hypokalemia Current Visit: No Status: Acute Code(s): E87.6 - HYPOKALEMIA SNOMED Code(s): 75143635 (4) Syncope Current Visit: No Status: Acute Code(s): R55 - SYNCOPE AND COLLAPSE SNOMED Code(s): 150069975 Plan: Comments and plan: Patient status post surgery yesterday. PT and OT yet to start. Insurance will require therapy notes for consideration of inpatient rehab. At this time would anticipate mobility problems due to fracture left knee and right lower leg (bilateral lowers).
--- NOTE | 2021-11-25 07:52 | FL ---
Fluoroscopy History: Patellar fracture Lt patella fx. ORIF. 18 sec fl time. [address] Rios.
[2021-11-25] MEDS: PANTOPRAZOLE 40 MG/10 ML VIAL IVP SCH (08:09)
[2021-11-25] MEDS: ENOXAPARIN 40 MG/0.4 ML SYRINGE SQ SCH (08:09)
[2021-11-25] MEDS: AMITRIPTYLINE HCL 10 MG TAB PO SCH (08:10)
[2021-11-25] MEDS: CALCIUM CARB-VIT D 500 MG-5 MCG TAB PO SCH (08:10)
[2021-11-25] MEDS: cycloSPORINE 0.05% OPHTH 0.4 ML DROPERETTE BOTH EYES SCH ×2 (08:12→20:12)
[2021-11-25] MEDS: HYDROmorphone 1 MG/ML 1 ML SYRINGE IVP PRN ×4 (10:03→20:20)
[2021-11-25] MEDS ORDERED: HYDROcodone/APAP 7.5-325MG 1 EACH TAB PO PRN (10:39)
--- NOTE | 2021-11-25 10:47 | P.PN ---
Subjective Progress Note Date: 11/25/21 Principal diagnosis: Status post ORIF left patellar fracture, minimally displaced right proximal fibular fracture Patient evaluated at bedside, she is in quite a bit of distress. She states that one total arms going off on her IV which was causing her a lot of anxiety. She states that from her previous brain tumor and surgery she is very sensitive to sounds. She is in quite a bit of pain also. Nursing was in the room today assessing this, we will work on adjusting her pain medications for better pain control. She currently denies any headaches, lightheadedness, chest pain or shortness of breath. Objective - Vital Signs Vital signs: Vital Signs Temp 98.6 F 11/25/21 06:53 Pulse 82 11/25/21 06:53 Resp 16 11/25/21 06:53 BP 114/71 11/25/21 06:53 Pulse Ox 100 11/25/21 06:53 Intake & Output 11/24/21 11/25/21 11/25/21 18:59 06:59 18:59 Intake Total 850 Output Total 25 300 Balance 825 -300 Weight 53.977 kg Intake: IV 850 Output: Urine 300 Estimated Blood Loss 25 Other: Voiding Method Bedpan # Voids 2 1 # Bowel Movements 1 - Exam Left lower extremity: Immobilizer was removed at bedside today for exam. The Mario bandage was moved away from the incision. The operative foam dressing is in good position and condition, there is minimal spotting noted. Minimal soft tissue swelling present over the anterior aspect of the knee. The calf is soft, no tenderness with palpation. Plantar flexion, dorsiflexion, EHL, FHL are intact. Her sensory exam light touch is intact throughout the extremity. Her dorsalis pedis pulses 2+ - Labs CBC & Chem 7: 11/23/21 23:53 11/23/21 23:53 Assessment and Plan Assessment: Postoperative day #1 status post ORIF left patellar fracture Mildly displaced right proximal fibular fracture Status post fall downstairs Other medical comorbidities Plan: t. Plan: Pain control, did adjust [place] 7.5 mg/325 mg to 1-2 tablets every 6 hours. Dilaudid is also ordered, recommend using the 1 mg dose at this time, also have 0.5 mg available. DVT prophylaxis, continue subcu medication during inpatient stay PT/OT evaluation, nonweightbearing left lower extremity. Patient is to have a knee immobilizer on when ambulating. Immobilizer was removed from right lower extremity surgery yesterday. She can weight-bear as tolerated. Dressing instructions, will leave Opteform dressing in place at this time, we'll also leave Mario bandage in place at this time. Other medical center manager and recommendations Discharge planning: Patient was evaluated for possibility of inpatient rehab, will wait for further assessment and recommendations. Time with Patient: Less than 30
[2021-11-25 12:06] LABS: African American GFR (CKD) 81.7 (60.0-200.0); Albumin 3.5 g/dL (3.8-4.9); Albumin/Globulin Ratio 1.94 (1.60-3.17); Anion Gap 10.1 mmol/L (10.00-18.00); BUN/Creat Ratio 9.56 Ratio (12.00-20.00); Blood Urea Nitrogen 8.6 mg/dL (9.0-27.0); Calcium 8.6 mg/dL (8.7-10.3); Carbon Dioxide 21.9 mmol/L (20.0-27.5); Globulin 1.8 g/dL (1.6-3.3); Non-African American GFR(CKD) 70.5 (60.0-200.0); Total Bilirubin 0.5 mg/dL (0.30-1.20); Total Protein 5.3 g/dL (6.2-8.2)
--- NOTE | 2021-11-25 12:14 | P.PN ---
Subjective Progress Note Date: 11/25/21 Principal diagnosis: left patella fracture, right fibular fracture Patient is a pleasant 56-year-old female, presented to the emergency room following a fall. Patient states she fell down the basement stairs and and had severe left knee pain and unable to bear weight. Patient was unsure if she hit her head, head CT shows no acute intracranial abnormality or injury. Xray Demetra ging found left transverse patellar fracture with soft tissue involvement and right proximal fibular head fracture. Patient was admitted to Dr. Rios orthopedic surgeon. Patient has a pertinent medical history of glioblastoma in remission, residual expressive aphasia and gait disturbance from brain surgery, history of seizures, GERD, and hypothyroidism. Patient is to undergo surgery today. Chest x-ray was negative for acute process, EKG found sinus rhythm. Labs were reviewed. Patient is medically cleared for surgery. 11/25/2021 Patient was seen and evaluated at bedside. Was sobbing, reporting intense pain in the left knee and anxiety from the IV pump alarming. Patient denies chest pain, shortness of breath, fever or chills. Patient had just received pain medication and was beginning to work. Patient was reassured of her concerned and was calm at end of exam. Continue following with orthopedic recommendations for fracture treatment. Objective - Vital Signs Vital signs: Vital Signs Temp 98.6 F 11/25/21 06:53 Pulse 82 11/25/21 06:53 Resp 16 11/25/21 06:53 BP 114/71 11/25/21 06:53 Pulse Ox 100 11/25/21 06:53 Intake & Output 11/24/21 11/25/21 11/25/21 18:59 06:59 18:59 Intake Total 850 118 Output Total 25 300 Balance 825 -182 Weight 53.977 kg Intake: IV 850 Oral 118 Output: Urine 300 Estimated Blood Loss 25 Other: Voiding Method Bedpan # Voids 2 1 # Bowel Movements 1 - Constitutional General appearance: Present: cooperative, disheveled, mild distress - EENT Eyes: Present: EOMI, PERRLA ENT: Present: normal oropharynx - Neck Neck: Present: normal ROM - Respiratory Respiratory: bilateral: CTA - Cardiovascular Heart rate: 90 Rhythm: regular Heart sounds: normal: S1, S2 - Peripheral pulses radial pulse Peripheral Pulses: bilateral: Normal dorsalis pedis Peripheral Pulses: bilateral: Normal - Gastrointestinal General gastrointestinal: Present: normal bowel sounds, soft - Integumentary Integumentary: Present: normal - Musculoskeletal Musculoskeletal Comment(s): left leg in immobilizer, normal range of motion of other extrem - Psychiatric Psychiatric: Present: A&O x's 3 - Allied health notes Allied health notes reviewed: nursing - Labs CBC & Chem 7: 11/23/21 23:53 11/23/21 23:53 Assessment and Plan Assessment: Displaced and comminuted open left transverse patellar fracture, status post ORIF Displaced right proximal fibular fracture Hypothyroidism History of glioblastoma, residual gait disturbance from surgery GERD History of seizure Plan: Continue following with ortho recommendations Physical therapy, occupational therapy and case management consult for discharge planning Continue to manage pain, medication ordered Continue with current medication regimen Further recommendations to come based on patient's clinical course Time with Patient: Greater than 30
[2021-11-25] MEDS ORDERED: HYDROcodone/APAP 7.5-325MG 1 EACH TAB PO ONE (14:26)
--- NOTE | 2021-11-25 15:27 | CDI ---
Documentation Clarification Form Date: 11/25/2021 03:01:35 PM From: Serina Priest RN, CCDS Admit Date: 11/24/2021 11:01:00 AM Patient Name: Joan Shields Visit Number: [id number] Discharge Date: ATTENTION: The Clinical Documentation Specialists (CDI) and [facility] Coding Staff appreciate your assistance in clarifying documentation. Please respond to the clarification below the line at the bottom and electronically sign. The CDI & [facility] Coding staff will review the response and follow-up if needed. Please note: Queries are made part of the Legal Health Record. If you have any questions, please contact the author of this message via ITS. Dr. Joel New debridement is documented in the operative note on 11/24/21. Additional clarification regarding the procedure is requested. History/Risk Factors: Brain surgery for Cancer, Osteoporosis Clinical Indicators: 56-year-old female with fall and left comminuted open distal third patella fracture. Operative note: Fracture edges were debrided with ronguer and curette to remove fracture hematoma and nonviable bone chips. Procedure performed Open reduction internal fixation of left distal third patella fracture. Treatment: Cefazolin 1000 MG IVPB Q 8 HRS (11/24- ORIF left distal third patella and I/D of nonviable bone, subcutaneous tissue left knee Narco 7.5MG/325 MG 1-2 PO Q6 HRS Dilaudid 1 MG IVP Q3 PRN (severe pain) PT/OT evaluation, Nonweightbearing left lower extremity, Knee immobilizer when ambulating Dressing instructions per orders. Opteform and Mario bandage. Please further clarify the type of procedure performed: [ x ] Excisional debridement (the removal of necrotic, devitalized tissue or slough by means of cutting away of tissue) [ ] Non-excisional debridement (the removal of necrotic, devitalized tissue or slough by means of flushing, brushing, or washing. (Irrigation) [ ] Other; please specify [ ] Unable to determine Five elements required for accurate and compliant documentation of a debridement: Technique used (e.g., excisional, excised, cutting, brushing, jet lavage etc.) Instrument(s) used (e.g., scalpel, curette, etc.) Nature of the tissue removed (e.g., necrotic, devitalized tissues, non-viable tissue, etc.) Appearance and size of the wound (e.g., down to fresh bleeding tissue, 7cm x 10cm, etc.) Depth of the debridement* (e.g., skin, subcutaneous tissue, fascia, muscle, bone, etc.) (Template Last Revised: November 2020) MTDD
[2021-11-25 15:59] LABS: Basophils # (A) 0.01 X 10*3/uL (0.00-0.10); Basophils % (A) 0.2 %; Eosinophils # (A) 0.09 X 10*3/uL (0.04-0.35); Eosinophils % (A) 1.9 %; HCT 32.7 % (37.2-46.3); Immature Grans, Automated 0.4 %; Lymphocytes # (A) 0.83 X 10*3/uL (0.90-5.00); Lymphocytes % (A) 17.1 %; MCH 29.6 pg (27.0-32.0); MCHC 30.6 g/dL (32.0-37.0); MCV 96.7 fL (80.0-97.0); Monocytes # (A) 0.43 X 10*3/uL (0.20-1.00); Monocytes % (A) 8.9 %; NRBC Per 100 WBC 0 /100 WBCS (0.0-0.0); Neutrophils # (A) 3.46 X 10*3/uL (1.80-7.70); Neutrophils % (A) 71.5 %; Platelet Count 168 X 10*3/uL (140-440); RBC 3.38 X 10*6/uL (4.10-5.20); RDW 13.6 % (11.5-14.5); WBC 4.84 X 10*3/uL (4.50-10.00)
[2021-11-25] MEDS: PANTOPRAZOLE 40 MG TABLET PO SCH (17:30)
[2021-11-25] MEDS: CYCLOBENZAPRINE 10 MG TAB PO SCH (20:11)
[2021-11-25] MEDS: CITALOPRAM HYDROBROMIDE 20 MG TAB PO SCH (20:11)
[2021-11-25] MEDS: clonazePAM 0.5 MG TAB PO SCH (20:11)
[2021-11-25] MEDS: ZONISAMIDE 100 MG CAP PO SCH (20:12)
[2021-11-26] MEDS: HYDROmorphone 0.5 MG/0.5 ML SYRINGE IVP PRN ×4 (02:57→14:22)
[2021-11-26 03:21] VITALS: RESP 18; TEMP 98.2
[2021-11-26] MEDS: HYDROcodone/APAP 7.5-325MG 1 EACH TAB PO PRN ×3 (05:06→12:03)
[2021-11-26] MEDS: LEVOTHYROXINE 75 MCG TAB PO SCH (05:07)
[2021-11-26] MEDS: LIOTHYRONINE SODIUM 5 MCG TAB PO SCH (05:07)
[2021-11-26 07:49] VITALS: BP 103/65; PULSE 76
[2021-11-26] MEDS: CALCIUM CARB-VIT D 500 MG-5 MCG TAB PO SCH (08:46)
[2021-11-26] MEDS: PANTOPRAZOLE 40 MG TABLET PO SCH (08:46)
[2021-11-26] MEDS: cycloSPORINE 0.05% OPHTH 0.4 ML DROPERETTE BOTH EYES SCH (08:51)
[2021-11-26] MEDS: ENOXAPARIN 40 MG/0.4 ML SYRINGE SQ SCH (08:51)
--- NOTE | 2021-11-26 10:39 | P.PN ---
Subjective Progress Note Date: 11/26/21 Principal diagnosis: Status post ORIF left patellar fracture, minimally displaced right proximal fibular fracture Patient evaluated at bedside, she is lumbar comfortable today. Pain is better controlled. She was up side of the bed minimal yesterday. She currently denies any headaches, lightheadedness, chest pain or shortness of breath. Objective - Vital Signs Vital signs: Vital Signs Temp 98.2 F 11/26/21 07:00 Pulse 76 11/26/21 07:00 Resp 18 11/26/21 09:35 BP 103/65 11/26/21 07:00 Pulse Ox 99 11/26/21 07:00 Intake & Output 11/25/21 11/26/21 11/26/21 18:59 06:59 18:59 Intake Total 236 Output Total 300 375 Balance -64 -375 Intake: Oral 236 Output: Urine 300 375 Other: Voiding Method Bedpan Bedpan # Voids 1 1 - Exam Left lower extremity: Immobilizer was removed at bedside today for exam. Mario bandage was removed, dressing remains intact. Minimal soft tissue swelling present over the anterior aspect of the knee. The calf is soft, no tenderness with palpation. Plantar flexion, dorsiflexion, EHL, FHL are intact. Her sensory exam light touch is intact throughout the extremity. Her dorsalis pedis pulses 2+ - Labs CBC & Chem 7: 11/25/21 07:08 11/25/21 07:08 Labs: Abnormal Lab Results - Last 24 Hours (Table) 11/25/21 11/25/21 Range/Units 07:08 07:08 RBC 3.38 L (4.10-5.20) X 10*6/uL Hgb 10.0 L (12.0-15.0) g/dL Hct 32.7 L (37.2-46.3) % MCHC 30.6 L (32.0-37.0) g/dL MPV 9.0 L (9.5-12.2) fL Lymphocytes # 0.83 L (0.90-5.00) X 10*3/uL Sodium 134 L (135-145) mmol/L BUN 8.6 L (9.0-27.0) mg/dL BUN/Creatinine Ratio 9.56 L (12.00-20.00) Ratio Glucose 126 H (70-110) mg/dL Calcium 8.6 L (8.7-10.3) mg/dL Total Protein 5.3 L (6.2-8.2) g/dL Albumin 3.5 L (3.8-4.9) g/dL Assessment and Plan Assessment: Postoperative day #2 status post ORIF left patellar fracture Mildly displaced right proximal fibular fracture Status post fall downstairs Other medical comorbidities Plan: Plan: Pain control, discussed the patient to try to limit IV medication at this time. Continue with oral medication as needed. DVT prophylaxis, continue subcu medication during inpatient stay, we'll transition likely to aspirin at discharge PT/OT evaluation, nonweightbearing left lower extremity. Patient is to have a knee immobilizer on when ambulating. Weight-bear as tolerated on the right lower extremity Dressing instructions, plan for dressing change on 11/27/2021 prior to discharge Other medical genetics director and recommendations Discharge planning: Plan for discharge to rehab tomorrow Time with Patient: Less than 30
[2021-11-26] MEDS ORDERED: polyethylene glycoL 3350 17 GM POWD.PACK PO STA (11:14)
[2021-11-26] MEDS ORDERED: DOCUSATE 100 MG CAP PO SCH (11:15)
--- NOTE | 2021-11-26 11:22 | P.PN ---
Subjective Progress Note Date: 11/26/21 Principal diagnosis: left patella fracture, right fibular fracture Patient is a pleasant 56-year-old female, presented to the emergency room following a fall. Patient states she fell down the basement stairs and and had severe left knee pain and unable to bear weight. Patient was unsure if she hit her head, head CT shows no acute intracranial abnormality or injury. Xray Demetra ging found left transverse patellar fracture with soft tissue involvement and right proximal fibular head fracture. Patient was admitted to Dr. Rios orthopedic surgeon. Patient has a pertinent medical history of glioblastoma in remission, residual expressive aphasia and gait disturbance from brain surgery, history of seizures, GERD, and hypothyroidism. Patient is to undergo surgery today. Chest x-ray was negative for acute process, EKG found sinus rhythm. Labs were reviewed. Patient is medically cleared for surgery. 11/25/2021 Patient was seen and evaluated at bedside. Was sobbing, reporting intense pain in the left knee and anxiety from the IV pump alarming. Patient denies chest pain, shortness of breath, fever or chills. Patient had just received pain medication and was beginning to work. Patient was reassured of her concerned and was calm at end of exam. Continue following with orthopedic recommendations for fracture treatment. 11/26/2021 Patient is seen and evaluated at bedside. Patient is resting comfortably in bed, no acute distress. Patient reports pain being managed well, but still aches everywhere from falling. Patient denies shortness of breath, chest pain, chills. Patient states she had a bowel movement after surgery but not one since, stool softeners added and MiraLAX ordered once. Discussed discharge to inpatient rehab today as they're able to manage her pain there and wean off pain medication as well as starting physical therapy. Patient is medically cleared to go to rehab based on surgeon's recommendation. Objective - Vital Signs Vital signs: Vital Signs Temp 98.2 F 11/26/21 07:00 Pulse 76 11/26/21 07:00 Resp 18 11/26/21 09:35 BP 103/65 11/26/21 07:00 Pulse Ox 99 11/26/21 07:00 Intake & Output 11/25/21 11/26/21 11/26/21 18:59 06:59 18:59 Intake Total 236 120 Output Total 300 375 400 Balance -64 -375 -280 Intake: Oral 236 120 Output: Urine 300 375 400 Other: Voiding Method Bedpan Bedpan # Voids 1 1 # Bowel Movements 0 - Constitutional General appearance: Present: cooperative, no acute distress - EENT Eyes: Present: EOMI, PERRLA ENT: Present: normal oropharynx - Neck Neck: Present: normal ROM Carotids: bilateral: upstroke normal - Respiratory Respiratory: bilateral: CTA - Cardiovascular Heart rate: 70 Rhythm: regular Heart sounds: normal: S1, S2 - Peripheral pulses radial pulse Peripheral Pulses: bilateral: Normal dorsalis pedis Peripheral Pulses: bilateral: Normal - Gastrointestinal General gastrointestinal: Present: normal bowel sounds, soft - Integumentary Integumentary Comment(s): Bruising Integumentary: Present: normal - Neurologic Neurologic: Present: CNII-XII intact - Musculoskeletal Musculoskeletal: Present: generalized weakness - Psychiatric Psychiatric: Present: A&O x's 3, appropriate affect, intact judgment & insight - Allied health notes Allied health notes reviewed: nursing - Labs CBC & Chem 7: 11/25/21 07:08 11/25/21 07:08 Labs: Abnormal Lab Results - Last 24 Hours (Table) 11/25/21 11/25/21 Range/Units 07:08 07:08 RBC 3.38 L (4.10-5.20) X 10*6/uL Hgb 10.0 L (12.0-15.0) g/dL Hct 32.7 L (37.2-46.3) % MCHC 30.6 L (32.0-37.0) g/dL MPV 9.0 L (9.5-12.2) fL Lymphocytes # 0.83 L (0.90-5.00) X 10*3/uL Sodium 134 L (135-145) mmol/L BUN 8.6 L (9.0-27.0) mg/dL BUN/Creatinine Ratio 9.56 L (12.00-20.00) Ratio Glucose 126 H (70-110) mg/dL Calcium 8.6 L (8.7-10.3) mg/dL Total Protein 5.3 L (6.2-8.2) g/dL Albumin 3.5 L (3.8-4.9) g/dL Assessment and Plan Assessment: Displaced and comminuted open left transverse patellar fracture, status post ORIF Displaced right proximal fibular fracture Constipation related to pain medication Hypothyroidism History of glioblastoma, residual gait disturbance from surgery GERD History of seizure Plan: Continue following with ortho recommendations, cleared for discharge when recommended by surgeon Physical therapy, occupational therapy and case management consult for discharge planning, planning for inpatient rehab Continue to manage pain, stool softener added Continue with current medication regimen Further recommendations to come based on patient's clinical course Time with Patient: Greater than 30
--- NOTE | 2021-11-26 11:56 | P.DS ---
Providers Date of admission: 11/24/21 11:01 Expected date of discharge: 11/26/21 Attending physician: Joel Rios DO Consults: 11/24/21 03:22 Consult Physician Routine Consulting Provider: Angel Bains Consult Reason/Comments: known Do you want consulting provider notified?: Yes 11/24/21 11:03 Consult Physician Routine Consulting Provider: Terell Mcmillan Consult Reason/Comments: possible IPR, please evaluate on 11/25 post surgery Do you want consulting provider notified?: Yes Primary care physician: Angel Bains Hospital Course: Date of admission: 11/23/2021 Date of discharge: 11/26/2021 Admission diagnosis: Displaced and comminuted left patellar fracture, mildly displaced right proximal fibular fracture Discharge diagnosis: Status post ORIF left patellar fracture, mildly displaced right proximal fibular fracture Attending physician: Dr. Rios Surgical procedures: Open reduction internal fixation left patellar fracture Brief history: Patient is a 56-year-old female who presented to [facility] on 11/23/2021 after falling down her stairs at home and injuring her left and right lower extremity. After arrival to the hospital, imaging and lab tests were done. Images demonstrated a comminuted left patellar fracture and a mildly displaced right proximal fibular fracture. Patient was admitted under our orthopedic care with plan for surgical intervention. Internal medicine consult was placed for medical management. Hospital course: Details of patient's surgery can be found in operative report. Patient tolerated the procedure well and was subsequently transported to orthopedic floor. Patient's orthopeidc and medical care was provided daily. Patient had daily laboratory tests performed for evaluation of overall blood counts. Patient had daily physical therapy to include strengthening range of motion as well as education with walker ambulation. Patient was treated with Lovenox for their postoperative DVT prophylaxis during their inpatient stay. Patient was noted to have a relatively uneventful postoperative course. Patient reported satisfactory pain control with oral pain medications by postoperative day 1. Patient showed satisfactory progress with physical therapy. Patient moved steadily through the program and had no difficulty meeting the goals by postoperative day 2. Given patient's otherwise satisfactory course and having met physical therapy goals, plan is to discharge patient inpatient rehab on postoperative day 2. Discharge condition/disposition: Patient will be discharged inpatient rehab in stable condition. Discharge medications: Instructions are given on resumption of patient's normal daily medications per primary care recommendation, in addition patient will be prescribed [place] 7.5 mg/325 mg, senna S, MiraLAX 17 g, Lovenox 40 mg, Keflex 500 mg Discharge instructions: 1. Wound care and infection precautions, keep incision dry and covered while showering, no lotions, creams, moisturizers. No soaking, tubs, pools, hottubs. Do not scrub over the incision. 2. Nonweightbearing left lower extremity, utilizing a knee immobilizer. Weight-bear as tolerated right lower extremity. Recommend use of walker at all times 3. Ice and elevate when necessary. Do not exceed 20 minutes per hour with ice pack. 4. Okay to remove knee immobilizer when lying in bed, knee must remain fully extended. 5. Pain meds and anticoagulants per prescription. 6. Pain medication has potential to cause constipation. Increase oral fluid and fiber intake. Contact primary care provider if you have not had a bowel movement within 48 hours after discharge 7. Follow up in office at [address] Rios 8. Contact [facility] with any questions, . Procedures: Open reduction internal fixation left patellar fracture Patient Condition at Discharge: Good Plan - Discharge Summary Discharge Rx Participant: No New Discharge Prescriptions: New Enoxaparin [Lovenox] 40 mg SQ DAILY #12 each polyethylene glycoL 3350 [Miralax] 17 gm PO DAILY PRN #21 packet PRN Reason: Constipation HYDROcodone/APAP 7.5-325MG [[place] 7.5] 1 - 2 each PO Q6HR PRN #42 tab PRN Reason: Pain Cephalexin [Keflex] 500 mg PO Q6HR 7 Days #28 cap Sennosides/Docusate Sodium [Senna-S 8.6-50 mg Tablet] 2 each PO DAILY PRN #30 tablet PRN Reason: Constipation No Action clonazePAM [KlonoPIN] 0.5 mg PO HS Cyclobenzaprine [Flexeril] 10 mg PO HS Amitriptyline HCl 30 mg PO HS Zonisamide [Zonegran] 200 mg PO HS Famotidine [Pepcid] 20 mg PO BID Citalopram Hydrobromide [CeleXA] 40 mg PO HS Calcium Carbonate/Vitamin D3 [Calcium 600 mg-Vit D3 5 mcg (200 unit)] 1 tab PO DAILY cycloSPORINE 0.05% OPHTH SOLN [Restasis] 1 drop BOTH EYES BID traZODone HCL 100 mg PO HS SUMAtriptan succinate 6 mg SQ DAILY PRN PRN Reason: Migraine Headache Levothyroxine Sodium [Synthroid] 75 mcg PO DAILY Acyclovir [Zovirax] 200 mg PO Q4H Liothyronine Sodium [Cytomel] 5 mcg PO DAILY Discharge Medication List clonazePAM [KlonoPIN] 0.5 mg PO HS 10/11/16 [History] Cyclobenzaprine [Flexeril] 10 mg PO HS 07/02/19 [History] Amitriptyline HCl 30 mg PO HS 10/21/19 [History] Zonisamide [Zonegran] 200 mg PO HS 04/09/20 [History] Calcium Carbonate/Vitamin D3 [Calcium 600 mg-Vit D3 5 mcg (200 unit)] 1 tab PO DAILY 07/22/21 [History] Citalopram Hydrobromide [CeleXA] 40 mg PO HS 07/22/21 [History] Famotidine [Pepcid] 20 mg PO BID 07/22/21 [History] Levothyroxine Sodium [Synthroid] 75 mcg PO DAILY 07/22/21 [History] Acyclovir [Zovirax] 200 mg PO Q4H 11/24/21 [History] Liothyronine Sodium [Cytomel] 5 mcg PO DAILY 11/24/21 [History] SUMAtriptan succinate 6 mg SQ DAILY PRN 11/24/21 [History] cycloSPORINE 0.05% OPHTH SOLN [Restasis] 1 drop BOTH EYES BID 11/24/21 [History] traZODone HCL 100 mg PO HS 11/24/21 [History] Cephalexin [Keflex] 500 mg PO Q6HR 7 Days #28 cap 11/26/21 [Rx] Enoxaparin [Lovenox] 40 mg SQ DAILY #12 each 11/26/21 [Rx] HYDROcodone/APAP 7.5-325MG [[place] 7.5] 1 - 2 each PO Q6HR PRN #42 tab 11/26/21 [Rx] Sennosides/Docusate Sodium [Senna-S 8.6-50 mg Tablet] 2 each PO DAILY PRN #30 tablet 11/26/21 [Rx] polyethylene glycoL 3350 [Miralax] 17 gm PO DAILY PRN #21 packet 11/26/21 [Rx] Follow up Appointment(s)/Referral(s): Angel Bains MD [Primary Care Provider] - 1-2 days Joel Rios DO [Doctor of Osteopathic Medicine] - 10 Days Activity/Diet/Wound Care/Special Instructions: Orthopedic Discharge Instructions: 1. Non weightbearing left lower extremity, must utilize knee immobolizer when up and while sleeping 2. Weight-bear as tolerated right lower extremity 3. Utilize walker at all times 4. Ice and elevate the extremity 5. Pain medication as needed 6. Lovenox 40 mg subcu daily, discontinue on 12/07/2021, utilize aspirin 325 mg daily for 2 additional weeks 7. Keep incision covered and dry on left leg while showering 8. Follow up at [facility] in 2 weeks Discharge/Stand Alone Forms: Personal Art History Professor Discharge Disposition: TRANSFER TO SNF/ECF
== END 2021-11-26 14:27 | DRG 488 ==
LOC: EC 23:28 → 6NMEDSUR 11-24 03:22 → OBSVTOIN 11-24 11:01
PROVIDERS: ADMIT Orthopaedic Surgery Hand Surgery; ATTEND Orthopaedic Surgery Hand Surgery
PROC: 0QBF0ZZ Excision of Left Patella, Open Approach (ICD-10-PCS; 2021-11-24)
PROC: 0QSF04Z Reposition Left Patella with Internal Fixation Device, Open Approach (ICD-10-PCS; principal; 2021-11-24 10:10)
DX: S82.032A Displaced transverse fracture of left patella, initial encounter for closed fracture (principal); R47.01 Aphasia; W10.9XXA Fall (on) (from) unspecified stairs and steps, initial encounter; E03.9 Hypothyroidism, unspecified; E87.6 Hypokalemia; F06.4 Anxiety disorder due to known physiological condition; G40.909 Epilepsy, unspecified, not intractable, without status epilepticus; K59.03 Drug induced constipation; M81.0 Age-related osteoporosis without current pathological fracture; R55 Syncope and collapse; S82.831A Other fracture of upper and lower end of right fibula, initial encounter for closed fracture; Z79.890 Hormone replacement therapy; Z85.841 Personal history of malignant neoplasm of brain; Z90.710 Acquired absence of both cervix and uterus; Z88.8 Allergy status to other drugs, medicaments and biological substances
CPT/HCPCS: 27560; 36415; 64447; 70450; 71045; 72125; 76942; 80053; 80320; 81003; 83735; 84100; 84484; 85025; 85610; 85730; 90471; 90715; 93005; 96361; 96365; 96375; 99285

== ENCOUNTER → 2022-02-22 | Outpatient (CLI) | payer MEDICARE, BC ==
--- NOTE | 2022-02-23 03:42 | MR ---
EXAMINATION TYPE: MR brain wo/w con DATE OF EXAM: 02/22/2022 COMPARISON: 07/23/2021 HISTORY: F/U, malignant neoplasm of parietal lobe. CONTRAST: Standard multiplanar, multisequence MRI departmental protocol images were obtained without contrast a nd with 6 mL intravenous Gadavist gadolinium contrast. Ventricles are fairly normal size. There is some diffuse white matter edema involving the left tempor al and parietal lobe. There is also some mild edema in the right parietal lobe. There is apparent old left parietal craniotomy defect. There is area of fluid signal in the white matter left posterior pa rietal lobe that measures 10 mm and consistent with postsurgical changes. There is a second small alexandra ear area of fluid signal in the left posterior parietal convexity also consistent with surgery. The c ontrast images show no pathologic enhancement. There is normal enhancement of the venous sinuses. No mass effect or midline shift. No sign of intracranial hemorrhage. The posterior fossa structures appear normal. Brainstem is intact. Cerebellum no evidence of orbital mass. IMPRESSION: Previous surgery with some white matter edema as above appears stable compared to old exam. No pathol ogic enhancement seen to suggest recurrent tumor. No significant change compared to old exam.
== END | disposition home or self-care (01) ==
LOC: RADMRIMAIN 14:34
PROVIDERS: ATTEND Physician Assistant
DX: C71.3 Malignant neoplasm of parietal lobe (principal)
CPT/HCPCS: 70553; A9585

== ENCOUNTER → 2022-05-10 | Outpatient (CLI) | payer MEDICARE, BC ==
--- NOTE | 2022-05-10 11:01 | MM ---
Reason for Exam: Screening (asymptomatic). Last screening mammogram was performed 12 month(s) ago. Patient History: Menarche at age 10. First Full-Term at age 22. Left ovary removed at age 37. Right ovary removed at age 37. Hysterectomy at age 37. Postmenopausal. Other cancer, age 38. Patient used Hormonal Contraceptives for 8 years. Tamoxifen for 1 year from age 37 until age 38. 07/31/1998, Benign Excisional Biopsy on the right side. Risk Values: Devora 5 year model risk: 1.5%. NCI Lifetime model risk: 7.9%. Prior Study Comparison: 03/08/2019 Bilateral Screening Mammogram, [facility]. 03/24/2020 Bilateral Screening Mammogram, [facility]. 05/08/2021 Bilateral Screening Mammogram, [facility]. Tissue Density: The breast tissue is heterogeneously dense. This may lower the sensitivity of mammography. Findings: Analyzed By CAD. There is no suspicious group of microcalcifications or new suspicious mass in either breast. Overall Assessment: Negative, BI-RAD 1 Management: Screening Mammogram of both breasts in 1 year. A clinical breast exam by your physician is recommended on an annual basis and results should be correlated with mammographic findings. Electronically signed and approved by: Roosevelt Goddard DO
== END | disposition home or self-care (01) ==
LOC: RADMAMWWP 09:51
PROVIDERS: ATTEND Obstetrics & Gynecology
DX: Z12.31 Encounter for screening mammogram for malignant neoplasm of breast (principal)
CPT/HCPCS: 77063; 77067

== ENCOUNTER 2022-08-17 06:49 | Emergency (ER) | payer MEDICARE, BC ==
[2022-08-17] MEDS ORDERED: HYDROmorphone 0.5 MG/0.5 ML SYRINGE IVP STA (07:08)
[2022-08-17 07:12] LABS: Basophils % (A) 0 %; Eosinophils # (A) 0.2 k/uL (0-0.7); Eosinophils % (A) 3 %; HCT 35.8 % (34.0-46.0); Lymphocytes # (A) 0.6 k/uL (1.0-4.8); Lymphocytes % (A) 8 %; MCH 30.9 pg (25.0-35.0); MCHC 33.6 g/dL (31.0-37.0); MCV 91.8 fL (80.0-100.0); Mean Platelet Volume 7.2; Monocytes # (A) 0.2 k/uL (0-1.0); Monocytes % (A) 3 %; Neutrophils # (A) 6.1 k/uL (1.3-7.7); Neutrophils % (A) 84 %; Platelet Count 215 k/uL (150-450); RDW 12.4 % (11.5-15.5); WBC 7.2 k/uL (3.8-10.6)
[2022-08-17 07:32] LABS: Albumin 3.8 g/dL (3.5-5.0); Calcium 8.6 mg/dL (8.4-10.2); Total Bilirubin 0.6 mg/dL (0.2-1.3); Total Protein 6.2 g/dL (6.3-8.2)
--- NOTE | 2022-08-17 07:37 | ED ---
Fall HPI - General Chief Complaint: Fall Stated Complaint: Fall, Back Pain Time Seen by Provider: 08/17/22 06:50 Source: patient, RN notes reviewed Mode of arrival: EMS Limitations: physical limitation - History of Present Illness Initial Comments: This a 57-year-old female presents emergency department via EMS chief left sided rib pain, left hip pain. Patient states that she had a few falls over the last few days. Patient states that she has poor balance, falls from prior brain tumor. Patient states this is not out of the usual for the patient she denies any headache, dizziness, blurred vision. Patient states that she hadn't had no head trauma. She states is painful to move, take a deep inspiration she states that she was walking after her falls. Patient does not that she had surgery last year for left knee injury another broken leg. Patient denies any fevers chills patient did receive fentanyl prior arrival. - Related Data Home Medications Medication Instructions Recorded Confirmed clonazePAM [KlonoPIN] 0.5 mg PO HS 10/11/16 11/24/21 Cyclobenzaprine [Flexeril] 10 mg PO HS 07/02/19 11/24/21 Amitriptyline HCl 30 mg PO HS 10/21/19 11/24/21 Zonisamide [Zonegran] 200 mg PO HS 04/09/20 11/24/21 Calcium Carbonate/Vitamin D3 1 tab PO DAILY 07/22/21 11/24/21 [Calcium 600 mg-Vit D3 5 mcg (200 unit)] Citalopram Hydrobromide [CeleXA] 40 mg PO HS 07/22/21 11/24/21 Famotidine [Pepcid] 20 mg PO BID 07/22/21 11/24/21 Levothyroxine Sodium [Synthroid] 75 mcg PO DAILY 07/22/21 11/24/21 Acyclovir [Zovirax] 200 mg PO Q4H 11/24/21 11/24/21 Liothyronine Sodium [Cytomel] 5 mcg PO DAILY 11/24/21 11/24/21 SUMAtriptan succinate 6 mg SQ DAILY PRN 11/24/21 11/24/21 cycloSPORINE 0.05% OPHTH SOLN 1 drop BOTH EYES BID 11/24/21 11/24/21 [Restasis] traZODone HCL 100 mg PO HS 11/24/21 11/24/21 Previous Rx's Medication Instructions Recorded Cephalexin [Keflex] 500 mg PO Q6HR 7 Days #28 cap 11/26/21 Enoxaparin [Lovenox] 40 mg SQ DAILY #12 each 11/26/21 HYDROcodone/APAP 7.5-325MG [[place] 1 - 2 each PO Q6HR PRN #42 tab 11/26/21 7.5] Sennosides/Docusate Sodium 2 each PO DAILY PRN #30 tablet 11/26/21 [Senna-S 8.6-50 mg Tablet] polyethylene glycoL 3350 [Miralax] 17 gm PO DAILY PRN #21 packet 11/26/21 HYDROcodone/APAP 10-325MG [[place] 1 tab PO Q6HR PRN 3 Days #12 tab 08/17/22 10-325] Allergies Allergy/AdvReac Type Severity Reaction Status Date / Time lamotrigine [From Lamictal] Allergy Rash/Hives Verified 11/24/21 12:14 phenytoin sodium Allergy Anaphylaxis Verified 11/24/21 12:14 [From Dilantin] phenytoin sodium extended Allergy Anaphylaxis Verified 11/24/21 12:14 [From Dilantin] TAPE AdvReac Unknown Uncoded 11/24/21 12:57 Review of Systems ROS Statement: Those systems with pertinent positive or pertinent negative responses have been documented in the HPI. ROS Other: All systems not noted in ROS Statement are negative. Past Medical History Past Medical History: Cancer, GERD/Reflux, Seizure Disorder, Thyroid Disorder Additional Past Medical History / Comment(s): 2002 glioblastoma/brain surgery/chemo/radiation and pt states she has some expressive aphasia/gait disturbance, focal seizure since brain surgery/pt believes last seizure was in 2006, osteoporosis, hypothyroid. History of Any Multi-Drug Resistant Organisms: None Reported Past Surgical History: Cholecystectomy, Hysterectomy Additional Past Surgical History / Comment(s): Brain surgery for Cancer; EGD, colonoscopy Past Anesthesia/Blood Transfusion Reactions: No Reported Reaction Past Psychological History: No Psychological Hx Reported Smoking Status: Never smoker - Past Family History Father Family Medical History: Cancer Additional Family Medical History / Comment(s): Brain tumor Mother Family Medical History: Renal Disease Additional Family Medical History / Comment(s): Heart problems, renal failure, obesity. General Exam Limitations: no limitations General appearance: alert, in no apparent distress Head exam: Present: atraumatic, normocephalic, normal inspection Eye exam: Present: normal appearance, PERRL, EOMI. Absent: scleral icterus, c onjunctival injection, periorbital swelling ENT exam: Present: normal exam, mucous membranes moist Neck exam: Present: normal inspection, full ROM. Absent: tenderness, meningismus, lymphadenopathy Respiratory exam: Present: normal lung sounds bilaterally, chest wall tenderness. Absent: respiratory distress, wheezes, rales, rhonchi, stridor Cardiovascular Exam: Present: regular rate, normal rhythm, normal heart sounds. Absent: systolic murmur, diastolic murmur, rubs, gallop, clicks Extremities exam: Present: other (Hip tenderness, legs are neurovascular intact upper extremity full range of motion neurovascular intact) Back exam: Present: full ROM, tenderness. Absent: paraspinal tenderness, vertebral tenderness Neurological exam: Present: alert, oriented X3, CN II-XII intact, reflexes normal. Absent: motor sensory deficit Course Vital Signs 08/17/22 08/17/22 06:50 08:04 Temperature 98.3 F Pulse Rate 78 78 Respiratory 16 18 Rate Blood Pressure 109/57 99/50 O2 Sat by Pulse 100 96 Oximetry Medical Decision Making - Medical Decision Making 57-year-old female presented for a fall complaint rib and hip pain. Patient is able to ambulate x-ray interpreted no acute fracture of the hip or ribs. Patient we discharged with pain control return parameters were discussed. - Lab Data Result diagrams: 08/17/22 07:07 08/17/22 07:07 Lab Results 08/17/22 08/17/22 Range/Units 07:07 07:07 WBC 7.2 (3.8-10.6) k/uL RBC 3.90 (3.80-5.40) m/uL Hgb 12.0 (11.4-16.0) gm/dL Hct 35.8 (34.0-46.0) % MCV 91.8 (80.0-100.0) fL MCH 30.9 (25.0-35.0) pg MCHC 33.6 (31.0-37.0) g/dL RDW 12.4 (11.5-15.5) % Plt Count 215 (150-450) k/uL MPV 7.2 Neutrophils % 84 % Lymphocytes % 8 % Monocytes % 3 % Eosinophils % 3 % Basophils % 0 % Neutrophils # 6.1 (1.3-7.7) k/uL Lymphocytes # 0.6 L (1.0-4.8) k/uL Monocytes # 0.2 (0-1.0) k/uL Eosinophils # 0.2 (0-0.7) k/uL Basophils # 0.0 (0-0.2) k/uL Sodium 138 (137-145) mmol/L Potassium 4.0 (3.5-5.1) mmol/L Chloride 107 (98-107) mmol/L Carbon Dioxide 25 (22-30) mmol/L Anion Gap 6 mmol/L BUN 17 (7-17) mg/dL Creatinine 1.04 (0.52-1.04) mg/dL Est GFR (CKD-EPI)AfAm 68 (>60 ml/min/1.73 sqM) Est GFR (CKD-EPI)NonAf 59 (>60 ml/min/1.73 sqM) Glucose 151 H (74-99) mg/dL Calcium 8.6 (8.4-10.2) mg/dL Total Bilirubin 0.6 (0.2-1.3) mg/dL AST 25 (14-36) U/L ALT 17 (4-34) U/L Alkaline Phosphatase 68 (38-126) U/L Total Protein 6.2 L (6.3-8.2) g/dL Albumin 3.8 (3.5-5.0) g/dL Disposition Clinical Impression: Fall, Contusion of rib on left side, Contusion of left hip Disposition: HOME SELF-CARE Condition: Stable Instructions (If sedation given, give patient instructions): Rib Contusion (ED) Additional Instructions: Please return to the Emergency Department if symptoms worsen or any other concerns. Prescriptions: HYDROcodone/APAP 10-325MG [[place] 10-325] 1 tab PO Q6HR PRN 3 Days #12 tab PRN Reason: pain Is patient prescribed a controlled substance at d/c from ED?: Yes When asked, does pt state using other controlled substances?: No If prescribed controlled substance>3 days was MAPS reviewed?: Prescribed <3 Days If opioid is for acute pain is fill amount 7 days or less?: Yes If Rx opioid, was Start Talking consent form obtained?: Yes Referrals: None,Stated [Primary Care Provider] - 1-2 days Time of Disposition: 08:49
[2022-08-17 08:08] VITALS: RESP 18
--- NOTE | 2022-08-17 08:22 | XR ---
EXAMINATION TYPE: XR cervical spine 3 views DATE OF EXAM: 08/17/2022 Comparison: None Clinical History: 57-year-old female pain Findings: No predental space widening or prevertebral soft tissue swelling. Moderate degenerative disc disease C5-C6 and [id number] at C6-C7. Alignment is maintained. Uncovertebral joint and facet arthropat hy mid to lower cervical spine. Normal odontoid view. Impression: Mild to moderate multilevel spondylotic changes especially mid to lower cervical spine. No prevertebr al soft tissue swelling or malalignment.
--- NOTE | 2022-08-17 08:24 | XR ---
EXAMINATION TYPE: XR Hip LT and AP Pelvis DATE OF EXAM: 08/17/2022 COMPARISON: NONE HISTORY: Fall injury with pain. TECHNIQUE: A single AP view of the pelvis is obtained. Two views of the left hip are obtained. FINDINGS: There is no acute fracture/dislocation evident in the pelvis. The hip and sacroiliac join ts appear symmetric and unremarkable. Pubic symphysis is intact. The overlying soft tissue appears un remarkable. Two views of left hip show no acute fracture or dislocation. No focal lytic or sclerotic lesion seen in the proximal left femur. The overlying soft tissue is unremarkable. IMPRESSION: There is no acute fracture or dislocation in the pelvis or left hip.
--- NOTE | 2022-08-17 08:26 | XR ---
EXAMINATION TYPE: PA chest and left rib series, 4 views DATE OF EXAM: 08/17/2022 Comparison: 11/23/2021 Clinical History: 57-year-old female fall, pain Findings: Heart normal size. Aorta and pulmonary vasculature within normal limits. Mild interstitial prominence has a chronic appearance. Mild hyperinflation. No consolidation, pneumothorax, or pleural effusion. No displaced fracture seen. Cholecystectomy clips incidentally noted. Impression: Possible underlying COPD. Clinically correlate. Otherwise, no acute cardiopulmonary process. No displaced left rib fracture seen.
[2022-08-17 09:36] VITALS: BP 105/58; PULSE 72; TEMP 97.1
== END 2022-08-17 09:36 | disposition home or self-care (01) ==
LOC: EC 06:49
DX: S20.212A Contusion of left front wall of thorax, initial encounter (principal); S70.02XA Contusion of left hip, initial encounter; G40.909 Epilepsy, unspecified, not intractable, without status epilepticus; E03.9 Hypothyroidism, unspecified; M81.0 Age-related osteoporosis without current pathological fracture; Z88.8 Allergy status to other drugs, medicaments and biological substances; Z91.048 Other nonmedicinal substance allergy status; Z79.890 Hormone replacement therapy; R29.6 Repeated falls
CPT/HCPCS: 36415; 80053; 85025; 71101; 72040; 73502; 99284; 96374; J1170

== ENCOUNTER → 2022-12-22 | Outpatient (CLI) | payer MEDICARE, BC ==
--- NOTE | 2022-12-22 13:56 | MR ---
EXAMINATION TYPE: MR brain wo/w con DATE OF EXAM: 12/22/2022 COMPARISON: MRI brain 02/22/2022, 07/23/2021, 02/27/2021. HISTORY: Follow-up malignant neoplasm of parietal lobe. TECHNIQUE: Multiplanar, multisequence images of the brain and brainstem is performed without and with IV contras t, utilizing 5.5 mL intravenous Gadavist . FINDINGS: Diffusion weighted images demonstrate no evidence of a recent infarct or other diffusion ab normality. Artifact from high left frontal craniotomy redemonstrated. There is no extra-axial fluid collection. The ventricular system and cisternal spaces are normal in size and appearance. The brain volume is age appropriate. Cortical and confluent areas of T2/FLAIR h yperintensity throughout the white matter bilaterally. This is greatest superiorly greater on the lef t side we demonstrated. Few scattered foci of suspected biliary artifact are redemonstrated reflectin g prior microhemorrhage. No new enhancement or enhancing masses identified. Midline structures demonstrate normal morphology. The craniocervical junction appears within normal limits. The dural venous sinuses appear patent. The visualized sinuses are clear and the globes are intact. IMPRESSION: Overall stable examination with postsurgical changes and stable white matter changes. No pathologic enhancement seen to suggest recurrent tumor.
== END | disposition home or self-care (01) ==
LOC: RADMRIMAIN 12:04
PROVIDERS: ATTEND Psychiatry & Neurology Neurology
DX: C71.3 Malignant neoplasm of parietal lobe (principal); Z98.890 Other specified postprocedural states
CPT/HCPCS: 70553; A9585

== ENCOUNTER → 2023-05-11 | Outpatient (CLI) | payer MEDICARE, BC ==
--- NOTE | 2023-05-12 08:19 | MM ---
Reason for Exam: Screening (asymptomatic). Last screening mammogram was performed 12 month(s) ago. Patient History: Menarche at age 10. First Full-Term at age 22. Left ovary removed at age 37. Right ovary removed at age 37. Hysterectomy at age 37. Postmenopausal. Patient used Hormonal Contraceptives for 8 years. Tamoxifen for 1 year from age 37 until age 38. 07/31/1998, Benign Excisional Biopsy on the right side. Risk Values: Devora 5 year model risk: 1.5%. NCI Lifetime model risk: 7.7%. Prior Study Comparison: 03/24/2020 Bilateral Screening Mammogram, [facility]. 05/08/2021 Bilateral Screening Mammogram, [facility]. 05/10/2022 Bilateral MG 3D screening mammo w/cad, [facility]. Tissue Density: The breast tissue is heterogeneously dense. This may lower the sensitivity of mammography. Findings: Analyzed By CAD. There is no suspicious group of microcalcifications or new suspicious mass in either breast. Overall Assessment: Negative, BI-RAD 1 Management: Screening Mammogram of both breasts in [address] [facility] will attempt to contact patient to return for supplemental views and ultrasound if indicated. Patient should continue monthly self-breast exams. A clinical breast exam by your physician is recommended on an annual basis. This exam should not preclude additional follow-up of suspicious palpable abnormalities. Note on Devora scores and lifetime risk: 1. A Devora score greater than 3% is considered moderate risk. If this is the case, consider specialist referral to assess eligibility for a risk reducing agent. 2. If overall lifetime risk for the development of breast cancer is 20% or higher, the patient may qualify for future screening with alternating mammogram and breast MRI. Electronically signed and approved by: Roosevelt Goddard DO
== END | disposition home or self-care (01) ==
LOC: RADMAMWWP 11:56
PROVIDERS: ATTEND Family Medicine
DX: Z12.31 Encounter for screening mammogram for malignant neoplasm of breast (principal); Z78.0 Asymptomatic menopausal state
CPT/HCPCS: 77063; 77067

== ENCOUNTER → 2024-02-14 | Outpatient (CLI) | payer MEDICARE, BC ==
--- NOTE | 2024-02-15 00:34 | MR ---
EXAMINATION TYPE: MR brain wo/w con DATE OF EXAM: 02/14/2024 COMPARISON: NONE HISTORY: Yearly check-up for Removal of Brain tumor 10-25-2002 TECHNIQUE: Multiplanar, multisequence images of the brain and brainstem is performed without and with IV contras t, utilizing 5.5 mL intravenous Gadavist . FINDINGS: Diffusion weighted images demonstrate no evidence of a recent infarct or other diffusion ab normality. Artifact from high left parietal craniotomy redemonstrated. Adjacent focal encephalomalaci a again seen. There is no extra-axial fluid collection. The ventricular system and cisternal spaces remain normal in size and appearance. The brain volume is age appropriate. Cortical and confluent areas of T2/FLAIR hyperintensity throughout the white matter bilaterally more prominent on the left are redemonstrated. A few scattered foci of susceptibility artifact are redemon strated reflecting prior microhemorrhage. No new enhancement or enhancing masses identified. Midline structures redemonstrate normal morphology. The craniocervical junction appears within christelle l limits. The dural venous sinuses appear patent. The visualized sinuses are clear and the globes ar e intact. IMPRESSION: Overall stable examination with postsurgical changes and stable white matter changes. No new pathologic enhancement seen to suggest recurrent tumor.
== END | disposition home or self-care (01) ==
LOC: RADMRIMAIN 20:15
PROVIDERS: ATTEND Neurological Surgery
DX: C71.3 Malignant neoplasm of parietal lobe (principal); Z98.890 Other specified postprocedural states
CPT/HCPCS: 70553; A9585

== ENCOUNTER 2024-04-04 09:51 | Emergency (ER) | payer MEDICARE, BC ==
[2024-04-04 09:55] VITALS: BP 116/70; PULSE 73; RESP 18; TEMP 98
--- NOTE | 2024-04-04 10:10 | ED ---
General Adult HPI - General Chief complaint: Extremity Injury, Upper Stated complaint: Ring stuck on L ring finger Time Seen by Provider: 04/04/24 09:58 Source: patient Mode of arrival: ambulatory Limitations: no limitations - History of Present Illness Initial comments: Dictation was produced using Jounce dictation software. please excuse any grammatical, word or spelling errors. Chief Complaint: 59-year-old female with swollen left ring finger History of Present Illness: Patient 59-year-old female presents with swollen left ring finger. Patient states she hurt her finger yesterday. She went to bed and this morning woke up with her finger significantly swollen. She was wearing her wedding ring and is unable to get her wedding ring off. The ROS documented in this emergency department record has been reviewed and confirmed by me. Those systems with pertinent positive or negative responses have been documented in the HPI. All other systems are other negative and/or noncontributory. - Related Data Home Medications Medication Instructions Recorded Confirmed clonazePAM [KlonoPIN] 0.5 mg PO HS 10/11/16 11/25/23 Cyclobenzaprine [Flexeril] 10 mg PO HS 07/02/19 11/25/23 Amitriptyline HCl 30 mg PO HS 10/21/19 11/25/23 Zonisamide [Zonegran] 200 mg PO HS 04/09/20 11/25/23 Calcium Carbonate/Vitamin D3 1 tab PO QAM 07/22/21 11/25/23 [Calcium 600 mg-Vit D3 5 mcg (200 unit)] Citalopram Hydrobromide [CeleXA] 40 mg PO HS 07/22/21 11/25/23 Famotidine [Pepcid] 20 mg PO BID 07/22/21 11/25/23 Levothyroxine Sodium [Synthroid] 75 mcg PO QAM 07/22/21 11/25/23 SUMAtriptan succinate 6 mg SQ DAILY PRN 11/24/21 11/25/23 cycloSPORINE 0.05% OPHTH SOLN 1 drop BOTH EYES BID 11/24/21 11/25/23 [Restasis] Multivit with Calcium,Iron,Min 1 tab PO QAM 11/25/23 [Women's Multivitamin] Raloxifene HCl 60 mg PO Q48H 11/25/23 Allergies Allergy/AdvReac Type Severity Reaction Status Date / Time phenytoin sodium Allergy Severe Anaphylaxis Verified 03/03/24 20:36 [From Dilantin] phenytoin sodium extended Allergy Severe Anaphylaxis Verified 03/03/24 20:36 [From Dilantin] lamotrigine [From Lamictal] Allergy Rash/Hives Verified 03/03/24 20:36 TAPE AdvReac Unknown Uncoded 03/03/24 20:36 Review of Systems ROS Statement: Those systems with pertinent positive or pertinent negative responses have been documented in the HPI. ROS Other: All systems not noted in ROS Statement are negative. Past Medical History Past Medical History: Cancer, GERD/Reflux, Seizure Disorder, Thyroid Disorder Additional Past Medical History / Comment(s): 2002 glioblastoma/brain surgery/chemo/radiation and pt states she has some expressive aphasia/gait disturbance, focal seizure since brain surgery/pt believes last seizure was in 2006, osteoporosis, hypothyroid. History of Any Multi-Drug Resistant Organisms: None Reported Past Surgical History: Cholecystectomy, Hysterectomy Additional Past Surgical History / Comment(s): Brain surgery for Cancer; EGD, colonoscopy Past Anesthesia/Blood Transfusion Reactions: No Reported Reaction Past Psychological History: No Psychological Hx Reported Smoking Status: Never smoker Past Alcohol Use History: None Reported Past Drug Use History: None Reported - Past Family History Father Family Medical History: Cancer Additional Family Medical History / Comment(s): Brain tumor Mother Family Medical History: Renal Disease Additional Family Medical History / Comment(s): Heart problems, renal failure, obesity. General Exam - General Exam Comments Initial Comments: General: Well-appearing, nontoxic, no acute distress. Head: Normocephalic, atraumatic Eyes: PERRLA, EOMI ENT: Airway patent Chest: Nonlabored breathing Skin: No visual rash, normal skin tone Neuro: Alert and oriented 3 Musculoskeletal: No gross abnormalities Left hand: Ecchymotic left fourth digit with trapped ring Limitations: no limitations Course Vital Signs 04/04/24 09:53 Temperature 98.0 F Pulse Rate 73 Respiratory 18 Rate Blood Pressure 116/70 O2 Sat by Pulse 98 Oximetry - Reevaluation(s) Reevaluation #1: 04/04/24 10:10 Ring cutter was used to cut the ring off. Medical Decision Making - Medical Decision Making Was pt. sent in by a medical professional or institution (, PA, SASH ASSEMBLER, urgent care, hospital, or long-term...) When possible be specific @ -No Did you speak to anyone other than the patient for history (EMS, parent, family, police, friend...)? What history was obtained from this source @ -No Did you review nursing and triage notes (agree or disagree)? Why? @ -I reviewed and agree with nursing and triage notes Were old charts reviewed (outside hosp., previous admission, EMS record, old EKG, old radiological studies, urgent care reports/EKG's, long-term records)? Report findings @ -No old charts were reviewed Differential Diagnosis (chest pain, altered mental status, abdominal pain women, abdominal pain men, vaginal bleeding, musculoskeletal, weakness, fever, dyspnea, syncope, headache, dizziness, GI bleed, back pain, seizure, CVA, palpatations, mental health)? @ -Finger fracture, finger infection, flexor tenosynovitis EKG interpreted by me (3pts min.). @ -None done X-rays interpreted by me (1pt min.). @ -Left hand x-ray is unremarkable CT interpreted by me (1pt min.). @ -None done U/S interpreted by me (1pt. min.). @ -None done What testing was considered but not performed or refused? (CT, X-rays, U/S, labs)? Why? @ -None What meds were considered but not given or refused? Why? @ -None Was smoking cessation discussed for >3mins.? @ -No Were there social determinants of health that impacted care today? How? (Homelessness, low income, unemployed, alcoholism, drug addiction, transportation, low edu. Level, literacy, decrease access to med. care, snf, rehab)? @ -No Was there de-escalation of care discussed even if they declined (Discuss DNR or withdrawal of care, Hospice)? DNR status @ -No What co-morbidities impacted this encounter? (DM, HTN, Smoking, COPD, CAD, Cancer, CVA, ARF, Chemo, Hep., AIDS, mental health diagnosis, sleep apnea, morbid obesity)? @ -None Was patient admitted / discharged? Hospital course, mention meds given and route, prescriptions, significant lab abnormalities, going to OR and other pertinent info. @ -59-year-old female with swollen finger with entrapped wedding ring. Vital signs stable. Ring cutters were used to remove the ring. X-rays negative. Patient well-appearing. Advised follow-up with primary care doctor. Did you discuss the management of the patient with other professionals (professionals i.e. , PA, SASH ASSEMBLER, lab, RT, psych nurse, social welfare administrator, internal controls manager, teacher, gifts officer, manager of case management)? Give summary @ -No Was critical care preformed (if so, how long)? @ -No Undiagnosed new problem with uncertain prognosis? @ -No Drug Therapy requiring intensive monitoring for toxicity (Heparin, Nitro, Insulin, Cardizem)? @ -No Were any procedures done? @ -No Diagnosis/symptom? Acute, or Chronic, or Acute on Chronic? Uncomplicated (without systemic symptoms) or Complicated (systemic symptoms)? @ -Ring finger injury Side effects of treatment? @ -No Exacerbation, Progression, or Severe Exacerbation? @ -No Poses a threat to life or bodily function? How? (Chest pain, USA, VT, pneumonia, PE, COPD, DKA, ARF, appy, cholecystitis, CVA, Diverticulitis, Homicidal, Suicida l, threat to staff... and all critical care pts) @ -No Disposition Clinical Impression: Tight ring on finger Disposition: HOME SELF-CARE Condition: Good Is patient prescribed a controlled substance at d/c from ED?: No Referrals: Elbert Hernandez DO [Primary Care Provider] - 1-2 days Time of Disposition: 10:23
--- NOTE | 2024-04-04 10:20 | XR ---
EXAMINATION TYPE: XR hand complete LT DATE OF EXAM: 04/04/2024 CLINICAL HISTORY: pain TECHNIQUE: Frontal, lateral and oblique images of the left hand are obtained. COMPARISON: None. FINDINGS: There is no acute fracture/dislocation evident. The joint spaces appear within normal limi ts. The overlying soft tissue appears unremarkable. IMPRESSION: There is no acute fracture or dislocation. ICD 10 NO FRACTURE, INITIAL EVALUATION
[2024-04-04] MEDS: traMADol 50 MG TAB PO STA (10:31)
[2024-04-04] MEDS: traMADol 50 MG STARTER PACK 3 TAB BTL PO STA (10:31)
== END 2024-04-04 10:35 | disposition home or self-care (01) ==
LOC: EC 09:51
DX: S60.449A External constriction of unspecified finger, initial encounter (principal); Z90.49 Acquired absence of other specified parts of digestive tract; Z88.8 Allergy status to other drugs, medicaments and biological substances; W49.04XA Ring or other jewelry causing external constriction, initial encounter
CPT/HCPCS: 99283

== ENCOUNTER → 2024-05-29 | Outpatient (CLI) | payer MEDICARE, BC ==
--- NOTE | 2024-05-30 22:49 | MM ---
Reason for Exam: Screening (asymptomatic). Last mammogram was performed 1 year(s) and 1 month(s) ago. Patient History: Menarche at age 10. First Full-Term at age 22. Left ovary removed at age 37. Right ovary removed at age 37. Hysterectomy at age 37. Postmenopausal. Patient used Hormonal Contraceptives for 8 years. Tamoxifen for 1 year from age 37 until age 38. 07/31/1998, Benign Excisional Biopsy on the right side. Risk Values: Devora 5 year model risk: 1.6%. NCI Lifetime model risk: 7.5%. Prior Study Comparison: 05/08/2021 Bilateral Screening Mammogram, [facility]. 05/10/2022 Bilateral MG 3D screening mammo w/cad, [facility]. 05/11/2023 Bilateral MG 3D screening mammo w/cad, [facility]. Tissue Density: The breasts are heterogeneously dense, which may obscure small masses. Findings: Analyzed By CAD. The pattern is symmetrical. No significant interval change is evident. No suspicious groups of microcalcifications, spiculated or lobular masses, architectural distortion or other secondary signs of malignancy are mammographically apparent. Overall Assessment: Negative, BI-RAD 1 Management: Screening Mammogram of both breasts in 1 year. A negative mammogram report should not preclude additional follow up of suspicious palpable abnormalities. Patient should continue monthly self breast exam. A clinical breast exam by your physician is recommended on an annual basis and results should be correlated with mammographic findings. Note on Devora scores and lifetime risk: 1. A Devora score greater than 3% is considered moderate risk. If this is the case, consider specialist referral to assess eligibility for a risk reducing agent. 2. If overall lifetime risk for the development of breast cancer is 20% or higher, the patient may qualify for future screening with alternating mammogram and breast MRI. [facility], , 05/30/2024 10:46 PM. Electronically signed and approved by: Max Egan D.O. Radiologis
== END | disposition home or self-care (01) ==
LOC: RADMAMWWP 09:49
PROVIDERS: ATTEND Family Medicine
CPT/HCPCS: 77063; 77067

== ENCOUNTER 2024-06-08 06:15 | Emergency (ER) | payer MEDICARE, BC ==
[2024-06-08 06:22] VITALS: TEMP 97.9
--- NOTE | 2024-06-08 06:33 | ED ---
General Adult HPI - General Chief complaint: Shortness of Breath Stated complaint: SOB Time Seen by Provider: 06/08/24 06:26 Source: patient, EMS, RN notes reviewed Mode of arrival: EMS Limitations: no limitations - History of Present Illness Initial comments: 59-year-old female presents emerged part complaint of weakness. Patient states that she does not feel well the last 2 days she states there was some cold-like symptoms runny nose cough and congestion. She states she has fallen a few times without injuries. Patient states that she has had multiple bouts of diarrhea. Patient denies any head injury she states that 21 years ago she had glioblastoma surgery radiation chemotherapy. She denies any sick contacts. Patient had no recorded fever. She denies any chest pain denies a productive cough. - Related Data Home Medications Medication Instructions Recorded Confirmed clonazePAM [KlonoPIN] 0.5 mg PO HS 10/11/16 11/25/23 Cyclobenzaprine [Flexeril] 10 mg PO HS 07/02/19 11/25/23 Amitriptyline HCl 30 mg PO HS 10/21/19 11/25/23 Zonisamide [Zonegran] 200 mg PO HS 04/09/20 11/25/23 Calcium Carbonate/Vitamin D3 1 tab PO QAM 07/22/21 11/25/23 [Calcium 600 mg-Vit D3 5 mcg (200 unit)] Citalopram Hydrobromide [CeleXA] 40 mg PO HS 07/22/21 11/25/23 Famotidine [Pepcid] 20 mg PO BID 07/22/21 11/25/23 Levothyroxine Sodium [Synthroid] 75 mcg PO QAM 07/22/21 11/25/23 SUMAtriptan succinate 6 mg SQ DAILY PRN 11/24/21 11/25/23 cycloSPORINE 0.05% OPHTH SOLN 1 drop BOTH EYES BID 11/24/21 11/25/23 [Restasis] Multivit with Calcium,Iron,Min 1 tab PO QAM 11/25/23 [Women's Multivitamin] Raloxifene HCl 60 mg PO Q48H 11/25/23 Allergies Allergy/AdvReac Type Severity Reaction Status Date / Time phenytoin sodium Allergy Severe Anaphylaxis Verified 03/03/24 20:36 [From Dilantin] phenytoin sodium extended Allergy Severe Anaphylaxis Verified 03/03/24 20:36 [From Dilantin] lamotrigine [From Lamictal] Allergy Rash/Hives Verified 03/03/24 20:36 TAPE AdvReac Unknown Uncoded 03/03/24 20:36 Review of Systems ROS Statement: Those systems with pertinent positive or pertinent negative responses have been documented in the HPI. ROS Other: All systems not noted in ROS Statement are negative. Past Medical History Past Medical History: Cancer, GERD/Reflux, Seizure Disorder, Thyroid Disorder Additional Past Medical History / Comment(s): 2003 glioblastoma/brain surgery/chemo/radiation and pt states she has some expressive aphasia/gait disturbance, focal seizure since brain surgery/pt believes last seizure was in 2006, osteoporosis, hypothyroid. History of Any Multi-Drug Resistant Organisms: None Reported Past Surgical History: Cholecystectomy, Hysterectomy Additional Past Surgical History / Comment(s): Brain surgery for Cancer; EGD, colonoscopy Past Anesthesia/Blood Transfusion Reactions: No Reported Reaction Past Psychological History: No Psychological Hx Reported Smoking Status: Never smoker Past Alcohol Use History: None Reported Past Drug Use History: None Reported - Past Family History Father Family Medical History: Cancer Additional Family Medical History / Comment(s): Brain tumor Mother Family Medical History: Renal Disease Additional Family Medical History / Comment(s): Heart problems, renal failure, obesity. General Exam Limitations: no limitations General appearance: alert, in no apparent distress Head exam: Present: atraumatic, normocephalic, normal inspection Eye exam: Present: normal appearance, PERRL, EOMI. Absent: scleral icterus, conjunctival injection, periorbital swelling ENT exam: Present: normal exam, normal oropharynx, mucous membranes moist Neck exam: Present: normal inspection, full ROM. Absent: tenderness, meningismus, lymphadenopathy Respiratory exam: Present: normal lung sounds bilaterally. Absent: respiratory distress, wheezes, rales, rhonchi, stridor Cardiovascular Exam: Present: regular rate, normal rhythm, normal heart sounds. Absent: systolic murmur, diastolic murmur, rubs, gallop, clicks GI/Abdominal exam: Present: soft, normal bowel sounds. Absent: distended, tenderness, guarding, rebound, rigid Back exam: Absent: CVA tenderness (R), CVA tenderness (L) Neurological exam: Present: alert Skin exam: Present: warm, dry, intact, normal color. Absent: rash Course Vital Signs 06/08/24 06/08/24 06:17 06:22 Temperature 97.9 F Pulse Rate 74 Respiratory 18 20 Rate Blood Pressure 103/67 O2 Sat by Pulse 99 Oximetry EKG Findings - EKG Comments: EKG Findings:: EKG performed at 603 sinus rhythm rate was 65 [place] 164 QRS 96 QT/QTc 421/433 - EKG Results: EKG: interpreted by ENRIQUE Medical Decision Making - Medical Decision Making Was pt. sent in by a medical professional or institution (DAVONTE Kurtz, VISITING HOUSEKEEPER, urgent care, hospital, or long term...) When possible be specific @ -No Did you speak to anyone other than the patient for history (EMS, parent, family, police, friend...)? What history was obtained from this source @ -No Did you review nursing and triage notes (agree or disagree)? Why? @ -I reviewed and agree with nursing and triage notes Were old charts reviewed (outside hosp., previous admission, EMS record, old EKG, old radiological studies, urgent care reports/EKG's, long term records)? Report findings @ -No old charts were reviewed Differential Diagnosis (chest pain, altered mental status, abdominal pain women, abdominal pain men, vaginal bleeding, weakness, fever, dyspnea, syncope, headache, dizziness, GI bleed, back pain, seizure, CVA, palpatations, mental health, musculoskeletal)? @ -COVID 19, RSV, influenza, pneumonia, acute bronchitis, URI, this list is not all inclusive EKG interpreted by me (3pts min.). @ -As above X-rays interpreted by me (1pt min.). @ -Chest x-ray shows no acute cardiopulmonary process CT interpreted by me (1pt min.). @ -None done U/S interpreted by me (1pt. min.). @ -None done What testing was considered but not performed or refused? (CT, X-rays, U/S, labs)? Why? @ -None What meds were considered but not given or refused? Why? @ -None Did you discuss the management of the patient with other professionals (professionals i.e. DAVONTE Kurtz, VISITING HOUSEKEEPER, lab, RT, psych nurse, social scientist, insulation sprayer, teacher, consular officer, casework specialist)? Give summary @ -No Was smoking cessation discussed for >3mins.? @ -No Was critical care preformed (if so, how long)? @ -No Were there social determinants of health that impacted care today? How? (Homelessness, low income, unemployed, alcoholism, drug addiction, t ransportation, low edu. Level, literacy, decrease access to med. care, snf, rehab)? @ -No Was there de-escalation of care discussed even if they declined (Discuss DNR or withdrawal of care, Hospice)? DNR status @ -No What co-morbidities impacted this encounter? (DM, HTN, Smoking, COPD, CAD, Cancer, CVA, ARF, Chemo, Hep., AIDS, mental health diagnosis, sleep apnea, morbid obesity)? @ -Glioblastoma Was patient admitted / discharged? Hospital course, mention meds given and route, prescriptions, significant lab abnormalities, going to OR and other pertinent info. @ -Discharge patient was hydrated, given antidiarrheal medication. Patient does have COVID-19 patient's x-ray is unremarkable patient is discharged in stable condition with supportive treatment Undiagnosed new problem with uncertain prognosis? @ -No Drug Therapy requiring intensive monitoring for toxicity (Heparin, Nitro, Insulin, Cardizem)? @ -No Were any procedures done? @ -No Diagnosis/symptom? @ -COVID-19 Acute, or Chronic, or Acute on Chronic? @ -Acute Uncomplicated (without systemic symptoms) or Complicated (systemic symptoms)? @ -Uncomplicated Side effects of treatment? @ -No Exacerbation, Progression, or Severe Exacerbation? @ -No Poses a threat to life or bodily function? How? (Chest pain, USA, IA, pneumonia, PE, COPD, DKA, ARF, appy, cholecystitis, CVA, Diverticulitis, Homicidal, Suicidal, threat to staff... and all critical care pts) @ -No - Lab Data Result diagrams: 06/08/24 06:37 06/08/24 06:37 Lab Results 06/08/24 06/08/24 06/08/24 Range/Units 06:37 06:37 06:37 WBC 6.6 (3.8-10.6) k/uL RBC 4.00 (3.80-5.40) m/uL Hgb 12.4 (11.4-16.0) gm/dL Hct 37.0 (34.0-46.0) % MCV 92.6 (80.0-100.0) fL MCH 31.0 (25.0-35.0) pg MCHC 33.5 (31.0-37.0) g/dL RDW 12.7 (11.5-15.5) % Plt Count 226 (150-450) k/uL MPV 7.0 Neutrophils % 79 % Lymphocytes % 11 % Monocytes % 7 % Eosinophils % 1 % Basophils % 0 % Neutrophils # 5.2 (1.3-7.7) k/uL Lymphocytes # 0.7 L (1.0-4.8) k/uL Monocytes # 0.4 (0-1.0) k/uL Eosinophils # 0.1 (0-0.7) k/uL Basophils # 0.0 (0-0.2) k/uL Sodium 136 L (137-145) mmol/L Potassium 3.4 L (3.5-5.1) mmol/L Chloride 107 (98-107) mmol/L Carbon Dioxide 23 (22-30) mmol/L Anion Gap 6 mmol/L BUN 13 (7-17) mg/dL Creatinine 1.29 H (0.52-1.04) mg/dL Est GFR (CKD-EPI)AfAm 52 (>60 ml/min/1.73 sqM) Est GFR (CKD-EPI)NonAf 45 (>60 ml/min/1.73 sqM) Glucose 123 H (74-99) mg/dL Plasma Lactic Acid Bogdan 1.3 (0.7-2.0) mmol/L Calcium 9.4 (8.4-10.2) mg/dL Magnesium 2.3 (1.6-2.3) mg/dL Total Bilirubin 0.6 (0.2-1.3) mg/dL AST 30 (14-36) U/L ALT 19 (4-34) U/L Alkaline Phosphatase 63 (38-126) U/L Total Protein 6.7 (6.3-8.2) g/dL Albumin 4.2 (3.5-5.0) g/dL Lipase 103 (23-300) U/L Influenza Type A (PCR) (Not Detectd) Influenza Type B (PCR) (Not Detectd) RSV (PCR) (Not Detectd) SARS-CoV-2 (PCR) (Not Detectd) 06/08/24 Range/Units 06:37 WBC (3.8-10.6) k/uL RBC (3.80-5.40) m/uL Hgb (11.4-16.0) gm/dL Hct (34.0-46.0) % MCV (80.0-100.0) fL MCH (25.0-35.0) pg MCHC (31.0-37.0) g/dL RDW (11.5-15.5) % Plt Count (150-450) k/uL MPV Neutrophils % % Lymphocytes % % Monocytes % % Eosinophils % % Basophils % % Neutrophils # (1.3-7.7) k/uL Lymphocytes # (1.0-4.8) k/uL Monocytes # (0-1.0) k/uL Eosinophils # (0-0.7) k/uL Basophils # (0-0.2) k/uL Sodium (137-145) mmol/L Potassium (3.5-5.1) mmol/L Chloride (98-107) mmol/L Carbon Dioxide (22-30) mmol/L Anion Gap mmol/L BUN (7-17) mg/dL Creatinine (0.52-1.04) mg/dL Est GFR (CKD-EPI)AfAm (>60 ml/min/1.73 sqM) Est GFR (CKD-EPI)NonAf (>60 ml/min/1.73 sqM) Glucose (74-99) mg/dL Plasma Lactic Acid Bogdan (0.7-2.0) mmol/L Calcium (8.4-10.2) mg/dL Magnesium (1.6-2.3) mg/dL Total Bilirubin (0.2-1.3) mg/dL AST (14-36) U/L ALT (4-34) U/L Alkaline Phosphatase (38-126) U/L Total Protein (6.3-8.2) g/dL Albumin (3.5-5.0) g/dL Lipase (23-300) U/L Influenza Type A (PCR) Not Detected (Not Detectd) Influenza Type B (PCR) Not Detected (Not Detectd) RSV (PCR) Not Detected (Not Detectd) SARS-CoV-2 (PCR) Detected A (Not Detectd) Disposition Clinical Impression: COVID-19 Disposition: HOME SELF-CARE Condition: Stable Instructions (If sedation given, give patient instructions): COVID-19 (Coronavirus Disease 2019) (ED) Additional Instructions: Please return to the Emergency Department if symptoms worsen or any other concerns. Is patient prescribed a controlled substance at d/c from ED?: No Referrals: Elbert Hernandez DO [Primary Care Provider] - 1-2 days Time of Disposition: 08:40
[2024-06-08] MEDS: SODIUM CHLORIDE 0.9% 1,000 ML IV STA (06:35)
[2024-06-08] MEDS: SODIUM CHLORIDE 0.9% 500 ML 500 ML IV STA (06:35)
[2024-06-08 06:58] LABS: Basophils % (A) 0 %; Eosinophils # (A) 0.1 k/uL (0-0.7); Eosinophils % (A) 1 %; HGB 12.4 gm/dL (11.4-16.0); Lymphocytes # (A) 0.7 k/uL (1.0-4.8); Lymphocytes % (A) 11 %; MCHC 33.5 g/dL (31.0-37.0); MCV 92.6 fL (80.0-100.0); Monocytes # (A) 0.4 k/uL (0-1.0); Monocytes % (A) 7 %; Neutrophils # (A) 5.2 k/uL (1.3-7.7); Neutrophils % (A) 79 %; Platelet Count 226 k/uL (150-450); RDW 12.7 % (11.5-15.5); WBC 6.6 k/uL (3.8-10.6)
[2024-06-08 07:09] LABS: ALT 19 U/L (4-34); AST 30 U/L (14-36); African American GFR (CKD) 52 (>60 ml/min/1.73 sqM); Albumin 4.2 g/dL (3.5-5.0); Alkaline Phosphatase 63 U/L (38-126); Anion Gap 6 mmol/L; Blood Urea Nitrogen 13 mg/dL (7-17); Calcium 9.4 mg/dL (8.4-10.2); Carbon Dioxide 23 mmol/L (22-30); Chloride 107 mmol/L (98-107); Glucose 123 mg/dL (74-99); Lipase 103 U/L (23-300); Magnesium 2.3 mg/dL (1.6-2.3); Non-African American GFR(CKD) 45 (>60 ml/min/1.73 sqM); Potassium 3.4 mmol/L (3.5-5.1); Sodium 136 mmol/L (137-145); Total Bilirubin 0.6 mg/dL (0.2-1.3); Total Protein 6.7 g/dL (6.3-8.2)
[2024-06-08] MEDS: DIPHENOX-ATROP 2.5-0.025 MG 1 EACH TAB PO STA (08:51)
[2024-06-08] MEDS: DIPHENOX-ATROP STARTER PACK 8 TAB BTL PO STA (08:51)
[2024-06-08 09:30] VITALS: BP 130/60; PULSE 86; RESP 16
--- NOTE | 2024-06-08 09:55 | XR ---
EXAMINATION TYPE: Chest X-ray 2 Views DATE OF EXAM: 06/08/2024 COMPARISON: 08/17/2022 INDICATION: Short of breath TECHNIQUE: Frontal and lateral views of the chest are obtained. FINDINGS: The heart size is normal. The pulmonary vasculature is normal. The lungs are clear. IMPRESSION: 1. No acute pulmonary process. [facility], , 06/08/2024 8:47 AM
== END 2024-06-08 09:30 | disposition home or self-care (01) ==
LOC: EC 06:15
CPT/HCPCS: 36415; 71046; 80053; 83605; 83690; 83735; 85025; 87636; 93005; 96360; 99285

== ENCOUNTER → 2024-07-24 | Outpatient (CLI) | payer BC, MEDICARE ==
--- NOTE | 2024-07-29 22:50 | BD ---
EXAMINATION TYPE: Axial Bone Density DATE OF EXAM: 07/24/2024 CLINICAL HISTORY: 59 years old Female. ICD-10 CODE: M81.0 AGE-RELATED OSTEOPOROSIS W/O CURRENT PATHO LO , Additional History: Height: 63.8 Weight: 128 FRAX RISK QUESTIONS: History of Fracture in Adulthood: yes Secondary Osteoporosis: yes 3. Menopause before 45: yes RISK FACTORS HISTORY OF: brain tumor, natali at 39 yrs old, foot and ankle fx, as an adult, patella and tib fib fractures, using cane now, arthritis, osteoporosis MEDICATIONS: chemo, radiation therapy, calcium, reflux meds, calcium and vit d, hx of brain ca, celexa, flexeril, osteoarthritis, osteoporosis, Thyroid Medications: yes, synthroid, 25 yrs, Osteoporosis Medications: yes, prolia, stopped 2 yrs ago now, osteoporosis meds, every other day, new /name unknown/8 mos now EXAM MEASUREMENTS: Bone mineral densitometry was performed using the [employer] System. Bone mineral density as measured about the Lumbar spine is: ----- L1-L4(G/cm2): 1.129 T Score Values are as follows: ----- L1: -0.6 ----- L2: -0.7 ----- L3: 0.4 ----- L4: -1.0 ----- L1-L4: -0.4 Z Score Values are as follows: ----- L1: 0.9 ----- L2: 0.9 ----- L3: 2.0 ----- L4: 0.5 ----- L1-L4: 1.1 Bone mineral density has: Increased 3.4% since study of: 03.17.2021 Bone mineral density about the R hip (g/cm2): 0.705 Bone mineral density about the L hip (g/cm2): 0.770 T Score values are as follows: -----R Neck: -1.8 -----L Neck: -1.7 -----R Total: -2.4 -----L Total: -1.9 Z Score values are as follows: -----R Neck: -0.3 -----L Neck: -0.2 -----R Total: -1.2 -----L Total: -0.7 Bone mineral density has: Increased 3.7% since study of: 03.17.2021 FRAX%s: The graph provided illustrates a 14.5% chance for a major osteoporotic fx and a 1.8% chance f or the hips probability for fx in 10 years time. IMPRESSION: Osteopenia (T Score between -2.5 and -1). There is slightly increased risk of fracture and the patient may be considered for treatment. Re-Screen 2-5 years. NOTE: T-SCORE=SD OF THE YOUNG ADULT MEAN. [facility], , 07/29/2024 10:47 PM
== END | disposition home or self-care (01) ==
LOC: RADBDWWP 08:33
PROVIDERS: ATTEND Family Medicine
DX: M81.0 Age-related osteoporosis without current pathological fracture (principal); M85.89 Other specified disorders of bone density and structure, multiple sites
CPT/HCPCS: 77080

== ENCOUNTER → 2024-09-03 | Outpatient (CLI) | payer MEDICARE, BC ==
--- NOTE | 2024-09-03 11:04 | MR ---
EXAMINATION TYPE: MR cervical spine wo con DATE OF EXAM: 09/03/2024 9:43 AM COMPARISON: CT scan 10/21/2019 CLINICAL INDICATION: Female, 59 years old with history of spinal stenosis, neck pain that radiates do wn right arm, imbalance, falls TECHNIQUE: Multiplanar, multisequence images of the cervical spine were acquired without contrast. C2-C3: No evidence for degenerative disc disease. No disc bulge/herniation or protrusion. No Canal stenosis. Foramina are patent bilaterally. C3-C4: A grade 1 anterolisthesis with mild disc desiccation and uncovertebral joint hypertrophy. No d isc herniation or canal stenosis. No foraminal encroachment. C4-C5: Mild to moderate degenerative disc disease with broad-based central disc bulging. Uncovertebra l joint hypertrophy and facet arthropathy. Mild right foraminal encroachment. Borderline central sten osis. C5-C6: Moderate degenerative disc disease with broad-based disc bulging but no focal herniation or ca nal stenosis. Uncovertebral joint hypertrophy contributes to mild bilateral foraminal encroachment. F ar right lateral disc protrusion not excluded. C6-C7: No evidence for degenerative disc disease. No disc bulge/herniation or protrusion. No Canal stenosis. Foramina are patent bilaterally. Moderate degenerative disc disease. C7-T1: No evidence for degenerative disc disease. No disc bulge/herniation or protrusion. No Canal stenosis. Foramina are patent bilaterally. Cervical segments are intact. There is normal alignment. Cervical spinal cord is of normal signal. Craniovertebral junction relationships are within normal limits. IMPRESSION: 1. Multilevel moderate degenerative disc disease most marked at C5-6 and C6-C7. 2. A posterior broad-based disc osteophyte complex or disc protrusion C4-C5 with right foraminal encr oachment and borderline central stenosis. 3. Posterior disc osteophyte complex C5-C6. Mild bilateral foraminal encroachment. Far right lateral disc bulge or protrusion not excluded. Poorly clinically. [facility], , 09/03/2024 11:02 AM
== END | disposition home or self-care (01) ==
LOC: RADMRIMAIN 08:48
PROVIDERS: ATTEND Psychiatry & Neurology Neurology
DX: M48.02 Spinal stenosis, cervical region (principal); M50.322 Other cervical disc degeneration at C5-C6 level; M25.78 Osteophyte, vertebrae
CPT/HCPCS: 72141

== ENCOUNTER → 2025-02-13 | Outpatient (CLI) | payer MEDICARE, BC ==
--- NOTE | 2025-02-16 17:50 | MR ---
EXAMINATION TYPE: MR brain wo/w con DATE OF EXAM: 02/13/2025 8:35 AM COMPARISON: None. 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 TECHNIQUE: Multiplanar, multiecho imaging on a 3.0 Opal magnet is performed through the brain. Stud y is performed within 24 hours of arrival to the hospital.Multiplanar, multiecho imaging on a 3.0 Maritza la magnet is performed through the knee. IV Contrast: 5 mL Gadobutrol (None, if empty) FINDINGS: The craniovertebral junction is normal. The pituitary is normal. Diffusion-weighted imaging is performed. No abnormal hyperintensity is present to suggest an acute i ntracranial infarct or acute ischemic change. There is confluent periventricular and deep white matter changes through the bilateral centrum semiov deidre greater on the left. This could be postradiation changes. No abnormal enhancement is evident in t his area or elsewhere within the brain There is a hyperintense area on T2-weighted sequences in the p eriventricular white matter measuring 1.0 cm. Series 401 image 22. Ventricles and sulci are appropriate for the patient age. No significant interval changes are evident. IMPRESSION: 1. Stable postsurgical changes left centrum semiovale and occipital lobe. No new lesions evident. No suspicious enhancement identified. 2. Confluent white matter changes greater on the left likely related to postradiation changes [facility], , 02/16/2025 5:48 PM
== END | disposition home or self-care (01) ==
LOC: RADMRIMAIN 07:28
PROVIDERS: ATTEND Neurological Surgery
DX: C71.3 Malignant neoplasm of parietal lobe (principal); Z98.890 Other specified postprocedural states; R90.82 White matter disease, unspecified
CPT/HCPCS: 70553; A9585